=== PATIENT | male | born 1950 | race Caucasian/White ===

== ENCOUNTER 2023-10-20 08:54 | Outpatient (CLI) | payer BC, MEDICARE, OTHER, SELFPAY ==
--- NOTE | ~2023-10-20 | MR_ITS ---
EXAMINATION: MR brain/brain stem wo con DATE: 10/20/2023 09:38 INDICATION: Right-sided headache. TECHNIQUE: Magnetic resonance imaging (MRI) of the brain and brainstem was performed without intraven ous contrast. COMPARISON: None. FINDINGS: There is no intracranial hemorrhage, acute infarction, or abnormal intracranial mass lesion . There are scattered areas of nonspecific increased T2-weighted signal intensity in the cerebral whi te matter, which is within normal limits for the patient's age. The ventricles are normal in size. The paranasal sinuses are clear. The orbits are normal. The mastoid air cells are normal. IMPRESSION: 1. Normal aging brain. Reviewed, dictated and finalized at location E. IMPRESSION: 1. Normal aging brain.
== END 2023-10-20 08:55 ==
LOC: MICIMG 08:55
PROVIDERS: PCP Internal Medicine; Visit Provider Internal Medicine
DX: R51.9 Headache, unspecified (principal)
CPT/HCPCS: 70551

== ENCOUNTER 2024-11-25 14:19 | Inpatient (IN) | payer MEDICARE, BC, OTHER, SELFPAY ==
[2024-11-25] VITALS (26 sets, daily range): BP systolic 138–183; BP diastolic 71–99; PULSE 85–103; RESP 14–29; TEMP 36.8–37.2; O2SAT 94–100; BMI 31.2
--- NOTE | ~2024-11-25 | CT_ITS ---
CLINICAL INDICATION: Abdominal distention and fever COMPARISON: None. TECHNIQUE: Multiple contiguous axial images of the abdomen and pelvis were performed following the ad ministration of with 100 mL Omnipaque-350 intravenous contrast The dose-length product (DLP) was 946.31 mGy-cm. Automated exposure control and iterative reconstruction technique were employed. FINDINGS/OBSERVATIONS: Visualized lower thorax: The bilateral lung bases are clear. The heart is of normal size, without pericardial effusion. Liver: The liver demonstrates homogeneous enhancement and is markedly enlarged measuring 24 cm in longitudin al dimension. Gallbladder and biliary system: The gallbladder is only minimally distended, and otherwise unremarkable. Pancreas: The pancreas enhances homogeneously without ductal dilatation. Spleen: The spleen enhances homogeneously and is not enlarged. Kidneys: Multiple stones are identified within the bilateral kidneys. Within the upper pole of the left kidney is a 12.5 mm calculus. Within the interpolar region of the left kidney is a 14 mm calculus. Within the lower pole of the left kidney is a 12 mm calculus. Within the lower pole of the right kidney is 8 mm calculus. Within the lower pole of the right kidney is a 5.5 mm calculus. Within the lower pole of the right kidney is a 6 mm calculus. Within the upper pole of the right kidney is a 8.4 mm calculus. A rim calcified focus of decreased attenuation is identified exophytic from the upper pole of the rig ht kidney, too small to characterize. Bilateral hydroureteronephrosis, left greater than right, is identified with wall enhancement of the bilateral ureters. No discrete obstructing stone is appreciated. Adrenal glands: Unremarkable. Gastrointestinal tract: Colonic diverticulosis without surrounding inflammatory change. Appendix: The appendix is not definitively visualized. However, no pericecal inflammatory change is identified suggest the presence of acute appendicitis. Vasculature: Calcified atherosclerotic disease. Lymph nodes: No pathologically enlarged or morphologically suspicious lymph nodes within the retroperitoneum or at the root of the mesentery. Pelvic structures: The bladder is distended, and demonstrates significantly thickened hurt[place] with surrounding inflammator y change, findings consistent with cystitis. The prostate gland is enlarged, demonstrating both bulky calcifications and inflammatory change. Body wall and musculoskeletal: Age appropriate degenerative disease within the lower thoracic and lumbosacral spines. IMPRESSION: Findings consistent with infection of the bladder with the bilateral ureteritis, and possible early p yelonephritis. Hepatomegaly. Reviewed, dictated and finalized at location A. IMPRESSION: Findings consistent with infection of the bladder with the bilateral ureteritis , and possible early pyelonephritis. Hepatomegaly.
--- NOTE | ~2024-11-25 | US_ITS ---
US renal BI 11/28/2024 08:33 Procedure: Realtime transabdominal ultrasound of the kidneys and bladder. Indication: Hydronephrosis Comparison: CT dated 11/25/2024 Findings: There is mild-moderate right hydronephrosis and mild left hydronephrosis. There is right re nal cyst measuring 2.2 cm. There are echogenic foci in both kidneys located centrally, suspicious for renal stones, largest in the left kidney measuring 2.3 cm. The right kidney measures 12.5 cm and lef t kidney measures 13.1 cm. Bladder is decompressed by Zuniga catheter. Impression: 1: Bilateral echogenic foci, suspicious for renal stones. 2: Bilateral hydronephrosis, right greater than left. Reviewed, dictated and finalized at location A. Impression: 1: Bilateral echogenic foci, suspicious for renal stones. 2: Bilateral hydronephrosis, right greater than left.
--- NOTE | ~2024-11-25 | XR_ITS ---
CHEST RADIOGRAPH CLINICAL HISTORY: Fevers . COMPARISON: None available TECHNIQUE: Single portable view of the chest. FINDINGS The cardiomediastinal silhouette is unremarkable. Increased interstitial markings are identified bilaterally, findings suggesting mild pulmonary vascul ar congestion. The remainder of the lungs are clear. IMPRESSION: Mild pulmonary vascular congestion, without focal infiltrate or effusion. Reviewed, dictated and finalized at location A.
--- OUTSIDE RECORDS SUMMARY | 2024-11-25 14:28 | XMS_ITS | Encounter Summary ---
Author Organization [facility] Address [address] [place] [address] Care Team Providers Care Engraver Set Up Operator Name Role Phone Unavailable Primary Care Provider Unavailabl e Encounter Details Date Type Department Care Team (Late st Contact Info) Description 07/27/2022 Lab Requisition [facility] Derm[facility] Lab [address] [place] [phone] Matthieu Sapp MD [address] [place] [address] Social History Tobacco Use Types Packs/Day Years Used Date Smoking Tobacco: Never Assessed Sex and Gender Information Value Date Recorded Sex Assigned at Not on file Legal Sex Male 5:02 PM CDT Gender Identity Not on file Sexual Orientation Not on file documented as of this encounter Plan of Treatment Not on file documented as of this encounter Procedures Procedure Name Priority Date/Time Associated Diagnosis Comments DERMATOPATHOLOGY Routine 07/25/2022 12:0 0 AM CDT documented in this encounter Results * DERMATOPATHOLOGY (07/25/2022 12:00 AM CDT) Case Report Dermatopathology Report Case: [id number] Authorizing Provider: Matthieu Sapp MD Collected: 07/25/2022 12:00 AM Ordering Location: [facility] Received: 07/27/2022 05:54 AM Pathologist: Genoveva Cruz MD Specimen: Skin, ant scalp 3 6:00 PM CDT DERMATOPATHOLOGY LABORATORY Final Diagnosis Specimen A. 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 The specimen consists of a shave biopsy measuring 7x7x1 mm. Jar 0. 3 6:00 PM CDT DERMATOPATHOLOGY LABORATORY Microscopic Description Specimen A. SKIN, ant scalp: The epidermis shows parakeratosis, full thickness disorderly maturation of keratinocytes, mitoses at different levels, and dyskeratotic cells. This lesion is present at the margin of the specimen. 3 6:00 PM CDT DERMATOPATHOLOGY LABORATORY Disclaimer An external and internal positive and negative controls are appropriate for the histochemical, immunohistochemical and immunofluorescence stain(s) in this case (if any), except where stated explicitly. The performance characteristics of the stain(s) cited in this report were developed and its performance characteristic determined by the Dermatopathology Laboratory at [facility], directed by Dr. Carine Rebollar. These tests need not be, and therefore are not, approved by the [place] Food and Drug Administration. The tests are used for clinical purposes. Billing Codes Specimen Charges Stain Charges 67534 1 3 6:00 PM CDT DERMATOPATHOLOGY LABORATORY Embedded Images 3 6:00 PM CDT DERMATOPATHOLOGY LABORATORY Pathology/Cytolog y TISSUE SPECIMEN FROM SKIN / Unknown 07/25/2022 07/27/2022 5:54 AM CDT Matthieu Sapp MD LAB - PATHOLOGY/CYTOLOGY ORDERAB LES Final Result DERMATOPATHOLOGY LABORATORY [facility] - Department of Dermatology [address], [address] [phone] documented in this encounter Visit Diagnoses Not on filedocumented in this encounter
--- OUTSIDE RECORDS SUMMARY | 2024-11-25 14:28 | XMS_ITS | Clinical Summary ---
Author Organization [facility] Address [address] [place] [address] Care Team Providers Care Stone Operator Name Role Phone Unavailable Primary Care Provider Unavailabl e Source Comments [facility],non-owned Affiliates and Associated Physician Practices is amultiple site organization consisting of ambulatory clinics and hospital sitesin [place], [place], [place] and [place]. This disclosure is being madepursuant to the Care Everywhere program and may not contain all information available regarding this patient. Last updated 18.[facility] [employer] Social History Tobacco Use Types Packs/Day Years Used Date Smoking Tobacco: Never Assessed Sex and Gender Information Value Date Recorded Sex Assigned at Not on file Legal Sex Male 5:02 PM CDT Gender Identity Not on file Sexual Orientation Not on file Plan of Treatment Health Maintenance Due Date Last Done Comments HEPATITIS C SCREENING 08/06/1968 DTAP/TDAP/TD VACCINES (1 - Tdap) 08/11/1967 PNEUMOCOCCAL VACCINE 50+ (1 of 1 - PCV) 1998 ZOSTER VACCINE (1 of 2) 1998 Respiratory Syncytial Virus (RSV) Vaccine Pt: or over 60 yrs (1 - 1-dose 75+ series) 08/11/2023 COVID-19 VACCINE ( - 2023-2 5 season) 2023 DEPRESSION SCREENING 04/23/2024 INFLUENZA VACCINE (#1) 2024 HEPATITIS B VACCINE Aged Out No longe r eligible based on patient's age to complete this topic HIB VACCINE Aged Out No longer eligi ble based on patient's age to complete this topic HPV VACCINE Aged Out No longer eligi ble based on patient's age to complete this topic MENINGOCOCCAL (Group B) VACC INE SHARED DECISION-MAKING Aged Out No longer eligibl e based on patient's age to complete this topic MENINGOCOCCAL GROUPS A/C/Y/W VACCINE Aged Out No longer eligible b ased on patient's age to complete this topic Insurance ANTH Member Subscriber Plan / Payer (Ef fective 2011-Present) Name:Mark Mays Sr Relation to Subscriber:Self Name:MARCELLE MAYS SR Payer ID:[id number] (NAIC) Type:[facility] Address: [facility] [id number] [place] [id number]
--- OUTSIDE RECORDS SUMMARY | 2024-11-25 14:28 | XMS_ITS | Encounter Summary ---
Author Organization [facility] Address [address] [place] [address] Care Team Providers Care Cotton Gin Yard Supervisor Name Role Phone Unavailable Primary Care Provider Unavailabl e Encounter Details Date Type Department Care Team (Late st Contact Info) Description 01/26/2020 Lab Requisition [facility] DermPath Lab [address] [place] [address] Matthieu Sapp MD [address] [place] [address] Social History Tobacco Use Types [...] Procedure Name Priority Date/Time Associated Diagnosis Comments DERMPATH SLIDE CONSULT Routine 01/26/2020 12:00 AM CDT documented in this encounter Results * DERMPATH SLIDE CONSULT (01/26/2020 12:00 AM CDT) Case Report Dermatopathology Report Case: [id number] Authorizing Provider: Matthieu Sapp MD Collected: 01/26/2020 12:00 AM Ordering Location: [facility] Received: 01/26/2020 05:09 PM Pathologist: Yanna Rebollar MD Specimen: Slide(s), Left lower eyelid, [id number]# [id number] 0 4:19 PM CDT DERMATOPATHOLOGY LABORATORY Final Diagnosis Specimen A. Slide(s), Left lower eyelid, OSC# [id number]: ACTINIC KERATOSIS, ERODED (L57.0) BRISK PLASMACYTIC INFILTRATE (see microscopic description and comment) 0 4:19 PM CDT DERMATOPATHOLOGY LABORATORY at 1618 CDT Clinical History Materials received from: [facility] [address] [place] [id number] Received at the request of Dr. Matthieu Sapp, a consult will be performed on 1 (H&E) slide(s) labeled [id number]. Bx Date: 01/19/2020 BCC, SCC vs other neoplasm. All slides returned. Any additional sections, special stains or immunohistochemical stains performed by our laboratory will be kept here on file. 0 4:19 PM CDT DERMATOPATHOLOGY LABORATORY Microscopic Description Specimen A. Slide(s), Left lower eyelid, OSC# [id number]: There is focal parakeratosis. The lower half of the epidermis shows disorderly maturation of keratinocytes with nuclear pleomorphism. The dermis shows a band-like infiltrate composed almost entirely of plasma cells. The epidermis is focally necrotic and covered with a scale-crust. There is fibrin at the base. COMMENT: The plasmacytic infiltrate is favored to be reactive and secondary to site and chronic inflammation. If there is clinical concern for a a secondary cutaneous plasmacytoma, kappa and lambda in-situ hybridization can be performed to assess for restriction. 0 4:19 PM CDT DERMATOPATHOLOGY LABORATORY Disclaimer An external and internal positive and negative controls are appropriate for the histochemical, immunohistochemical and immunofluorescence stain(s) in this case (if any), except where stated explicitly. The performance characteristics of the stain(s) cited in this report were developed and its performance characteristic determined by the Dermatopathology Laboratory at [facility], directed by Dr. Carine Rebollar. These tests need not be, and therefore are not, approved by the [place] Food and Drug Administration. The tests are used for clinical purposes. Billing Codes Specimen Charges Stain Charges 21475 1 0 4:19 PM CDT DERMATOPATHOLOGY LABORATORY Embedded Images 0 4:19 PM CDT DERMATOPATHOLOGY LABORATORY Pathology/Cytolog y SLIDE / Unknown 01/26/2020 01/26/2020 5:09 PM CDT us Matthieu Sapp MD LAB - PATHOLOGY/CYTOLOGY ORDERAB LES Final Result DERMATOPATHOLOGY LABORATORY [facility] - Department of Dermatology [facility] Specialized Medicine [address] [place] [address], [address]rd [place] [address], [facility] [phone] documented in this encounter Visit Diagnoses Not on filedocumented in this encounter
--- OUTSIDE RECORDS SUMMARY | 2024-11-25 14:28 | XMS_ITS | Clinical Summary ---
Author Organization [facility] Address [address] [facility] [place] [address] Phone Care Team Providers Care Consumer Services Advisor Name Role Phone Unavailable Primary Care Provider Unavailabl e Allergies No known active allergies Medications amLODIPine (NORVASC) 10 MG tablet 06/15/2016 Active atorvastatin (LIPITOR) 40 MG tablet 06/15/2016 Active azelastine (ASTELIN) 137 mcg (0.1 %) nasal spray 06/07/2016 Active FREESTYLE LITE STRIPS Strp 06/09/2016 Active TRUEPLUS LANCETS 28 gauge Misc 06/09/2016 Activ e VIAGRA 50 mg tablet 06/07/2016 Active JANUMET XR 100-1,000 mg ER tablet 06/15/2016 Active tamsulosin (FLOMAX) 0.4 mg 24 hr capsule 06/15/2016 Activ e furosemide (LASIX) 20 MG tablet 04/19/2016 Active simvastatin (ZOCOR) 20 MG tablet Take one tablet (20 mg total) by mouth nightly Active pantoprazole (PROTONIX) [address] tabletIndication s:GERD without esophagitis Take one tablet (40 mg total) by mouth one (1) time a day 30 tablet 1 12/09/2022 Active Active Problems No known active problems Family History Medical History Relation Name Comments Cancer Father Cancer Mother Relation Name Status Comments Father Mother Social History Tobacco Use Types Packs/Day Years Used Date Smoking Tobacco: Never Alcohol Use Standard Drinks/Week Comments No 0 (1 standard drink = 0.6 oz pur e alcohol) PHQ-2 Answer Date Recorded PHQ-2 Score 0 12/09/2022 Sexually Active Control Partners Comments Yes Female Sex and Gender Information Value Date Recorded Sex Assigned at Not on file Legal Sex Male 11:26 AM CDT Gender Identity Not on file Sexual Orientation Not on file Last Filed Vital Signs Vital Sign Reading Time Taken Comments Blood Pressure 126/64 12/09/2022 9:53 AM CDT Pulse 84 12/09/2022 9:53 AM CDT Temperature 36.6 C (97.9 F) 12/09/2022 9:53 AM CDT Respiratory Rate - - Oxygen Saturation 96% 12/09/2022 9:53 AM CDT Inhaled Oxygen Concentration - - Weight 106.1 kg (234 lb) 12/09/2022 9:53 AM CDT Height 177.8 cm (5' 10) 12/09/2022 9:53 AM CDT Body Mass Index 33.58 12/09/2022 9:53 AM CDT Plan of Treatment Health Maintenance Due Date Last Done Comments Hepatitis C Antibody Screen 1968 Medicare Subsequent AWV G0439 07/22/2014 RSV Immunization Pa tients or 60+ Years (1 - 1-dose 75+ series) 08/11/2023 Annual Depression Screening 12/10/2023 12/09/2022 COVID-19 Vaccine (3 2023-2 5 season) 2023 06/30/2020, 06/02/2020 Influenza Vaccine 12/22/2024 01/02/2021, , 12/31/2017, Additional history exists Pneumococcal Vaccine Age 50+ Completed 11/10/2019, 10/07/2018 Insurance [facility] [address] [id number] MEDICARE [facility]
--- OUTSIDE RECORDS SUMMARY | 2024-11-25 14:28 | XMS_ITS | Clinical Summary ---
Author Organization [facility] Address [address] [place] [address] Phone Care Team Providers Care Rose Grader Name Role Phone Mateus Lewis MD Primary Care Provider [phone] Allergies No known active allergies Medications amLODIPine (NORVASC) 10 mg tablet Take 10 mg by mouth daily. 7 Active atorvastatin (LIPITOR) 40 mg tablet Take 40 mg by mouth late in the day. 7 Active azelastine (ASTELIN) 137 mcg/actuation nasal spray Administer 1 [facility] in each nostril 1 time daily as needed. 7 Active furosemide (LASIX) 20 mg tablet Take 20 mg by mouth daily. 6 Active sitaGLIPtin-met FORMIN (JANUMET XR) 100-1,000 mg Extended Release 24 hour tablet Take 1,000 mg by mouth daily. 7 Active esomeprazole (NexIUM) 40 mg Capsule, Delayed Release(E.C.) Take 40 mg by mouth daily. 7 Active tamsulosin (FLOMAX) 0.4 mg capsule Take 0.4 mg by mouth daily. 7 Active sildenafil (VIAGRA) 50 mg tablet Take 50 mg by mouth daily. 7 Active HYDROcodone-xavi taminophen (NORCO) 5-325 mg tablet Take 1 Tablet by mouth every 6 hours as needed for Pain, Moderate. Max Daily Amount: 4 Tablets 25 Tablet 8 Active Social History Tobacco Use Types Packs/Day Years Used Date Smoking Tobacco: Never Smokeless Tobacco: Never Alcohol Use Standard Drinks/Week Comments No 0 (1 standard drink = 0.6 oz pur e alcohol) Sex and Gender Information Value Date Recorded Sex Assigned at Not on file Legal Sex Male 11:19 AM CDT Gender Identity Not on file Sexual Orientation Not on file Last Filed Vital Signs Vital Sign Reading Time Taken Comments Blood Pressure 133/71 04/09/2018 8:13 AM HOME APPLIANCE WASHING MACHINE MECHANIC Pulse 89 04/09/2018 8:13 AM HOME APPLIANCE WASHING MACHINE MECHANIC Temperature 37.2 C (98.9 F) 04/09/2018 8:13 AM HOME APPLIANCE WASHING MACHINE MECHANIC Respiratory Rate 16 04/09/2018 8:13 AM HOME APPLIANCE WASHING MACHINE MECHANIC Oxygen Saturation 93% 04/09/2018 8:13 AM HOME APPLIANCE WASHING MACHINE MECHANIC Inhaled Oxygen Concentration - - Weight 110.8 kg (244 lb 3.2 oz) 04/08/2018 5:41 AM HOME APPLIANCE WASHING MACHINE MECHANIC Height 177.8 cm (5' 10) 04/08/2018 5:41 AM HOME APPLIANCE WASHING MACHINE MECHANIC Body Mass Index 35.04 04/08/2018 5:41 AM HOME APPLIANCE WASHING MACHINE MECHANIC Plan of Treatment Health Maintenance Due Date Last Done Comments DTAP/TDAP/TD VACCINES (1 - Tdap) 08/11/1967 PNEUMOCOCCAL VACCINE 50+ YEARS (1 of 1 - PCV) 08/10/18 99 ZOSTER VACCINE (1 of 2) 1998 RSV VACCINE (60+ or ) (1 - 1-dose 75+ series) 08/11/2023 INFLUENZA VACCINE (#1) 2024 Medical Devices Implanted Type Area Salad Chef Device Identifier Shelf Expiration Date Model / Serial / Lot Hemostatic Surgicel 2x14in 1952 - [id number] Implanted:Qty: 1 on 04/08/2018 by Franklin Casey MD at [facility] Hemostatic N/A: Neck [employer] 12/21/20211950 / / [id number] Insurance MEDICARE PART A AND B FOR LIFE BCBS BLUE ACCESS/TRUE BLUE PPO Advance Directives For more information, please contact: [phone] * Full Code (Latest Code Status on File) Date Activated Date Inactivated Comments 04/08/2018 10:18 AM 04/09/2018 4:04 PM * Full Code Date Activated Date Inactivated Comments 04/08/2018 5:47 AM 04/08/2018 10:18 AM Care Teams Rose Grader Relationship Specialty Start Date End Date Mateus Lewis MD [address] [place] [phone] PCP - General Internal Medicine 03/19/18
--- OUTSIDE RECORDS SUMMARY | 2024-11-25 14:28 | XMS_ITS | Encounter Summary ---
Author Organization [facility] Address [facility] [place] [address] Care Team Providers Care Information Technology Specialist Name Role Phone Jillian Tena ALUM OPERATOR Primary Care Provider [phone] Encounter Details Date Type Department Care Team (Latest Contact Info) Description 10/03/2024 Results Follow-Up [facility] Multispecialty Care - [place] [address] [place] [address] Jillian Tena NP [address] [place] [address] COMPREHENSIVE METABOLIC PANEL, HEPATITIS C ANTIBODY, VITAMIN D 25 OH, PROSTATE SPECIFIC ANTIGEN,SCREENING Social History Tobacco Use Types Packs/Day Years Used Date Smoking Tobacco: Never Passive Smoke Exposure: Never Smokeless Tobacco: Never Alcohol Use Standard Drinks/Week Comments Yes 5 (1 standard drink = 0.6 oz pur e alcohol) 32oz beer on Sunday AUDIT-C Answer Date Recorded Frequency of Alcohol Consumption 4 or more times a week 10/07/2018 Average Number of Drinks 1 or 2 019 Frequency of Binge Drinking Never 09/21 PHQ-2 Answer Date Recorded Patient Health Questionnaire-2 Score 0 07/26/2023 Sex and Gender Information Value Date Recorded Sex Assigned at Male 04/11/2018 3:37 PM TELEPHONE SUPERVISOR Legal Sex Male 5:13 PM CDT Gender Identity Male 04/11/2018 3:37 PM TELEPHONE SUPERVISOR Sexual Orientation Straight 04/11/2018 3: 37 PM TELEPHONE SUPERVISOR documented as of this encounter Plan of Treatment Upcoming Encounters Date Type Department Care Team (Late st Contact Info) Description 04/13/2025 2:20 PM TELEPHONE SUPERVISOR Office Visit [facility] Multispecialty Care - [facility] [address] [facility], [place] [address] [place] [address] Cleve Montoya MD [address] [facility], [facility] [address] [place] [address] 04/14/2025 11:00 AM TELEPHONE SUPERVISOR [facility] [place] [address] [place] [address] Jillian Tena NP [address] [place] [address] documented as of this encounter Visit Diagnoses Not on filedocumented in this encounter Care Teams Information Technology Specialist Relationship Specialty Start Date End Date Jillian Tena NP [address] [place] [address] PCP - General NURSE PRACTITIONER 02/14/24 documented as of this encounter
--- OUTSIDE RECORDS SUMMARY | 2024-11-25 14:28 | XMS_ITS | Encounter Summary ---
Author Organization [facility] Address [address] [place] [address] Care Team Providers Care Buyer Intern Name Role Phone Unavailable Primary Care Provider Unavailabl e Encounter Details Date Type Department Care Team (Late st Contact Info) Description 08/07/2022 Lab Requisition [facility] DermPath Lab [address] [place] [phone] Matthieu Sapp MD [address] [place] [address] Social History Tobacco Use Types [...] Priority Date/Time Associated Diagnosis Comments DERMATOPATHOLOGY Routine 08/07/2022 12:0 0 AM CDT documented in this encounter Results * DERMATOPATHOLOGY (08/07/2022 12:00 AM CDT) Case Report Dermatopathology Report Case: [id number] Authorizing Provider: Matthieu Sapp MD Collected: 08/07/2022 12:00 AM Ordering Location: [facility] Lab Received: 08/07/2022 04:34 PM Pathologist: Zoya Russell MD Specimens: A) - Skin, left max B) - Skin, anterior scalp 12:13 PM CDT DERMATOPATHOLOGY LABORATORY Final Diagnosis Specimen A. SKIN, left max: HYPERPLASTIC (HYPERTROPHIC) ACTINIC KERATOSIS; EXTENDING TO THE BASE OF THE SPECIMEN (L57.0) (see microscopic description and comment) Specimen B. SKIN, anterior scalp: FIBROSING GRANULATION TISSUE (L90.5) (see microscopic description) 3 12:13 PM CDT DERMATOPATHOLOGY LABORATORY at 1213 CDT Clinical History A: Patch/ Almaguer's B: Bx Proven SCC 3 12:13 PM CDT DERMATOPATHOLOGY LABORATORY Gross Description Specimen A: Received is one formalin filled container labeled with the patient's name and designated left max. The specimen consists of a curettage and desiccation biopsy measuring [id number]. Jar 0. Specimen B: Received is one formalin filled container labeled with the patient's name and designated anterior scalp. The specimen consists of a curettage and desiccation biopsy measuring 3m9i4hf, 0n5y4ko and 2b5y3ix. Jar 0+. 3 12:13 PM CDT DERMATOPATHOLOGY LABORATORY Microscopic Description Specimen A. SKIN, left max: There is hyperkeratosis alternating with parakeratosis. There is epidermal hyperplasia with disorderly maturation of keratinocytes with nuclear pleomorphism confined to the lower half of the epidermis. This process extends to the base of the specimen. COMMENT: A squamous cell carcinoma cannot be ruled out. Specimen B. SKIN, anterior scalp: There are an neutrophilic serous crust with focal dermis available with increased number of fibroblasts, dilated blood vessels, and a mixed inflammatory cell infiltrate in an edematous stroma. P63 fails to highlight tumor in the dermis. Additional deeper sections were obtained and reviewed. 3 12:13 PM T DERMATOPATHOLOGY LABORATORY Disclaimer An external and internal positive and negative controls are appropriate for the histochemical, immunohistochemical and immunofluorescence stain(s) in this case (if any), except where stated explicitly. The performance characteristics of the stain(s) cited in this report were developed and its performance characteristic determined by the Dermatopathology Laboratory at [facility], directed by Dr. Carine Rebollar. These tests need not be, and therefore are not, approved by the [place] Food and Drug Administration. The tests are used for clinical purposes. Billing Codes Specimen Charges Stain Charges 61728 14358 1 1 77313 1 3 12:13 PM CDT DERMATOPATHOLOGY LABORATORY Embedded Images 3 12:13 PM CDT DERMATOPATHOLOGY LABORATORY Pathology/Cytology TISSUE SPECIMEN FROM SKIN / Unknown 08/07/2022 08/07/2022 4:34 PM CDT Miscellaneous samples (specimen) TISSUE SPECIMEN FROM SKIN / Unknown 08/07/2022 08/07/2022 4:34 PM CDT us Matthieu Sapp MD LAB - PATHOLOGY/CYTOLOGY ORDERAB LES Final Result DERMATOPATHOLOGY LABORATORY [facility] - Department of Dermatology [facility] Specialized Medicine [address] [place] [address], [address] [phone] documented in this encounter Visit Diagnoses Not on filedocumented in this encounter
--- OUTSIDE RECORDS SUMMARY | 2024-11-25 14:28 | XMS_ITS | Clinical Summary ---
Author Organization [facility] Address [facility] [place] [address] Care Team Providers Care Assistant Women'S Tennis Coach Name Role Phone Jillian Tena NP Primary Care Provider [phone] Allergies No known active allergies Medications CPAP DEVICE, DME, 1 Device by Does not apply route. Active cranberry 500 MG CapIndications:Pure hypercholesterolemia,Es sential hypertension,Type 2 diabetes mellitus with complication, without long-term current use of insulin ([facility] HHS/HCC),Allergic rhinitis,Erectile dysfunction of nonorganic origin,Gastroesophageal reflux disease without esophagitis,Joint pain,Generalized edema Take 1 tablet (500 mg total) by mouth daily. 90 tablet 3 01/14/20 24 Active Glucose Blood (FREESTYLE LITE) test stripIndications:Essent ial hypertension,Type 2 diabetes mellitus with complication, without long-term current use of insulin ([facility] HHS/HCC),Allergic rhinitis,Erectile dysfunction of nonorganic origin,Gastroesophageal reflux disease without esophagitis FreeStyle Lite Test In Vitro StripUSE ONE TO TWO TIMES EVERYDAY directed 200 strip 3 01/14/20 Active Lancets (FREESTYLE) lancetsIndications:Esse ntial hypertension,Type 2 diabetes mellitus with complication, without long-term current use of insulin ([facility] HHS/HCC),Allergic rhinitis,Erectile dysfunction of nonorganic origin,Gastroesophageal reflux disease without esophagitis 1 each by Other route 2 (two) times daily. 90 each 3 01/14/20 24 Active vibegron (GEMTESA) 75 MG tablet Take 1 tablet (75 mg total) by mouth daily. 04/14/20 24 Active azelastine (ASTELIN) 0.1 % nasal sprayIndications:Allerg ic rhinitis due to other allergic trigger, unspecified seasonality 2 sprays by Nasal route 2 (two) times daily. 90 mL 3 04/14/20 24 Active aspirin 81 MG chewable tabletIndications:Type 2 diabetes mellitus with other circulatory complication, without long-term current use of insulin ([facility]) Chew 1 tablet (81 mg total) by mouth daily. 90 tablet 1 04/14/20 24 Active fish oil (OMEGA-3 FATTY ACID) 1000 MG Cap capsuleIndications:Reggie rgic rhinitis due to other allergic trigger, unspecified seasonality,Essential hypertension,Type 2 diabetes mellitus with complication, without long-term current use of insulin ([facility]),Erectile dysfunction of nonorganic origin,Gastroesophageal reflux disease without esophagitis Take 1 capsule (1,000 mg total) by mouth 2 (two) times daily. 180 capsule 3 04/14/20 Active Opdwlshpboj-Ioldyomnh-Z it C-Mn (GLUCOSAMINE CHONDR 1500 COMPLX) CapIndications:Arthralg ia, unspecified joint Take 1 capsule by mouth daily. 90 capsule 1 04/14/20 24 Active metroNIDAZOLE (METROCREAM) 0.75 % creamIndications:Genera lized edema APPLY TO FACE TWICE A DAY 45 g 6 04/14/20 24 Active Multiple Vitamin (MULTIVITAMIN ADULT) TabIndications:Allergic rhinitis due to other allergic trigger, unspecified seasonality,Essential hypertension,Type 2 diabetes mellitus with complication, without long-term current use of insulin ([facility]),Erectile dysfunction of nonorganic origin,Gastroesophageal reflux disease without esophagitis,Arthralgia, unspecified joint,Generalized edema,Pure hypercholesterolemia Take 1 tablet by mouth daily. 90 tablet 3 04/14/20 24 Active vitamin B-12 (CYANOCOBALAMIN) (CYANOCOBALAMIN) 1000 mcg tabletIndications:Aller gic rhinitis due to other allergic trigger, unspecified seasonality,Essential hypertension,Type 2 diabetes mellitus with complication, without long-term current use of insulin ([facility]),Erectile dysfunction of nonorganic origin,Gastroesophageal reflux disease without esophagitis Take 1 tablet (1,000 mcg total) by mouth daily. 90 tablet 1 04/14/20 24 Active vitamin C (ASCORBIC ACID) 500 MG tabletIndications:Aller gic rhinitis due to other allergic trigger, unspecified seasonality,Essential hypertension,Type 2 diabetes mellitus with complication, without long-term current use of insulin ([facility]),Erectile dysfunction of nonorganic origin,Gastroesophageal reflux disease without esophagitis Take 1 tablet (500 mg total) by mouth daily. 90 tablet 1 04/14/20 24 Active Coenzyme Q10 (COQ10) 200 MG CapIndications:Allergic rhinitis due to other allergic trigger, unspecified seasonality,Essential hypertension,Type 2 diabetes mellitus with complication, without long-term current use of insulin ([facility]),Erectile dysfunction of nonorganic origin,Gastroesophageal reflux disease without esophagitis Take 1 capsule by mouth daily. 90 capsule 3 08/27/19 25 Active lisinopril (PRINIVIL) 40 MG tabletIndications:Essen tial hypertension Take 1 tablet (40 mg total) by mouth daily. 90 tablet 1 08/27/19 25 Active metFORMIN ER (GLUCOPHAGE-XR) 500 MG 24 hr tabletIndications:Type 2 diabetes mellitus with other circulatory complication, without long-term current use of insulin ([facility]) Take 1 tablet (500 mg total) by mouth daily with breakfast. 90 tablet 1 08/27/19 25 Active pantoprazole EC (PROTONIX) 40 MG tabletIndications:Gastr oesophageal reflux disease without esophagitis Take 1 tablet (40 mg total) by mouth daily. 90 tablet 1 08/27/19 25 Active sildenafil (VIAGRA) 50 MG tabletIndications:Erect ile dysfunction of nonorganic origin Take 1 tablet (50 mg total) by mouth daily as needed. 10 tablet 1 08/27/19 25 Active simvastatin (ZOCOR) 40 MG tabletIndications:Pure hypercholesterolemia Take 1 tablet (40 mg total) by mouth nightly at bedtime. 90 tablet 1 08/27/19 25 Active SITagliptin (JANUVIA) 50 MG tabletIndications:Type 2 diabetes mellitus with other circulatory complication, without long-term current use of insulin ([facility]) Take 1 tablet (50 mg total) by mouth daily. 90 tablet 1 08/27/19 25 Active tamsulosin (FLOMAX) 0.4 MG CapIndications:Erectile dysfunction of nonorganic origin Take 1 capsule (0.4 mg total) by mouth daily. 90 capsule 1 08/27/19 25 Active testosterone (ANDROGEL) 20.25 MG/ACT (1.62%) GelIndications:Hypogona dism, testicular Place 20.25 mg onto the skin daily. 75 g 1 08/27/19 25 Active dapagliflozin (FARXIGA) 10 MG tabletIndications:Stage 3b chronic kidney disease ([facility]) Take 1 tablet (10 mg total) by mouth daily. 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 Skin lesions 10/02/2024 Rosacea 10/02/2024 Stage 3b chronic kidney disease 07/26/2023 Aortic root dilation 10/03/2022 Persistent proteinuria 07/28/2022 Obstructive sleep apnea syndrome, severe 022 Hypercalcemia 10/16/2016 Abdominal hernia 09/21/2016 Parathyroid disease ([facility]) 09/21/2016 Primary hyperparathyroidism ([facility]) 09/21/2016 Umbilical hernia 01/19/2016 Type 2 diabetes mellitus ([facility]) 06/17 Allergic rhinitis 07/10/2013 Benign essential hypertension 02/05/2012 Esophageal reflux 02/05/2012 Hyperlipidemia 02/05/2012 Hypogonadism, testicular 01/25/2012 Erectile dysfunction of nonorganic origin 2011 Encounters Date Type Department Care Team Description 11/11/2024 Telephone [place] [address] [address] [place] [address] Jillian Tena, CHARGE MANAGER Request (Information) 11/06/2024 Scan [facility] INFO SRVCS Scanned, Doc Med [facility] 10/31/2024 Telephone [place] [address] [address] [place] [address] Jillian Tena, CHARGE MANAGER Referral 10/14/2024 Telephone [place] [address] [facility] [address] [place] [address] Jillian Tena, CHARGE MANAGER Medication Request 10/03/2024 Results Follow-Up [place] [address] [facility] [address] [place], [place] [id number] Jillian Tena, CHARGE MANAGER COMPREHENSIVE METABOLIC PANEL, HEPATITIS C ANTIBODY, VITAMIN D 25 OH, PROSTATE SPECIFIC ANTIGEN,SCREENING 10/03/2024 [facility] [place] [address] [address] [place] [address] Jillian Tena, CHARGE MANAGER Medication Problem 10/02/2024 9:00 AM CDT [facility] [place] [address] [place] [address] Jillian Tena, CHARGE MANAGER Physical 10/02/2024 - 10/02/2024 11:59 PM CDT Hospital Encounter [facility] [address] Jillian Tena, CHARGE MANAGER Discharge Disposition: Home or Self Care (Routine Discharge) 10/02/2024 Telephone [address] [address] [address] [place] [address] Jillian Tena, CHARGE MANAGER Record Request 10/02/2024 Travel 09/29/2024 Results Follow-Up [place] [address] [address] [place] [address] Jillian Tena, AMERICO LIPID PANEL, COMPREHENSIVE METABOLIC PANEL, HEMOGLOBIN, GLYCOSYLATED 09/26/2024 8:00 AM CDT Laboratory Only [place] [address] [address] [place] [address] Jillian Tena, AMERICO 09/26/2024 Scan HEALTH INFO SRVCS Scanned, Doc [facility] 09/26/2024 - 09/26/2024 11:59 PM CDT Hospital Encounter [facility] [address] [place] [address] Jillian Tena, CHARGE MANAGER Discharge Disposition: Home or Self Care (Routine Discharge) 09/26/2024 Travel 09/18/2024 [facility]phone [facility] [place] [address] [address] [address] [place] [address] Jillian Tena, CHARGE MANAGER Reschedule 08/26/2024 Orders Only [facility] Multispecialty Care - [place] [address] [place] [address] Nancy Parr MA from Last 3 Months Immunizations Immunization Administration Dates Next Due Arexvy Respiratory Syncytial Virus (RSV, adjuvanted) 0.5 mL, PF 04/18/2023 Fluzone High Dose - >Age 65 (Prefilled Syringe) 12/22/2022,01/02/2021,12/25/2018 12/23/2023 Influenza (Generic) 12/31/2017, 7,01/13/2013,01/07 Influenza Adult (Generic) 01/05/2022 MODERNA COVID-19 (12+) MRNA, LNP-S, PF, 100 MCG/ 0.5 ML DOSE 06/30/2020,06/02/2020 PFIZER COVID-19 BIVALENT (12 +) mRNA, LNP-S, PF, 30 MCG/0.3 ML DOSE 01/05/2022 Pneumococcal (Pneumovax 23) 11/10/2019 Pneumococcal (Prevnar 13) 10/07/2018 Shingrix 04/07/2019,01/31/2019 Tdap (Adacel) 04/14/2024 Tdap (Generic) 09/11/2013 Family History Medical History Relation Comments Esophageal cancer Brother Stomach cancer Brother Cancer Father over 90 Hypertension Mother Stroke Mother brain tumor Mother Mental Health Son Relation Status Comments Brother (Age 72) Father Mother Son Suicide Social History Tobacco Use Types Packs/Day Years Used Date Smoking Tobacco: Never Passive Smoke Exposure: Never Smokeless Tobacco: Never Tobacco Cessation:Counseling Given: No Alcohol Use Standard Drinks/Week Comments Yes 5 [...] Sex Assigned at Male 04/11/2018 3:37 PM BEE ROBBER Legal Sex Male 5:13 PM CDT Gender Identity Male 04/11/2018 3:37 PM BEE ROBBER Sexual Orientation Straight 04/11/2018 3: 37 PM BEE ROBBER Last Filed Vital Signs Vital Sign Reading Time Taken Comments Blood Pressure 134/74 10/02/2024 8:41 AM CDT Pulse 79 10/02/2024 8:41 AM CDT Temperature 36.4 C (97.6 F) 10/02/2024 8:41 AM CDT Respiratory Rate 19 10/02/2024 8:41 AM CDT Oxygen Saturation 98% 10/02/2024 8:41 AM CDT Inhaled Oxygen Concentration - - Weight 107 kg (236 lb) 10/02/2024 8:41 AM CDT Height 177.8 cm (5' 10) 10/02/2024 8:41 AM CDT Body Mass Index 33.86 10/02/2024 8:41 AM CDT Plan of Treatment Upcoming Encounters Date Type Department Care Team (Late st Contact Info) Description 04/13/2025 2:20 PM BEE ROBBER [facility] 3 [facility], [facility] [address] [place] [address] Cleve Montoya MD 3 [facility], [address] [address] 04/14/2025 11:00 AM BEE ROBBER [facility] [place] [address] [place] [address] Jillian Tena NP [address] [place] [address] Health Maintenance Due Date Last Done Comments Annual Medicare Wellness Visit 2013 Diabetes: Retinopathy Eye Exam 07/12/2023 07/11/2021 COVID-19 Vaccine ( season) 2023 01/05/2022, 06/30/2020, 06/02/2020 PHQ-2 (Physician [place]) 04/23/2024 07/26/2023 Hemoglobin A1C 03/28/2025 09/26/2024, 03/24, 07/26/2023, Additional history exists Kidney Health Evaluation 04/14/2025 04/14/2024 Lipid Panel 09/26/2025 09/26/2024, 03/24, 07/26/2023, Additional history exists DTaP, Tdap and Td Vaccines (3 - Td or Tdap) 04/14/2034 04/14/2024, 09/11/2013 Zoster Vaccines Completed 04/07/2019, 01/31/2019 Pneumococcal Vaccine: 50+ Years Completed 11/10/2019, 10/07/2018 Colorectal Cancer Screening Colonoscopy (10 Years) Discontinued 01/04/2021, 08/23/2015, RSV Immunization or 60+ Years Completed 04/18/2023 Hepatitis C Completed 10/02/2024 Meningococcal B Vaccine Aged Out No l onger eligible based on patient's age to complete this topic Meningococcal Vaccine Aged Out No [email or web address] yanet eligible based on patient's age to complete this topic RSV Immunizations Under 20 Months Aged Out No longer eligible based on patient's age to complete this topic Procedures Procedure Name Priority Date/Time Associated Diagnosis Comments PROSTATE SPECIFIC ANTIGEN,SCREENING Routine 10/02/2024 9:49 AM CDT Screening for prostate cancer VITAMIN D, 25 OH Routine 10/02/2024 9:49 AM CDT Vitamin D deficiency HEPATITIS C ANTIBODY Routine 10/02/2024 9:49 AM CDT Need for hepatitis C screening test COMPREHENSIVE METABOLIC PANEL Routine 10/02/2024 9:49 AM CDT Stage 3b chronic kidney disease (CMS/HCC) REMOVAL IMPACTED CERUMEN IRRIGATION/LAVAGE UNILAT Routine 10/02/2024 9:00 AM CDT Impacted cerumen of left ear COLLECTION VENOUS BLOOD VENIPUNCTURE Routine 09/26/2024 8:32 AM CDT Type 2 diabetes mellitus with other circulatory complication, without long-term current use of insulin (CMS/HCC [facility]) CK (CPK) Routine 09/26/2024 8:06 AM CDT Essential hypertension Benign essential hypertension Type 2 diabetes mellitus with other circulatory complication, without long-term current use of insulin ([facility] HHS/[facility]) COMPREHENSIVE METABOLIC PANEL Routine 09/26/2024 8:06 AM CDT Stage 3b chronic kidney disease ([facility]) LIPID PANEL Routine 09/26/2024 8:06 AM CDT Type 2 diabetes mellitus with other circulatory complication, without long-term current use of insulin ([facility]) HEMOGLOBIN, GLYCOSYLATED Routine 09/26/2024 Type 2 diabetes mellitus with other circulatory complication, without long-term current use of insulin ([facility]) DIABETIC RETINOPATHY EXAM (NEGATIVE)(SCAN ORDER) Routine 07/11/2021 COLONOSCOPY GENERIC (SCAN ORDER) 01/04/2021 from Last 3 Months or Most Recently Relevant to Health Maintenance Results * PROSTATE SPECIFIC ANTIGEN,SCREENING (10/02/2024 9:49 AM CDT) PSA 3.21 <4.00 NG/ML 10/02/2024 3:46 PM CDT [facility] Comment: ASSAY PERFORMED BY [employer] IMMUNOASSAY METHODOLOGY USING SIEMENS DIMENSION REAGENT. PATIENT RESULTS DETERMINED BY ASSAYS FROM DIFFERENT MANUFACTURERS AND/OR BY DIFFERENT METHODS MAY NOT BE COMPARABLE. 10/02/2024 9:49 AM CDT us Jillian Tena NP LABORATORY Final Resul t [facility] [address] [place] [address], [place] [phone] * (ABNORMAL) COMPREHENSIVE METABOLIC PANEL (10/02/2024 9:49 AM CDT) Only the most recent of2 resultswithin the time period is included. SODIUM S/P/B 138 136 - 145 MMOL/L 10/02/2024 4:41 PM [facility] POT[facility]SIUM S/P/B 4.5 3.5 - 5.1 MMOL/L 10/02/2024 4:41 PM T [facility] CHLOR[facility] S/P/B 102 98 - 107 MMOL/L 10/02/2024 4:41 PM [facility] CO2 29.1 21 - 32 MMOL/L 10/02/2024 4:41 PM [facility] GLUCOSE 188(H) 70 - 99 MG/DL 10/02/2024 4:41 PM [facility] BUN 31(H) 7 - 18 MG/DL 10/02/2024 4:41 PM [facility] CREATININE S/P/B 1.82(H) 0.70 - 1.30 MG/DL 10/02/2024 4:41 PM [facility] CALCIUM S/P/B 10.7(H) 8.4 - 10.5 MG/DL 10/02/2024 4:41 PM [facility] BILIRUBIN TOTAL S/P/B 0.4 0.2 - 1.0 MG/DL 10/02/2024 4:41 PM [facility] ALKALINE PHOSPHATASE S/P/B 70 45 - 115 U/L 10/02/2024 4:41 PM [facility] AST 14(L) 15 - 37 U/L 10/02/2024 4:41 PM CDT [facility] ALT 26 16 - 63 U/L 10/02/2024 4:41 PM T [facility] TOTAL PROTEIN S/P/B 7.4 6.4 - 8.2 G/DL 10/02/2024 4:41 PM [facility] ALBUMIN S/P/B 3.8 3.4 - 5.0 G/DL 10/02/2024 4:41 PM CDT [facility] ANION GAP 6.9 5 - 15 MMOL/L 10/02/2024 4:41 PM CDT [facility] Comment:REFERENCE RANGE NOT ESTABLISHED OSMOLALITY (CALC) 298 MOSM/KG 025 4:41 PM CDT [facility] Comment:REFERENCE RANGE NOT ESTABLISHED GFR ESTIMATE 38(L) >90 ML/MIN/1. 73 M2 10/02/2024 4:41 PM CDT [facility] GFR NOTES GFR REFERENCE S: 10/02/2024 4:41 PM CDT [facility] Comment: THE ESTIMATED GFR IS CALCULATED USING THE 2020 CKD-EPI EQUATION. THE FOLLOWING CATEGORIES FOR GRADING RENAL FUNCTION ARE RECOMMENDED BY THE INTERNATIONAL SOCIETY OF NEPHROLOGY (KDIGO 2012 CLINICAL PRACTICE GUIDELINE). G1,NORMAL OR HIGH: >89 ml/min/1.73 m2 G2,MILDLY DECREASED: 60-89 ml/min/1.73 m2 G3A,MILDLY TO MODERATELY DECREASED: 45-59 ml/min/1.73 m2 G3B,MODERATELY TO SEVERELY DECREASED: 30-44 ml/min/1.73 m2 G4,SEVERELY DECREASED: 15-29 ml/min/1.73 m2 G5,KIDNEY FAILURE: <15 ml/min/1.73 m2 10/02/2024 9:49 AM CDT us Jillian Tena NP LABORATORY Final Resul t [facility] [address] [place] [address], * HEPATITIS C ANTIBODY (10/02/2024 9:49 AM CDT) HEPATITIS C AB NON-REACTI VE NON-REACT ILENE 10/02/2024 7:15 PM CDT [facility] Comment: ANTIBODIES TO HCV NOT DETECTED. DOES NOT EXCLUDE THE POSSIBILITY OF EXPOSURE TO HCV. 10/02/2024 9:49 AM CDT Jillian Tena CHARGE MANAGER LABORATORY Final Resul t [facility] [address] [place] [address], [place] [phone] [id number] * (ABNORMAL) VITAMIN D 25 OH (10/02/2024 9:49 AM CDT) VITAMIN D 25 HYDROXY TOTAL S/P/B 141.1(H) 30 - 100 NG/ML 10/02/2024 5:01 PM CDT [facility] Comment: DEFICIENT <20 INSUFFICIENT 20-30 SUFFICIENT 30-100 10/02/2024 9:49 AM CDT Jillian Tena NP LABORATORY Final Resul t Performing Organization Address City/[facility] Co de Phone Number [facility] [address] [place] [address], [place] [phone] * REMOVAL IMPACTED CERUMEN IRRIGATION/LAVAGE UNILAT (10/02/2024 9:00 AM CDT) Narrative Jillian Tena NP - 10/02/2024 9:00 AM CDT Jillian Tena NP 10/02/2024 9:54 AM *Ear Cerumen Removal Date/Time: 10/02/2024 9:00 AM Performed by: Jillian Tena NP Authorized by: Jillian Tena NP Location details: left ear Procedure type: irrigation Jillian Tena NP PROCEDURE/MINOR SURGICAL OR DERABLES Final Result * (ABNORMAL) LIPID PANEL (09/26/2024 8:06 AM CDT) CHOLESTEROL 139 <200 MG/DL 09/26/2024 2:31 PM CDT [facility] TRIGLYCERIDES 137 <150 MG/DL 09/26/2024 2:31 PM CDT [facility] HDL 35(L) >40 MG/DL 09/26/2024 2:31 PM CDT [facility] LDL-C 77 <100 MG/DL 09/26/2024 2:31 PM CDT [facility] VLDL CALCULATION 27 5 - 28 MG/DL 09/26/2024 2:31 PM CDT [facility] CHOL/HDL RATIO 4.0 0.0 - 4.0 09/26/2024 2:31 PM CDT [facility] LDL/HDL 2.2(H) 0.41 - 2.13 09/26/2024 2:31 PM CDT [facility] NON HDL CHOLESTEROL 104 <140 MG/DL 09/26/2024 2:31 PM CDT [facility] 09/26/2024 8:06 AM CDT Jillian Tena NP LABORATORY Final Resul t [facility] [address] [place] [address], * CK (CPK) (09/26/2024 8:06 AM CDT) CPK 125 39 - 308 U/L 09/26/2024 6:59 PM CDT [facility] 09/26/2024 8:06 AM CDT Mateus Lewis MD LABORATORY Final Result [facility] [address] [place] [address], [place] [phone] [id number] * HEMOGLOBIN, GLYCOSYLATED (09/26/2024) HGB A1C 6.7 % [id number] [place] 09/26/2024 us Jillian Tena CHARGE MANAGER LABORATORY Final Resul t [id number] [place] [address] [facility] [address] [place] [address], * DIABETIC RETINOPATHY EXAM (NEGATIVE)(SCAN) (07/11/2021) us Documents Scanned SCANNING Final Result HS ONBASE * COLONOSCOPY GENERIC (01/04/2021) 01/04/2021 Narrative 01/04/2021 Ordered by an unspecified provider. us Documents Scanned SCANNING Final Result from Last 3 Months or Most Recently Relevant to Health Maintenance Insurance [facility] [employer] [facility] Care Teams Assistant Women'S Tennis Coach Relationship Specialty Start Date End Date Jillian Tena NP [address] [facility] [address] [place] [address] PCP - General NURSE PRACTITIONER 02/14/24
--- NOTE | 2024-11-25 15:44 | ED.GENADULT ---
HPI - General Adult General Chief complaint: Fever Stated complaint: sore kidneys, fever Time Seen by Provider: 11/25/24 15:28 History of Present Illness HPI narrative: This is a 74-year-old male presenting ED with chief complaint of urinary symptoms. Patient says he has been having to get up every night every 20 minutes urinate for the last 2 weeks. Today when he was walking outside at 1:00 p.m. he has developed a fever. Patient states he has a history of kidney damage. He denies headache neck pain chest pain difficulty breathing or abdominal pain. Related Data Home Medications ?Medication ?Instructions ?Recorded ?Confirmed ?Last Taken ?Type dapagliflozin propanediol 10 mg mg 11/25/24 Unknown History tablet (Farxiga) lisinopril 40 mg tablet mg 11/25/24 Unknown History metformin 500 mg tablet,extended mg PO 11/25/24 Unknown History release 24 hr metronidazole 0.75 % topical cream applic topical 11/25/24 Unknown History pantoprazole 40 mg tablet,delayed mg PO 11/25/24 Unknown History release sildenafil 50 mg tablet mg 11/25/24 Unknown History simvastatin 40 mg tablet mg 11/25/24 Unknown History sitagliptin phosphate 50 mg tablet mg 11/25/24 Unknown History (Januvia) tamsulosin 0.4 mg capsule mg PO 11/25/24 Unknown History testosterone 11/25/24 Unknown History Allergies Allergy/AdvReac Type Severity Reaction Status Date / Time No Known Allergies Allergy Verified 11/25/24 14:20 Exam Narrative: APPEARANCE: No apparent distress. Head: atraumatic. EYES: EOMI, NOSE: Atraumatic NECK: Trachea midline RESPIRATORY: No increased rate of breathing clear to auscultation CARDIOVASCULAR: RRR, no peripheral edema ABDOMINAL: Non-distended soft nontender bilateral CVA tenderness MUSCULOSKELETAl: No obvious deformities NEURO: Alert. Moving 4/4 extremities SKIN:: Warm, dry. Normal color PSYCHIATRIC: Normal affect Course Vital Signs Vital signs: Vital Signs Temperature 98.3 F 11/25/24 14:21 Pulse Rate 96 11/25/24 14:21 Respiratory Rate 16 11/25/24 14:21 Blood Pressure 163/89 H 11/25/24 14:21 Pulse Oximetry 98 11/25/24 14:21 Oxygen Delivery Room Air 11/25/24 14:21 Temperature 98.9 F 11/25/24 19:19 Pulse Rate 90 11/25/24 19:19 Respiratory Rate 18 11/25/24 19:19 Blood Pressure 161/87 H 11/25/24 19:19 Pulse Oximetry 98 11/25/24 19:19 Oxygen Delivery Room Air 11/25/24 15:12 Medical Decision Making MDM Narrative Medical decision making narrative: -Course: 74-year-old male presenting with urinary symptoms CVA tenderness. CT abdomen pelvis showed a significantly distended bladder and bilateral hydronephrosis. Urine indicative infection. Patient started on ceftriaxone and given fluid 2 L fluid bolus. He does not meet sepsis criteria at this time. Zuniga catheter was placed to facilitate drainage. Over 700cc immediate drainage on Zuniga placement. Patient states that he has a history of kidney injury although he cannot give me any specifics. Unclear if this is his baseline kidney function versus obstructive uropathy although his BUN:cr ratio favors post-renal. -DDX includes but is not limited to: UTI sepsis obstructive uropathy pneumonia bacteremia Vital Signs Vital Signs: Vital Signs Temperature 98.3 F 11/25/24 14:21 Pulse Rate 96 11/25/24 14:21 Respiratory Rate 16 11/25/24 14:21 Blood Pressure 163/89 H 11/25/24 14:21 Pulse Oximetry 98 11/25/24 14:21 Oxygen Delivery Room Air 11/25/24 14:21 Temperature 98.9 F 11/25/24 19:19 Pulse Rate 90 11/25/24 19:19 Respiratory Rate 18 11/25/24 19:19 Blood Pressure 161/87 H 11/25/24 19:19 Pulse Oximetry 98 11/25/24 19:19 Oxygen Delivery Room Air 11/25/24 15:12 Lab Data 11/25/24 16:00 11/25/24 16:00 Labs: Lab Results 11/25/24 11/25/24 Range/Units 15:54 16:00 WBC 11.9 H (4.5-10.0) K/mm3 RBC 5.15 (4.6-6.20) M/mm3 Hgb 15.0 (14.0-18.0) g/dL Hct 46.2 (42.0-52.0) % MCV 89.7 (80-100) fl MCH 29.1 (26-34) pg MCHC 32.5 (32-36) g/dl RDW 13.6 (11.5-14.5) % Plt Count 317 (150-375) k/mm3 MPV 9.7 (7.4-10.4) fl Immature Gran % (Auto) 0.3 (0-0.5) % Neut % (Auto) 72.6 (45.5-73.1) % Lymph % (Auto) 11.0 L (18.3-44.2) % [place] % (Auto) 12.5 H (2.6-8.5) % Eos % (Auto) 3.0 (0-4.4) % Baso % (Auto) 0.6 (0.2-1.2) % Lymph # (Auto) 1.30 (0.9-3.2) K/mm3 [place] # (Auto) 1.5 H (0.1-0.6) K/mm3 Eos # (Auto) 0.4 H (0-0.3) K/mm3 Baso # (Auto) 0.1 (0.0-0.1) K/mm3 Abs Immat Gran (auto) 0.03 (0.00-0.031) K/mm3 Absolute Neuts (auto) 8.6 H (1.3-6.7) K/mm3 Absolute Nucleated RBC 0.000 (0.0-0.012) K/mm3 Nucleated RBC % 0.0 (0.0-0.2) % Sodium 130 L (137-145) mmol/L Potassium 4.2 (3.4-5.0) mmol/L Chloride 95 L (98-107) mmol/L Carbon Dioxide 25 (22-30) mmol/L Anion Gap 10 (4-12) mmol/L BUN 34 H (9-20) mg/dL Creatinine 2.16 H (0.7-1.3) mg/dL Estim Creat Clear Calc 31 ml/min Estimated GFR 30 L (59 - ) Glucose 199 H (65-110) mg/dL Lactic Acid 1.0 (0.7-2.0) mmol/L Calcium 11.6 H (8.4-10.2) mg/dL Magnesium 2.2 (1.6-2.3) mg/dL Total Bilirubin 0.5 (0.2-1.3) mg/dL AST 38 (17-59) U/L ALT 37 (6-50) U/L Alkaline Phosphatase 101 (38-126) U/L Total Protein 8.9 H (6.3-8.2) g/dL Albumin 4.5 (3.5-5.1) g/dL Lipase 138 (23-300) U/L TSH (Reflex) 2.580 (0.465-4.68) uIU/mL Urine Color Yellow (Yellow) Urine Appearance Turbid H (Clear) Urine pH 6.0 (5.0-9.0) Ur Specific [place] 1.013 (1.001-1.035) Urine Protein 1+ H (Negative) mg/dL Urine Glucose (UA) 3+ H (Negative) mg/dL Urine Ketones Negative (Negative) mg/dL Ur Blood (Man) 2+ H (Negative) Urine Nitrate Negative (Negative) Urine Bilirubin Negative (Negative) Urine Urobilinogen 0.2 (<2.0) mg/dL Leukocyte Esterase Rfl 3+ H (Negative) ROYAL/UL Urine RBC 0-2 (0-2) /hpf Urine WBC >100 H (0-3) /hpf Ur Squamous Epith Cells Few (Few) /hpf Urine Bacteria None seen /hpf Urine Casts 0-2 Urine Opiates Screen Negative (Negative) Urine Methadone Screen Negative (Negative) Ur Barbiturates Screen Negative (Negative) Ur Phencyclidine Scrn Negative (Negative) Ur Amphetamine Screen Negative (Negative) U Benzodiazepines Scrn Negative (Negative) Urine Cocaine Screen Negative (Negative) U Cannabinoids Screen Negative (Negative) Ethyl Alcohol < 10 (<10) mg/dL Influenza A (RT-PCR) Negative (Negative) Influenza B (RT-PCR) Negative (Negative) RSV (RT-PCR) Negative (Negative) SARS-CoV-2 RNA (RT-PCR) Negative (Negative) Discharge Plan Discharge Clinical Impression: Acute UTI, Acute urinary retention Patient Disposition: Home Condition: Stable Instructions: Antibiotic Form Patient Language: Setswana Prescriptions: No Action sildenafil 50 mg tablet simvastatin 40 mg tablet tamsulosin 0.4 mg capsule PO pantoprazole 40 mg tablet,delayed release (DR/EC) PO metronidazole 0.75 % cream TOPICAL lisinopril 40 mg tablet metformin 500 mg tablet extended release 24 hr PO Januvia 50 mg tablet testosterone 20.25 mg/1.25 gram (1.62 %) gel in metered-dose pump dapagliflozin propanediol [Farxiga] 10 mg tablet Follow-up/Referrals: Debbie,Mateus Degroot MD [Primary Care Provider] -
--- OUTSIDE RECORDS SUMMARY | 2024-11-25 16:03 | XMS_ITS | Clinical Summary ---
Author Organization [facility] [[email or web address]] Address [address] [facility] [facility] [place] [address] Phone Care Team Providers Care Supervisor [employer] Name Role Phone Unavailable Primary Care Provider [...] Vaccine Age 50+ Completed 11/10/2019, 10/07/2018 Insurance [facility] OUT [facility] [address] [id number] MEDICARE [facility]
--- OUTSIDE RECORDS SUMMARY | 2024-11-25 16:03 | XMS_ITS | Encounter Summary ---
Author Organization [facility] Address [address] [place] [address] Care Team Providers Care Fine Dining Server Name Role Phone Unavailable Primary Care Provider Unavailabl e Encounter Details Date Type Department Care Team (Late st Contact Info) Description 08/07/2022 Lab Requisition [facility] DermPath Lab [address] [facility] [place] [id number] Matthieu Sapp MD [address] [place] [address] Social History Tobacco Use Types [...] AM CDT) Case Report Dermatopathology Report Case: [id number] Authorizing Provider: Matthieu Sapp MD Collected: 08/07/2022 12:00 AM Ordering Location: [facility] DermPath Lab Received: 08/07/2022 04:34 PM Pathologist: [...] of a curettage and desiccation biopsy measuring [id number]. Jar 0. Specimen B: Received is one formalin filled container labeled with the patient's name and designated anterior scalp. The specimen consists of a curettage and desiccation biopsy measuring [id number], 1f7z7rq and 2d9i3cp. Jar 0+. 3 12:13 PM CDT DERMATOPATHOLOGY [...] characteristic determined by the Dermatopathology Laboratory at [facility], directed by Dr. Carine Rebollar. These tests need not be, and therefore are not, approved by the [place] Food and Drug Administration. The tests are used for clinical purposes. Billing Codes Specimen Charges Stain Charges 41360 91587 1 1 77750 1 3 12:13 PM CDT DERMATOPATHOLOGY LABORATORY Embedded Images 3 12:13 PM CDT DERMATOPATHOLOGY LABORATORY Pathology/Cytology TISSUE SPECIMEN FROM SKIN / Unknown 08/07/2022 08/07/2022 4:34 PM CDT Miscellaneous samples (specimen) TISSUE SPECIMEN FROM SKIN / Unknown 08/07/2022 08/07/2022 4:34 PM CDT us Matthieu Sapp MD LAB - PATHOLOGY/CYTOLOGY ORDERAB LES Final Result DERMATOPATHOLOGY LABORATORY [facility] - Department of Dermatology [facility] Specialized Medicine [address] [place] [address], [address] [phone] documented in this encounter Visit Diagnoses Not on filedocumented in this encounter
--- OUTSIDE RECORDS SUMMARY | 2024-11-25 16:03 | XMS_ITS | Encounter Summary ---
Author Organization [facility] Address [address] [place] [address] Care Team Providers Care Dishwashing Machine Operator Name Role Phone Unavailable Primary Care Provider Unavailabl e Encounter Details Date Type Department Care Team (Late st Contact Info) Description 07/27/2022 Lab Requisition [facility] DermPath Lab [address] [place] [id number] Matthieu Sapp MD [address] [place] [address] Social History Tobacco Use Types [...] AM CDT) Case Report Dermatopathology Report Case: [id number] Authorizing Provider: Matthieu Sapp MD Collected: 07/25/2022 12:00 AM Ordering Location: [facility] DermPath Lab Received: 07/27/2022 05:54 AM Pathologist: [...] determined by the Dermatopathology Laboratory at [facility], directed by Dr. Carine Rebollar. These tests need not be, and therefore are not, approved by the [place] Food and Drug Administration. The tests are used for clinical purposes. Billing Codes Specimen Charges Stain Charges 08648 1 3 6:00 PM CDT DERMATOPATHOLOGY LABORATORY Embedded Images 3 6:00 PM CDT DERMATOPATHOLOGY LABORATORY Pathology/Cytolog y TISSUE SPECIMEN FROM SKIN / Unknown 07/25/2022 07/27/2022 5:54 AM CDT Matthieu Sapp MD LAB - PATHOLOGY/CYTOLOGY ORDERAB LES Final Result DERMATOPATHOLOGY LABORATORY [facility] - Department of Dermatology [address], [address] [phone] documented in this encounter Visit Diagnoses Not on filedocumented in this encounter
--- OUTSIDE RECORDS SUMMARY | 2024-11-25 16:03 | XMS_ITS | Clinical Summary ---
Author Organization [facility] Address [address] [place] [address] Care Team Providers Care Customer Trainer Name Role Phone Unavailable Primary Care Provider Unavailabl e Source Comments [facility],non-owned Affiliates and Associated Physician Practices is amultiple site organization consisting of ambulatory clinics and hospital sitesin [place], [place], [place] and [place]. This disclosure is being madepursuant to the Care Everywhere program and may not contain all information available regarding this patient. Last updated 18.[facility] [place] Social History Tobacco Use Types Packs/Day Years [...] age to complete this topic Insurance [facility] Address: [facility] [id number] [place] [id number]
--- OUTSIDE RECORDS SUMMARY | 2024-11-25 16:03 | XMS_ITS | Clinical Summary ---
Author Organization [facility] Address [address] [place] [address] Phone Care Team Providers Care Green Hide Inspector Name Role Phone Mateus Lewis MD Primary Care Provider [phone] Allergies No known active allergies Medications amLODIPine (NORVASC) 10 mg tablet Take 10 mg by mouth daily. 7 Active atorvastatin (LIPITOR) 40 mg tablet Take 40 mg by mouth late in the day. 7 Active azelastine (ASTELIN) 137 mcg/actuation nasal spray Administer 1 [place] in each nostril 1 time daily as [...] Comments Blood Pressure 133/71 04/09/2018 8:13 AM COTTON BAG SEWER Pulse 89 04/09/2018 8:13 AM COTTON BAG SEWER Temperature 37.2 C (98.9 F) 04/09/2018 8:13 AM COTTON BAG SEWER Respiratory Rate 16 04/09/2018 8:13 AM COTTON BAG SEWER Oxygen Saturation 93% 04/09/2018 8:13 AM COTTON BAG SEWER Inhaled Oxygen Concentration - - Weight 110.8 kg (244 lb 3.2 oz) 04/08/2018 5:41 AM COTTON BAG SEWER Height 177.8 cm (5' 10) 04/08/2018 5:41 AM COTTON BAG SEWER Body Mass Index 35.04 04/08/2018 5:41 AM COTTON BAG SEWER Plan of Treatment Health Maintenance Due Date Last Done Comments DTAP/TDAP/TD VACCINES (1 - Tdap) 08/11/1967 PNEUMOCOCCAL VACCINE 50+ YEARS (1 of 1 - PCV) 08/10/18 99 ZOSTER VACCINE (1 of 2) 1998 RSV VACCINE (60+ or ) (1 - 1-dose 75+ series) 08/11/2023 INFLUENZA VACCINE (#1) 2024 Medical Devices Implanted Type Area Service Tester Device Identifier Shelf Expiration Date Model / Serial / Lot Hemostatic Surgicel 2x14in 1952 - [id number] Implanted:Qty: 1 on 04/08/2018 by Franklin Casey MD at [facility] Hemostatic N/A: Neck [employer] 12/21/20211950 / / [id number] Insurance MEDICARE PART A AND B FOR LIFE BCBS BLUE ACCESS/TRUE BLUE PPO Advance Directives For more information, please contact: [phone] * Full Code (Latest Code Status on File) Date Activated Date Inactivated Comments 04/08/2018 10:18 AM 04/09/2018 4:04 PM * Full Code Date Activated Date Inactivated Comments 04/08/2018 5:47 AM 04/08/2018 10:18 AM Care Teams Green Hide Inspector Relationship Specialty Start Date End Date Mateus Lewis MD [address] [place] [id number] PCP - General Internal Medicine 03/19/18
--- OUTSIDE RECORDS SUMMARY | 2024-11-25 16:03 | XMS_ITS | Encounter Summary ---
Author Organization [facility] Address [address] [facility] [place] [address] Care Team Providers Care Delivery Clerk Name Role Phone Unavailable Primary Care Provider Unavailabl e Encounter Details Date Type Department Care Team (Late st Contact Info) Description 01/26/2020 Lab Requisition [facility] DermPath Lab [address] [place] [address] Matthieu Sapp MD [address] [place] [address] Social History Tobacco Use Types [...] AM CDT) Case Report Dermatopathology Report Case: [id number] Authorizing Provider: Matthieu Sapp MD Collected: 01/26/2020 12:00 AM Ordering Location: [facility] DermPath Lab Received: 01/26/2020 05:09 PM Pathologist: Yanna Rebollar MD Specimen: Slide(s), Left lower eyelid, [id number]# [id number] 0 4:19 PM CDT DERMATOPATHOLOGY LABORATORY Final Diagnosis Specimen A. Slide(s), Left lower eyelid, OSC# [id number]: ACTINIC KERATOSIS, ERODED (L57.0) BRISK PLASMACYTIC INFILTRATE (see microscopic description and comment) 0 4:19 PM CDT DERMATOPATHOLOGY LABORATORY at 1618 CDT Clinical History Materials received from: [facility] [address] [place] [id number] Received at the request of Dr. Matthieu Sapp, a consult will be performed on 1 (H&E) slide(s) labeled [id number]. Bx Date: 01/19/2020 BCC, SCC vs other neoplasm. All slides returned. Any additional sections, special stains or immunohistochemical stains performed by our laboratory will be kept here on file. 0 4:19 PM CDT DERMATOPATHOLOGY LABORATORY Microscopic Description Specimen A. Slide(s), Left lower eyelid, [id number]# [id number]: There is focal parakeratosis. The lower half [...] characteristic determined by the Dermatopathology Laboratory at [facility], directed by Dr. Carine Rebollar. These tests need not be, and therefore are not, approved by the [place] Food and Drug Administration. The tests are used for clinical purposes. Billing Codes Specimen Charges Stain Charges 16967 1 0 4:19 PM CDT DERMATOPATHOLOGY LABORATORY Embedded Images 0 4:19 PM CDT DERMATOPATHOLOGY LABORATORY Pathology/Cytolog y SLIDE / Unknown 01/26/2020 01/26/2020 5:09 PM CDT us Matthieu Sapp MD LAB - PATHOLOGY/CYTOLOGY ORDERAB LES Final Result DERMATOPATHOLOGY LABORATORY [facility] - Department of Dermatology [facility] Specialized Medicine [address] [place] [address], [address]rd [place] [address], [facility] [phone] documented in this encounter Visit Diagnoses Not on filedocumented in this encounter
--- NOTE | 2024-11-25 16:04 | ECG_ITS ---
Test Date: 2024-11-25 16:05:37 Measurements Intervals [place] Rate: 91 P: 27 MD: 165 QRS: -21 QRSD: 98 T: 51 QT: 333 QTc: 410 Interpretive Statements SINUS RHYTHM WITH FREQUENT VENTRICULAR PREMATURE COMPLEXES DELAYED PRECORDIAL R/S TRANSITION BASELINE ARTIFACT- I, II, III, AVR, AVL ABNORMAL ECG No previous ECG available for comparison Electronically Signed On 11-29-2024 07:42:03 CDT by Ethan Pruitt D.O.
[2024-11-25 16:09] LABS: Add Urine Microscopic? YES; Appearance Urine Turbid (Clear); Glucose Urine UA 3+ mg/dL (Negative); Leukocyte Esterase Ur 3+ LEU/UL (Negative); Nitrate Urine Negative (Negative); Non Pathogenic Casts 0-2; Specific Grav Ur 1.013 (1.001-1.035)
[2024-11-25 16:16] LABS: Hematocrit 46.2 % (42.0-52.0); Hemoglobin 15.0 g/dL (14.0-18.0); Immature Granulocyte Percent A 0.3 % (0-0.5); Lymphocytes Absolute Auto 1.30 K/mm3 (0.9-3.2); Mean Corpuscular HGB Conc 32.5 g/dl (32-36); Mean Corpuscular Hemoglobin 29.1 pg (26-34); Mean Corpuscular Volume 89.7 fl (80-100); Nucleated Red Blood Cells Absolute Auto 0.000 K/mm3 (0.0-0.012); Nucleated Red Blood Cells Perc 0.0 % (0.0-0.2); Platelet Count Result 317 k/mm3 (150-375); Red Blood Count 5.15 M/mm3 (4.6-6.20); White Blood Count 11.9 K/mm3 (4.5-10.0)
[2024-11-25 16:22] LABS: Alanine Aminotransferase 37 U/L (6-50); Albumin Level 4.5 g/dL (3.5-5.1); Alkaline Phosphatase 101 U/L (38-126); Anion Gap 10 mmol/L (4-12); Aspartate Amino Transferase 38 U/L (17-59); Bilirubin,Total 0.5 mg/dL (0.2-1.3); Blood Urea Nitrogen 34 mg/dL (9-20); Calcium 11.6 mg/dL (8.4-10.2); Carbon Dioxide 25 mmol/L (22-30); Chloride 95 mmol/L (98-107); Estimated CRCL calculation 31 ml/min; Estimated Glomerular Filt Rate 30; Glucose 199 mg/dL (65-110); Potassium 4.2 mmol/L (3.4-5.0); Sodium 130 mmol/L (137-145); Total Protein 8.9 g/dL (6.3-8.2)
[2024-11-25 16:47] LABS: Influenza A QL RT-PCR Negative (Negative); Influenza B QL RT-PCR Negative (Negative); RSV RNA, RT-PCR Negative (Negative); SARS-CoV-2 RNA PCR Negative (Negative)
[2024-11-25 16:55] LABS: Thyroid Stimulating Hormone Reflex 2.580 uIU/mL (0.465-4.68)
[2024-11-25 16:57] LABS: Lipase 138 U/L (23-300); Magnesium 2.2 mg/dL (1.6-2.3)
[2024-11-25 17:17] LABS: Cannabinoid Screen Urine Negative (Negative)
[2024-11-25] MEDS: cefTRIAXone 1 GM in SODIUM CHLORIDE 0.9% IV 50 ML 100 ML IVPB (19:47)
[2024-11-25] MEDS: LACTATED RINGERS 1,000 ML 999 ML IV CONT ×2 (19:48)
--- NOTE | 2024-11-25 22:10 | ADMGEN ---
This patient, Mark Mays, was admitted to Medical Room 343-01. Patient/family oriented to hospital policies and general routines including ID bracelet, bed and alarms, visiting hours, pain management, procedures, bathroom and other care routines, personal items, smoking policy, room service/diet, and visiting hours. Information on how to activate the Rapid Response Team has been discussed. Patient/Family are encouraged to report perceived risks to care and to ask questions if they do not understand what they are told or what they should do.
--- NOTE | 2024-11-25 22:55 | P.HP_ITS ---
H&P: HPI History of Present Illness Date/Time: 11/25/24 22:55 Chief Complaint: Fever and sore kidneys Narrative: 74-year-old male with a past medical history of type 2 diabetes mellitus, essential hypertension, GERD, BPH and chronic kidney disease who presented to the ER with complaints of fever and flank pain. Review of Systems 2 Review of Systems: 12 systems were reviewed with pertinent positives and negatives per HPI. Except as documented in the HPI, all other systems were reviewed and are negative. [facility] Past Medical History Medical History (Updated 11/25/24 @ 23:03 by Kaylee Hoffmann DO) Chronic kidney disease Social History Social History Smoking status: Never smoker Alcohol intake: current Drinks per week: 4 Substance use: never Lack of Transportation: No Lack of Food: Never True Current Housing: I Have Housing Concerned About Future Housing: No Difficulty Paying Gas/Electric Bills: No Difficulty Paying for Meds: No Currently Unemployed: No Education: Bachelor's Degree Difficulty w/ Childcare or Family Care: No Spiritual care concerns: No Meds Home Medications and Allergies Home Medications ?Medication ?Instructions ?Recorded ?Confirmed ?Type azelastine 137 mcg (0.1 %) nasal 1 spray intranasal Q12H 11/25/24 11/25/24 History spray dapagliflozin propanediol 10 mg 10 mg PO DAILY 11/25/24 11/25/24 History tablet (Farxiga) lisinopril 40 mg tablet 40 mg PO DAILY 11/25/24 11/25/24 History metformin 500 mg tablet,extended 500 mg PO DAILY 11/25/24 11/25/24 History release 24 hr metronidazole 0.75 % topical cream 1 applic topical DAILY 11/25/24 11/25/24 History pantoprazole 40 mg tablet,delayed 40 mg PO DAILY 11/25/24 11/25/24 History release simvastatin 40 mg tablet 40 mg PO DAILY 11/25/24 11/25/24 History sitagliptin phosphate 50 mg tablet 50 mg PO DAILY 11/25/24 11/25/24 History (Beba) tamsulosin 0.4 mg capsule 0.4 mg PO Q24H 11/25/24 11/25/24 History Allergies Allergy/AdvReac Type Severity Reaction Status Date / Time No Known Allergies Allergy Verified 11/25/24 14:20 Vital Signs Vital Signs - 24 hr 11/25/24 14:21 11/25/24 15:12 11/25/24 15:19 Temperature 98.3 F 98.8 F 98.8 F Pulse Rate 96 92 92 Respiratory Rate 16 17 17 Blood Pressure 163/89 H 183/99 H 179/92 H Pulse Oximetry 98 97 96 Oxygen Delivery Room Air Room Air 11/25/24 18:22 11/25/24 18:23 11/25/24 18:30 Temperature Pulse Rate 96 99 99 Respiratory Rate 22 H 18 22 H Blood Pressure 167/90 H Pulse Oximetry 95 100 94 Oxygen Delivery 11/25/24 18:31 11/25/24 18:45 11/25/24 19:00 Temperature Pulse Rate 95 93 93 Respiratory Rate 15 19 24 H Blood Pressure 147/82 H 168/92 H Pulse Oximetry 96 98 97 Oxygen Delivery 11/25/24 19:01 11/25/24 19:15 11/25/24 19:16 Temperature Pulse Rate 88 85 87 Respiratory Rate 23 H 14 18 Blood Pressure 161/87 H Pulse Oximetry 97 94 96 Oxygen Delivery 11/25/24 19:19 11/25/24 19:30 11/25/24 19:45 Temperature 98.9 F Pulse Rate 90 93 103 H Respiratory Rate 18 23 H 28 H Blood Pressure 161/87 H Pulse Oximetry 98 98 Oxygen Delivery 11/25/24 20:00 11/25/24 20:01 11/25/24 20:15 Temperature Pulse Rate 91 92 91 Respiratory Rate 26 H 27 H 27 H Blood Pressure 175/99 H Pulse Oximetry Oxygen Delivery 11/25/24 20:30 11/25/24 20:45 11/25/24 20:46 Temperature Pulse Rate 85 85 88 Respiratory Rate 29 H 21 H 18 Blood Pressure 151/77 H Pulse Oximetry Oxygen Delivery 11/25/24 20:55 11/25/24 21:00 11/25/24 21:15 Temperature 98.3 F Pulse Rate 88 90 98 Respiratory Rate 18 22 H 24 H Blood Pressure 151/77 H Pulse Oximetry 96 97 95 Oxygen Delivery 11/25/24 21:30 11/25/24 21:31 Temperature Pulse Rate 93 93 Respiratory Rate 24 H 22 H Blood Pressure 138/71 Pulse Oximetry 95 96 Oxygen Delivery Exam 2 Narrative: Weight 98.9 kg BMI 31.3 H&P: Results Labs Labs: Laboratory Tests 11/25/24 16:00 11/25/24 16:00 11/25/24 11/25/24 15:54 16:00 WBC 11.9 H RBC 5.15 Hgb 15.0 Hct 46.2 MCV 89.7 MCH 29.1 MCHC 32.5 RDW 13.6 Plt Count 317 MPV 9.7 Immature Gran % (Auto) 0.3 Neut % (Auto) 72.6 Lymph % (Auto) 11.[address] % (Auto) 12.5 H Eos % (Auto) 3.0 Baso % (Auto) 0.6 Lymph # (Auto) 1.30 [place] # (Auto) 1.5 H Eos # (Auto) 0.4 H Baso # (Auto) 0.1 Abs Immat Gran (auto) 0.03 Absolute Neuts (auto) 8.6 H Absolute Nucleated RBC 0.000 Nucleated RBC % 0.0 Sodium 130 L Potassium 4.2 Chloride 95 L Carbon Dioxide 25 Anion Gap 10 BUN 34 H Creatinine 2.16 H Estim Creat Clear Calc 31 Estimated GFR 30 L Glucose 199 H Lactic Acid 1.0 Calcium 11.6 H Magnesium 2.2 Total Bilirubin 0.5 AST 38 ALT 37 Alkaline Phosphatase 101 Total Protein 8.9 H Albumin 4.5 Lipase 138 TSH (Reflex) 2.580 Urine Color Yellow Urine Appearance Turbid H Urine pH 6.0 Ur Specific [place] 1.013 Urine Protein 1+ H Urine Glucose (UA) 3+ H Urine Ketones Negative Ur Blood (Man) 2+ H Urine Nitrate Negative Urine Bilirubin Negative Urine Urobilinogen 0.2 Leukocyte Esterase Rfl 3+ H Urine RBC 0-2 Urine WBC >100 H Ur Squamous Epith Cells Few Urine Bacteria None seen Urine Casts 0-2 Urine Opiates Screen Negative Urine Methadone Screen Negative Ur Barbiturates Screen Negative Ur Phencyclidine Scrn Negative Ur Amphetamine Screen Negative U Benzodiazepines Scrn Negative Urine Cocaine Screen Negative U Cannabinoids Screen Negative Ethyl Alcohol < 10 Influenza A (RT-PCR) Negative Influenza B (RT-PCR) Negative RSV (RT-PCR) Negative SARS-CoV-2 RNA (RT-PCR) Negative Impressions Chest X-Ray 11/25/24 16:43 IMPRESSION: Mild pulmonary vascular congestion, without focal infiltrate or effusion. Abdomen/Pelvis CT 11/25/24 17:30 IMPRESSION: Findings consistent with infection of the bladder with the bilateral ureteritis, and possible early pyelonephritis. Hepatomegaly. All imaging and EKGs personally reviewed and interpreted. And unless stated otherwise agree with radiologic and cardiology interpretation. Assessment and Plan Assessment and plan (1) Acute UTI: Code(s): N39.0 - Urinary tract infection, site not specified Status: Acute (2) Acute urinary retention: Code(s): R33.8 - Other retention of urine Status: Acute (3) Chronic kidney disease: Qualifiers: Chronic kidney disease stage: unspecified stage Qualified Code(s): N 18.9 - Chronic kidney disease, unspecified Code(s): N18.9 - Chronic kidney disease, unspecified Status: Acute
[2024-11-26] VITALS (8 sets, daily range): BP systolic 132–154; BP diastolic 73–82; PULSE 69–83; RESP 16–20; TEMP 36.5–36.8; O2SAT 91–98
[2024-11-26] MEDS: LACTATED RINGERS 1,000 ML 125 ML IV CONT (01:25)
--- NOTE | 2024-11-26 08:45 | PM.IMHP ---
H&P: HPI History of Present Illness Date/Time: 11/26/24 08:45 Chief Complaint: Urinary symptoms Narrative: Patient is a 74 yo male with PMH of CKD, T2DM, kidney stones, frequent UTIs, hypertension who presented to the ED with urinary symptoms and fever. Patient states issues with urinary retention and urinary tract infections for many years. Most recently started having symptoms 2-3 weeks ago. States he was seen by his primary care provider and was started on a PO antibiotic with little relief in his symptoms. Describes dysuria, urinary hesitancy, low back pain. Has had intermittent fevers at home. Denies associated nausea, vomiting, abdominal pain. Reports history of kidney stones s/p lithotripsy and stent placement 10 years ago. at bedside assists with history and admits that patient does not always follow-up as he is instructed. 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 In ED, CT A/P showed findings consistent with infection of the bladder with the bilateral ureteritis, and possible early pyelonephritis. Hepatomegaly. Multiple nonobstructive renal stones. CXR showed mild pulmonary vascular congestion. WBC 11.9, Na 130, BUN 34, Cr 2.16, GFR 30, glucose 199, calcium 11.6. UA with 1+ protein, 3+ glucose, 2+ blood, 3+ LE, >100 WBC. Bauer placed in ED. Received IV fluids and started on IV Rocephin with improvement in patient's symptoms. Patient admitted to medical floor for further evaluation and management. Review of Systems Review of Systems: All systems reviewed & are unremarkable except as noted in HPI and below PMFSH Past Medical History Medical History (Updated 11/26/24 @ 14:54 by TARI Gaming) HLD (hyperlipidemia) Hypertension T2DM (type 2 diabetes mellitus) Chronic kidney disease Surgical History Surgical History (Updated 11/26/24 @ 14:49 by TARI Gaming) H/O umbilical hernia repair History of placement of ureteral stent H/O lithotripsy Social History Social History Smoking status: Never smoker Alcohol intake: current Drinks per week: 4 Substance use: never Lack of Transportation: No Lack of Food: Never True Current Housing: I Have Housing Concerned About Future Housing: No Difficulty Paying Gas/Electric Bills: No Difficulty Paying for Meds: No Currently Unemployed: No Education: Bachelor's Degree Difficulty w/ Childcare or Family Care: No Spiritual care concerns: No Meds Home Medications and Allergies Home Medications ?Medication ?Instructions ?Recorded ?Confirmed ?Type azelastine 137 mcg (0.1 %) nasal 1 spray intranasal Q12H 11/25/24 11/25/24 History spray dapagliflozin propanediol 10 mg 10 mg PO DAILY 11/25/24 11/25/24 History tablet (Farxiga) lisinopril 40 mg tablet 40 mg PO DAILY 11/25/24 11/25/24 History metformin 500 mg tablet,extended 500 mg PO DAILY 11/25/24 11/25/24 History release 24 hr metronidazole 0.75 % topical cream 1 applic topical DAILY 11/25/24 11/25/24 History pantoprazole 40 mg tablet,delayed 40 mg PO DAILY 11/25/24 11/25/24 History release simvastatin 40 mg tablet 40 mg PO DAILY 11/25/24 11/25/24 History sitagliptin phosphate 50 mg tablet 50 mg PO DAILY 11/25/24 11/25/24 History (Januvia) tamsulosin 0.4 mg capsule 0.4 mg PO Q24H 11/25/24 11/25/24 History Allergies Allergy/AdvReac Type Severity Reaction Status Date / Time No Known Allergies Allergy Verified 11/25/24 14:20 Vital Signs Vital Signs - 24 hr 11/25/24 14:21 11/25/24 15:12 11/25/24 15:19 Temperature 98.3 F 98.8 F 98.8 F Pulse Rate 96 92 92 Respiratory Rate 16 17 17 Blood Pressure 163/89 H 183/99 H 179/92 H Pulse Oximetry 98 97 96 Oxygen Delivery Room Air Room Air 11/25/24 18:22 11/25/24 18:23 11/25/24 18:30 Temperature Pulse Rate 96 99 99 Respiratory Rate 22 H 18 22 H Blood Pressure 167/90 H Pulse Oximetry 95 100 94 Oxygen Delivery 11/25/24 18:31 11/25/24 18:45 11/25/24 19:00 Temperature Pulse Rate 95 93 93 Respiratory Rate 15 19 24 H Blood Pressure 147/82 H 168/92 H Pulse Oximetry 96 98 97 Oxygen Delivery 11/25/24 19:01 11/25/24 19:15 11/25/24 19:16 Temperature Pulse Rate 88 85 87 Respiratory Rate 23 H 14 18 Blood Pressure 161/87 H Pulse Oximetry 97 94 96 Oxygen Delivery 11/25/24 19:19 11/25/24 19:30 11/25/24 19:45 Temperature 98.9 F Pulse Rate 90 93 103 H Respiratory Rate 18 23 H 28 H Blood Pressure 161/87 H Pulse Oximetry 98 98 Oxygen Delivery 11/25/24 20:00 11/25/24 20:01 11/25/24 20:15 Temperature Pulse Rate 91 92 91 Respiratory Rate 26 H 27 H 27 H Blood Pressure 175/99 H Pulse Oximetry Oxygen Delivery 11/25/24 20:30 11/25/24 20:45 11/25/24 20:46 Temperature Pulse Rate 85 85 88 Respiratory Rate 29 H 21 H 18 Blood Pressure 151/77 H Pulse Oximetry Oxygen Delivery 11/25/24 20:55 11/25/24 21:00 11/25/24 21:15 Temperature 98.3 F Pulse Rate 88 90 98 Respiratory Rate 18 22 H 24 H Blood Pressure 151/77 H Pulse Oximetry 96 97 95 Oxygen Delivery 11/25/24 21:30 11/25/24 21:31 11/26/24 00:55 Temperature 98.2 F Pulse Rate 93 93 77 Respiratory Rate 24 H 22 H 18 Blood Pressure 138/71 154/78 H Pulse Oximetry 95 96 98 Oxygen Delivery 11/26/24 06:00 Temperature 97.7 F Pulse Rate 73 Respiratory Rate 18 Blood Pressure 142/81 H Pulse Oximetry 97 Oxygen Delivery Exam Narrative: General: NAD, obese Eyes: EOMI ENT: neck supple Cardiovascular: Regular rate and rhythm Respiratory: Clear to auscultation, respirations even and unlabored on RA Gastrointestinal: Soft, non tender Genitourinary: no suprapubic tenderness, bauer catheter draining cloudy urine Musculoskeletal: No edema Skin: warm, dry Neuro: Alert. Psych: Mood appropriate H&P: Results Labs Labs: Short CBC 11/25/24 Range/Units 16:00 WBC 11.9 H (4.5-10.0) K/mm3 Hgb 15.0 (14.0-18.0) g/dL Hct 46.2 (42.0-52.0) % Plt Count 317 (150-375) k/mm3 BMP 11/25/24 16:00 Sodium 130 L Potassium 4.2 Chloride 95 L Carbon Dioxide 25 BUN 34 H Creatinine 2.16 H Glucose 199 H Calcium 11.6 H Liver Function 11/25/24 Range/Units 16:00 Total Bilirubin 0.5 (0.2-1.3) mg/dL AST 38 (17-59) U/L ALT 37 (6-50) U/L Alkaline Phosphatase 101 (38-126) U/L Albumin 4.5 (3.5-5.1) g/dL Urine 11/25/24 Range/Units 15:54 Urine Color Yellow (Yellow) Urine Appearance Turbid H (Clear) Urine pH 6.0 (5.0-9.0) Ur Specific [place] 1.013 (1.001-1.035) Urine Protein 1+ H (Negative) mg/dL Urine Glucose (UA) 3+ H (Negative) mg/dL Assessment and Plan Assessment and plan (1) Acute UTI: Code(s): N39.0 - Urinary tract infection, site not specified Status: Acute Assessment and Plan: - UA with 1+ protein, 3+ glucose, 2+ blood, 3+ LE, >100 WBC - WBC 11.9. Afebrile. HDS. LA 1.0. -symptomatic with dysuria, urinary hesitancy, urinary retention. History of recurrent UTIs. -continue IV Rocephin, await urine culture, blood cultures (2) Acute urinary retention: Code(s): R33.8 - Other retention of urine Status: Acute Assessment and Plan: -s/p Bauer placement ED -CT A/P with hydroureter - continue Flomax -urology consult, appreciate recs (3) Acute kidney injury superimposed on CKD: Code(s): N17.9 - Acute kidney failure, unspecified; N18.9 - Chronic kidney disease, unspecified Status: Acute Assessment and Plan: - admit Cr 2.16, unclear baseline, but patient reports history of CKD - suspect multifactorial in setting of dehydration, urinary retention - improved with bauer placement and IV fluids - hold lisinopril - avoid nephrotoxins - daily BMP (4) Hypercalcemia: Code(s): E83.52 - Hypercalcemia Status: Acute Assessment and Plan: - initial calcium 11.6 - likely due to dehydration and calcium supplements - improved with IV fluids - instructed to stop calcium supplements - PTH, vit D pending (5) Hypertension: Code(s): I10 - Essential (primary) hypertension Status: Acute Assessment and Plan: - hold home lisinopril due to EPHRAIM - montior BP trend (6) T2DM (type 2 diabetes mellitus): Code(s): E11.9 - Type 2 diabetes mellitus without complications Status: Acute Assessment and Plan: - hold home metformin, Farxiga, Januvia - low dose SSI - monitor POCT glucose - check Hgb A1c (7) HLD (hyperlipidemia): Code(s): E78.5 - Hyperlipidemia, unspecified Status: Acute Assessment and Plan: - continue home statin Plan CODE STATUS- full code, confirmed on admit. Quality VTE Prophylaxis VTE prophylaxis: pharmacologic ordered Hospitalist MIPS Advance Care Plan I have confirmed that the patient's Advanced Care Plan is present, code status is documented, or surrogate decision maker is listed in patient medical record.: Yes Medication Reconciliation I have utilized all available resources to obtain, update and review the patients current medications (includes all prescriptions, OTC, herbals, cannabis, and nutritional supplements).: Yes The patient is not eligible for med reconciliation; the patient is in a emergent medical situation where delaying treatment would jeopardize the patients health.: No
[2024-11-26 10:06] LABS: Alanine Aminotransferase 29 U/L (6-50); Albumin Level 3.5 g/dL (3.5-5.1); Alkaline Phosphatase 83 U/L (38-126); Anion Gap 8 mmol/L (4-12); Aspartate Amino Transferase 28 U/L (17-59); Bilirubin,Total 0.4 mg/dL (0.2-1.3); Blood Urea Nitrogen 27 mg/dL (9-20); Calcium 10.4 mg/dL (8.4-10.2); Carbon Dioxide 25 mmol/L (22-30); Chloride 101 mmol/L (98-107); Estimated CRCL calculation 40 ml/min; Estimated Glomerular Filt Rate 40; Glucose 279 mg/dL (65-110); Potassium 4.2 mmol/L (3.4-5.0); Sodium 134 mmol/L (137-145); Total Protein 6.6 g/dL (6.3-8.2)
[2024-11-26] MEDS: TAMSULOSIN HCL 0.4 MG CAPSULE PO ×2 (13:06→17:35)
[2024-11-26] MEDS: INSULIN ASPART (*BKC) 100 UNITS/ML SUB-Q ×2 (13:07→17:35)
--- NOTE | 2024-11-26 13:43 | WPDURCON ---
Assessment and Plan Assessment and plan (1) Acute urinary retention: Code(s): R33.8 - Other retention of urine Status: Acute (2) Acute UTI: Code(s): N39.0 - Urinary tract infection, site not specified Status: Acute Plan 74-year-old man with urinary tract infection, acute renal insufficiency, bilateral hydroureteronephrosis, urinary retention -- continue Zuniga catheter for now, consider void trial prior to discharge -- increase tamsulosin from daily to b.i.d. -- continue IV antibiotics. Await urine culture results. -- Creatinine improving. Continue to follow. Plan repeat imaging with renal ultrasound to ensure improvement of hydronephrosis with Zuniga catheter prior to discharge. -- We will plan follow up as scheduled for outpatient cystoscopy and transrectal ultrasound on 12/10/24 Urology Consult Note HPI Date Seen: 11/26/24 Requesting Physician: Kaylee Hoffmann DO Primary Care Provider: Mateus Lewis, Consult Narrative Narrative: Mark Mays is a 74 year old male is a known patient to [facility] with a history of urinary symptoms. The patient was last seen in the office for appointment in October where he complained of worsening frequency and urgency. patient is currently scheduled for cystoscopy at the end of November to workup potential urologic interventions. The patient presented to the emergency department last night due to fever, blood testing showed a acute renal insufficiency and CT scan showed findings suspicious for urinary tract infection with ascending pyelitis and bilateral hydroureteronephrosis. Zuniga Catheter was subsequently placed in ED. [facility]LY [facility] Past Medical History Medical History (Updated 11/25/24 @ 23:03 by Kaylee Hoffmann DO) Chronic kidney disease Social History Social History Smoking status: Never smoker Alcohol intake: current Drinks per week: 4 Substance use: never Lack of Transportation: No Lack of Food: Never True Current Housing: I Have Housing Concerned About Future Housing: No Difficulty Paying Gas/Electric Bills: No Difficulty Paying for Meds: No Currently Unemployed: No Education: Bachelor's Degree Difficulty w/ Childcare or Family Care: No Spiritual care concerns: No Meds Home Medications and Allergies Home Medications ?Medication ?Instructions ?Recorded ?Confirmed ?Type azelastine 137 mcg (0.1 %) nasal 1 spray intranasal Q12H 11/25/24 11/25/24 History spray dapagliflozin propanediol 10 mg 10 mg PO DAILY 11/25/24 11/25/24 History tablet (Farxiga) lisinopril 40 mg tablet 40 mg PO DAILY 11/25/24 11/25/24 History metformin 500 mg tablet,extended 500 mg PO DAILY 11/25/24 11/25/24 History release 24 hr metronidazole 0.75 % topical cream 1 applic topical DAILY 11/25/24 11/25/24 History pantoprazole 40 mg tablet,delayed 40 mg PO DAILY 11/25/24 11/25/24 History release simvastatin 40 mg tablet 40 mg PO DAILY 11/25/24 11/25/24 History sitagliptin phosphate 50 mg tablet 50 mg PO DAILY 11/25/24 11/25/24 History (Beba) tamsulosin 0.4 mg capsule 0.4 mg PO Q24H 11/25/24 11/25/24 History Allergies Allergy/AdvReac Type Severity Reaction Status Date / Time No Known Allergies Allergy Verified 11/25/24 14:20 Vital Signs Vital Signs - 24 hr 11/25/24 14:21 11/25/24 15:12 11/25/24 15:19 Temperature 36.8 C 37.1 C 37.1 C Pulse Rate 96 92 92 Respiratory Rate 16 17 17 Blood Pressure 163/89 H 183/99 H 179/92 H Pulse Oximetry 98 97 96 Oxygen Delivery Room Air Room Air 11/25/24 18:22 11/25/24 18:23 11/25/24 18:30 Temperature Pulse Rate 96 99 99 Respiratory Rate 22 H 18 22 H Blood Pressure 167/90 H Pulse Oximetry 95 100 94 Oxygen Delivery 11/25/24 18:31 11/25/24 18:45 11/25/24 19:00 Temperature Pulse Rate 95 93 93 Respiratory Rate 15 19 24 H Blood Pressure 147/82 H 168/92 H Pulse Oximetry 96 98 97 Oxygen Delivery 11/25/24 19:01 11/25/24 19:15 11/25/24 19:16 Temperature Pulse Rate 88 85 87 Respiratory Rate 23 H 14 18 Blood Pressure 161/87 H Pulse Oximetry 97 94 96 Oxygen Delivery 11/25/24 19:19 11/25/24 19:30 11/25/24 19:45 Temperature 37.2 C Pulse Rate 90 93 103 H Respiratory Rate 18 23 H 28 H Blood Pressure 161/87 H Pulse Oximetry 98 98 Oxygen Delivery 11/25/24 20:00 11/25/24 20:01 11/25/24 20:15 Temperature Pulse Rate 91 92 91 Respiratory Rate 26 H 27 H 27 H Blood Pressure 175/99 H Pulse Oximetry Oxygen Delivery 11/25/24 20:30 11/25/24 20:45 11/25/24 20:46 Temperature Pulse Rate 85 85 88 Respiratory Rate 29 H 21 H 18 Blood Pressure 151/77 H Pulse Oximetry Oxygen Delivery 11/25/24 20:55 11/25/24 21:00 11/25/24 21:15 Temperature 36.8 C Pulse Rate 88 90 98 Respiratory Rate 18 22 H 24 H Blood Pressure 151/77 H Pulse Oximetry 96 97 95 Oxygen Delivery 11/25/24 21:30 11/25/24 21:31 11/26/24 00:55 Temperature 36.8 C Pulse Rate 93 93 77 Respiratory Rate 24 H 22 H 18 Blood Pressure 138/71 154/78 H Pulse Oximetry 95 96 98 Oxygen Delivery 11/26/24 06:00 11/26/24 08:00 11/26/24 08:00 Temperature 36.5 C 36.8 C Pulse Rate 73 69 Respiratory Rate 18 18 Blood Pressure 142/81 H 132/82 Pulse Oximetry 97 93 Oxygen Delivery Room Air 11/26/24 10:00 Temperature Pulse Rate Respiratory Rate Blood Pressure Pulse Oximetry 96 Oxygen Delivery Room Air Exam Narrative: patient is awake and alert. His abdomen is soft nontender nondistended. He has a Zuniga catheter in place that is draining clear urine. Results Labs 11/25/24 16:00 11/26/24 09:20 Labs: Short CBC 11/25/24 Range/Units 16:00 WBC 11.9 H (4.5-10.0) K/mm3 Hgb 15.0 (14.0-18.0) g/dL Hct 46.2 (42.0-52.0) % Plt Count 317 (150-375) k/mm3 BMP 11/25/24 11/26/24 16:00 09:20 Sodium 130 L 134 L Potassium 4.2 4.2 Chloride 95 L 101 Carbon Dioxide 25 25 BUN 34 H 27 H Creatinine 2.16 H 1.68 H Glucose 199 H 279 H Calcium 11.6 H 10.4 H Liver Function 11/25/24 11/26/24 Range/Units 16:00 09:20 Total Bilirubin 0.5 0.4 (0.2-1.3) mg/dL AST 38 28 (17-59) U/L ALT 37 29 (6-50) U/L Alkaline Phosphatase 101 83 (38-126) U/L Albumin 4.5 3.5 (3.5-5.1) g/dL Urine 11/25/24 Range/Units 15:54 Urine Color Yellow (Yellow) Urine Appearance Turbid H (Clear) Urine pH 6.0 (5.0-9.0) Ur Specific [place] 1.013 (1.001-1.035) Urine Protein 1+ H (Negative) mg/dL Urine Glucose (UA) 3+ H (Negative) mg/dL Imaging Radiologist's impression: Ordering Physician: Boby Grider MD Date of Service: 11/25/24 Procedure(s): CT abdomen pelvis w con Accession Number(s): [id number] cc: Debbie, Mateus Degroot MD; Boby Grider MD~ CLINICAL INDICATION: Abdominal distention and fever COMPARISON: None. TECHNIQUE: Multiple contiguous axial images of the abdomen and pelvis were performed following the administration of with 100 mL Omnipaque-350 intravenous contrast The dose-length product (DLP) was 946.31 mGy-cm. Automated exposure control and iterative reconstruction technique were employed. FINDINGS/OBSERVATIONS: Visualized lower thorax: The bilateral lung bases are clear. The heart is of normal size, without pericardial effusion. Liver: The liver demonstrates homogeneous enhancement and is markedly enlarged measuring 24 cm in longitudinal dimension. Gallbladder and biliary system: The gallbladder is only minimally distended, and otherwise unremarkable. Pancreas: The pancreas enhances homogeneously without ductal dilatation. Spleen: The spleen enhances homogeneously and is not enlarged. Kidneys: Multiple stones are identified within the bilateral kidneys. Within the upper pole of the left kidney is a 12.5 mm calculus. Within the interpolar region of the left kidney is a 14 mm calculus. Within the lower pole of the left kidney is a 12 mm calculus. Within the lower pole of the right kidney is 8 mm calculus. Within the lower pole of the right kidney is a 5.5 mm calculus. Within the lower pole of the right kidney is a 6 mm calculus. Within the upper pole of the right kidney is a 8.4 mm calculus. A rim calcified focus of decreased attenuation is identified exophytic from the upper pole of the right kidney, too small to characterize. Bilateral hydroureteronephrosis, left greater than right, is identified with wall enhancement of the bilateral ureters. No discrete obstructing stone is appreciated. Adrenal glands: Unremarkable. Gastrointestinal tract: Colonic diverticulosis without surrounding inflammatory change. Appendix: The appendix is not definitively visualized. However, no pericecal inflammatory change is identified suggest the presence of acute appendicitis. Vasculature: Calcified atherosclerotic disease. Lymph nodes: No pathologically enlarged or morphologically suspicious lymph nodes within the retroperitoneum or at the root of the mesentery. Pelvic structures: The bladder is distended, and demonstrates significantly thickened [place] with surrounding inflammatory change, findings consistent with cystitis. The prostate gland is enlarged, demonstrating both bulky calcifications and inflammatory change. Body wall and musculoskeletal: Age appropriate degenerative disease within the lower thoracic and lumbosacral spines. IMPRESSION: Findings consistent with infection of the bladder with the bilateral ureteritis, and possible early pyelonephritis. Hepatomegaly. Reviewed, dictated and finalized at location A.
[2024-11-26] MEDS: cefTRIAXone 1 GM in SODIUM CHLORIDE 0.9% IV 50 ML 100 ML IVPB (20:57)
[2024-11-27 04:06] VITALS: BP 132/55; PULSE 78; RESP 16; TEMP 36.6; O2SAT 95
[2024-11-27 05:46] LABS: Hematocrit 40.4 % (42.0-52.0); Hemoglobin 13.4 g/dL (14.0-18.0); Immature Granulocyte Percent A 0.4 % (0-0.5); Lymphocytes Absolute Auto 1.29 K/mm3 (0.9-3.2); Mean Corpuscular HGB Conc 33.2 g/dl (32-36); Mean Corpuscular Hemoglobin 29.8 pg (26-34); Mean Corpuscular Volume 89.8 fl (80-100); Nucleated Red Blood Cells Absolute Auto 0.000 K/mm3 (0.0-0.012); Nucleated Red Blood Cells Perc 0.0 % (0.0-0.2); Platelet Count Result 266 k/mm3 (150-375); Red Blood Count 4.50 M/mm3 (4.6-6.20); White Blood Count 7.9 K/mm3 (4.5-10.0)
[2024-11-27 05:59] LABS: Anion Gap 10 mmol/L (4-12); Blood Urea Nitrogen 27 mg/dL (9-20); Calcium 10.0 mg/dL (8.4-10.2); Carbon Dioxide 24 mmol/L (22-30); Chloride 100 mmol/L (98-107); Estimated CRCL calculation 41 ml/min; Estimated Glomerular Filt Rate 42; Glucose 181 mg/dL (65-110); Potassium 3.9 mmol/L (3.4-5.0); Sodium 134 mmol/L (137-145)
[2024-11-27 06:03] LABS: Hemoglobin A1C 7.6 % (<5.7)
--- NOTE | 2024-11-27 06:54 | P.PNUR_ITS ---
Progress Note: A&P Assessment and Plan (1) Acute urinary retention: Code(s): R33.8 - Other retention of urine Status: Acute (2) Acute UTI: Code(s): N39.0 - Urinary tract infection, site not specified Status: Acute Assessment and Plan: * Await cultures and renal u/s * Serum creat. improved today * Possible voiding trial tomorrow am Subjective Subjective Date/Time Seen: 11/27/24 06:54 Interval history: Comfortable, tolerating cathter Review of Systems Review of Systems: All systems reviewed & are unremarkable except as noted in HPI and below Exam Const: General: no acute distress Resp: Effort & Inspection: normal respiratory effort GI: Inspection: non-distended GI Palp: No abdominal tenderness and No Guarding due to palpation present (GI) Auscultation: normal bowel sounds Objective Data Vital Signs Vital Signs: Vital Signs - 24 hr 11/26/24 08:00 11/26/24 08:00 11/26/24 10:00 Temperature 98.3 F Pulse Rate 69 Respiratory Rate 18 Blood Pressure 132/82 Pulse Oximetry 93 96 Oxygen Delivery Room Air Room Air Fraction of Inspired Oxygen 11/26/24 12:00 11/26/24 16:00 11/26/24 20:00 Temperature 98.3 F 97.9 F Pulse Rate 82 83 Respiratory Rate 18 16 Blood Pressure 142/75 H 149/73 H Pulse Oximetry 95 95 Oxygen Delivery Room Air Fraction of Inspired Oxygen 11/26/24 20:25 11/26/24 20:38 11/27/24 04:06 Temperature 98 F 97.8 F Pulse Rate 73 83 78 Respiratory Rate 20 18 16 Blood Pressure 135/74 132/55 L Pulse Oximetry 91 98 95 Oxygen Delivery Room Air Fraction of Inspired Oxygen 21 Intake/Output Intake/Output: Intake & Output 11/24/24 11/25/24 11/26/24 11/27/24 23:59 23:59 23:59 23:59 Intake Total 2050 3500 1650 Output Total 900 3600 2650 Balance 1150 -100 -1000 Meds/Results Medications: Active Medications Generic Name Dose Route Start Last Admin Trade Name Freq PRN Reason Stop Dose Admin Dextrose 12.5 gm 11/26/24 11:15 Dextrose 50% 25 Gm/50 Ml Syringe IV PUSH PRN PRN Hypoglycemia Protocol Enoxaparin Sodium 40 mg 11/27/24 09:00 Enoxaparin 40 Mg/0.4 Ml Syringe SUB-Q DAILY LISA Glucagon 1 mg 11/26/24 11:15 Glucagon For Inj 1 Mg Vial IM PRN PRN Hypoglycemia Protocol Glucose 15 gm 11/26/24 11:15 Glucose Oral Gel 15 Gm Of Glucse In 37.5 Gm Tube PO PRN PRN Hypoglycemia Protocol Ceftriaxone Sodium 1 gm/ 50 mls @ 100 mls/hr 11/26/24 20:00 11/26/24 20:57 Sodium Chloride IVPB 100 mls/hr Q24H LISA Administration Dextrose 1,000 mls @ 100 mls/hr 11/26/24 11:15 Dextrose 5% 1,000 Ml IVPB PRN PRN Hypoglycemia Protocol Insulin Aspart 2 - 5 units 11/26/24 12:00 11/26/24 17:35 Insulin Aspart (*Bkc) 100 Units/Ml SUB-Q 2 units TIDWM LISA Administration Protocol Insulin Aspart 1 - 2 units 11/26/24 21:00 11/26/24 21:00 Insulin Aspart (*Bkc) 100 Units/Ml SUB-Q Not Given HS LISA Protocol Pantoprazole Sodium 40 mg 11/27/24 09:00 Pantoprazole 40 Mg Tablet PO DAILY LISA Simvastatin 40 mg 11/27/24 09:00 Simvastatin 20 Mg Tablet PO DAILY [facility] Tamsulosin HCl 0.4 mg 11/26/24 17:00 11/26/24 17:35 Tamsulosin Hcl 0.4 Mg Capsule PO 0.4 mg BID LISA Administration Radiology Results: ITS Impressions Chest X-Ray 11/25/24 16:43 IMPRESSION: Mild pulmonary vascular congestion, without focal infiltrate or effusion. Abdomen/Pelvis CT 11/25/24 17:30 IMPRESSION: Findings consistent with infection of the bladder with the bilateral ureteritis, and possible early pyelonephritis. Hepatomegaly. Labs Labs: Laboratory Results - last 24 hr 11/25/24 11/26/24 11/26/24 22:55 08:13 09:20 WBC RBC Hgb Hct MCV MCH MCHC RDW Plt Count MPV Immature Gran % (Auto) Neut % (Auto) Lymph % (Auto) [place] % (Auto) Eos % (Auto) Baso % (Auto) Lymph # (Auto) [place] # (Auto) Eos # (Auto) Baso # (Auto) Abs Immat Gran (auto) Absolute Neuts (auto) Absolute Nucleated RBC Nucleated RBC % Sodium 134 L Potassium 4.2 Chloride 101 Carbon Dioxide 25 Anion Gap 8 BUN 27 H Creatinine 1.68 H Estim Creat Clear Calc 40 Estimated GFR 40 L Glucose 279 H POC Capillary Glucose 307 H 172 H Hemoglobin A1c Calcium 10.4 H Total Bilirubin 0.4 AST 28 ALT 29 Alkaline Phosphatase 83 Total Protein 6.6 Albumin 3.5 Vitamin D 25-Hydroxy > 126.0 11/26/24 11/26/24 11/26/24 11:46 17:08 20:43 WBC RBC Hgb Hct MCV MCH MCHC RDW Plt Count MPV Immature Gran % (Auto) Neut % (Auto) Lymph % (Auto) [place] % (Auto) Eos % (Auto) Baso % (Auto) Lymph # (Auto) [place] # (Auto) Eos # (Auto) Baso # (Auto) Abs Immat Gran (auto) Absolute Neuts (auto) Absolute Nucleated RBC Nucleated RBC % Sodium Potassium Chloride Carbon Dioxide Anion Gap BUN Creatinine Estim Creat Clear Calc Estimated GFR Glucose POC Capillary Glucose 223 H 213 H 199 H Hemoglobin A1c Calcium Total Bilirubin AST ALT Alkaline Phosphatase Total Protein Albumin Vitamin D 25-Hydroxy 11/27/24 05:26 WBC 7.9 RBC 4.50 L Hgb 13.4 L Hct 40.4 L MCV 89.8 MCH 29.8 MCHC 33.2 RDW 13.6 Plt Count 266 MPV 9.7 Immature Gran % (Auto) 0.4 Neut % (Auto) 64.1 Lymph % (Auto) 16.3 L [place] % (Auto) 11.2 H Eos % (Auto) 7.4 H Baso % (Auto) 0.6 Lymph # (Auto) 1.29 [place] # (Auto) 0.9 H Eos # (Auto) 0.6 H Baso # (Auto) 0.1 Abs Immat Gran (auto) 0.03 Absolute Neuts (auto) 5.1 Absolute Nucleated RBC 0.000 Nucleated RBC % 0.0 Sodium 134 L Potassium 3.9 Chloride 100 Carbon Dioxide 24 Anion Gap 10 BUN 27 H Creatinine 1.62 H Estim Creat Clear Calc 41 Estimated GFR 42 L Glucose 181 H POC Capillary Glucose Hemoglobin A1c 7.6 H Calcium 10.0 Total Bilirubin AST ALT Alkaline Phosphatase Total Protein Albumin Vitamin D 25-Hydroxy
--- NOTE | 2024-11-27 07:49 | PM.IMPN ---
Progress Note: A&P Assessment and Plan (1) Acute UTI: Code(s): N39.0 - Urinary tract infection, site not specified Status: Acute Assessment and Plan: - UA with 1+ protein, 3+ glucose, 2+ blood, 3+ LE, >100 WBC - WBC 11.9. Afebrile. HDS. LA 1.0. -symptomatic with dysuria, urinary hesitancy, urinary retention. History of recurrent UTIs. - urine culture with gram negative bacilli. Await speciation and sensitivities. -continue IV Rocephin (2) Acute urinary retention: Code(s): R33.8 - Other retention of urine Status: Acute Assessment and Plan: -s/p Bauer placement ED -CT A/P with hydroureter - continue Flomax -urology consulted, planning to continue bauer catheter with possible voiding trial tomorrow, repeat renal US (3) Acute kidney injury superimposed on CKD: Code(s): N17.9 - Acute kidney failure, unspecified; N18.9 - Chronic kidney disease, unspecified Status: Acute Assessment and Plan: - admit Cr 2.16, unclear baseline, but patient reports history of CKD - suspect multifactorial in setting of dehydration, urinary retention - improved with bauer placement and IV fluids - hold lisinopril - avoid nephrotoxins - daily BMP (4) Hypercalcemia: Code(s): E83.52 - Hypercalcemia Status: Acute Assessment and Plan: - initial calcium 11.6 - likely due to dehydration and calcium supplements - improved with IV fluids - instructed to stop calcium supplements - patient reports possible history of partial parathyroid removal in the past? - PTH pending (5) Hypertension: Code(s): I10 - Essential (primary) hypertension Status: Acute Assessment and Plan: - hold home lisinopril due to HARINI - monitor BP trend (6) T2DM (type 2 diabetes mellitus): Code(s): E11.9 - Type 2 diabetes mellitus without complications Status: Acute Assessment and Plan: - hold home metformin, Farxiga, Januvia. May consider stopping Farxiga in setting of frequent UTIs. - hemoglobin A1c 7.4 - moderate dose SSI. Start lantus 10u qHS - monitor POCT glucose (7) HLD (hyperlipidemia): Code(s): E78.5 - Hyperlipidemia, unspecified Status: Acute Assessment and Plan: - continue home statin Plan CODE STATUS- full code, confirmed on admit. Subjective Date/time seen: 11/27/24 07:49 Interval history: Patient seen and examined up in chair. Feeling better today. Discussed plan of care with patient and patient's at bedside. Review of Systems Review of Systems: 12 systems were reviewed with pertinent positives and negatives per HPI. Exam Narrative: General: NAD, obese Eyes: EOMI ENT: neck supple Cardiovascular: Regular rate and rhythm Respiratory: Clear to auscultation, respirations even and unlabored on RA Gastrointestinal: Soft, non tender Genitourinary: no suprapubic tenderness, bauer catheter draining cloudy urine Musculoskeletal: No edema Skin: warm, dry Neuro: Alert. Psych: Mood appropriate Objective Data Vital Signs Vital Signs: Vital Signs - 24 hr 11/26/24 08:00 11/26/24 08:00 11/26/24 10:00 Temperature 98.3 F Pulse Rate 69 Respiratory Rate 18 Blood Pressure 132/82 Pulse Oximetry 93 96 Oxygen Delivery Room Air Room Air Fraction of Inspired Oxygen 11/26/24 12:00 11/26/24 16:00 11/26/24 20:00 Temperature 98.3 F 97.9 F Pulse Rate 82 83 Respiratory Rate 18 16 Blood Pressure 142/75 H 149/73 H Pulse Oximetry 95 95 Oxygen Delivery Room Air Fraction of Inspired Oxygen 11/26/24 20:25 11/26/24 20:38 11/27/24 04:06 Temperature 98 F 97.8 F Pulse Rate 73 83 78 Respiratory Rate 20 18 16 Blood Pressure 135/74 132/55 L Pulse Oximetry 91 98 95 Oxygen Delivery Room Air Fraction of Inspired Oxygen 21 Intake/Output Intake/Output: Intake & Output 11/24/24 11/25/24 11/26/24 11/27/24 23:59 23:59 23:59 23:59 Intake Total 2050 3500 1650 Output Total 900 3600 2650 Balance 1150 -100 -1000 Meds/Results Medications: Active Medications Generic Name Dose Route Start Last Admin Trade Name Freq PRN Reason Stop Dose Admin Dextrose 12.5 gm 11/26/24 11:15 Dextrose 50% 25 Gm/50 Ml Syringe IV PUSH PRN PRN Hypoglycemia Protocol Enoxaparin Sodium 40 mg 11/27/24 09:00 Enoxaparin 40 Mg/0.4 Ml Syringe SUB-Q DAILY LISA Glucagon 1 mg 11/26/24 11:15 Glucagon For Inj 1 Mg Vial IM PRN PRN Hypoglycemia Protocol Glucose 15 gm 11/26/24 11:15 Glucose Oral Gel 15 Gm Of Glucse In 37.5 Gm Tube PO PRN PRN Hypoglycemia Protocol Ceftriaxone Sodium 1 gm/ 50 mls @ 100 mls/hr 11/26/24 20:00 11/26/24 20:57 Sodium Chloride IVPB 100 mls/hr Q24H LISA Administration Dextrose 1,000 mls @ 100 mls/hr 11/26/24 11:15 Dextrose 5% 1,000 Ml IVPB PRN PRN Hypoglycemia Protocol Insulin Aspart 2 - 5 units 11/26/24 12:00 11/26/24 17:35 Insulin Aspart (*Bkc) 100 Units/Ml SUB-Q 2 units TIDWM LISA Administration Protocol Insulin Aspart 1 - 2 units 11/26/24 21:00 11/26/24 21:00 Insulin Aspart (*Bkc) 100 Units/Ml SUB-Q Not Given HS LISA Protocol Pantoprazole Sodium 40 mg 11/27/24 09:00 Pantoprazole 40 Mg Tablet PO DAILY LISA Simvastatin 40 mg 11/27/24 09:00 Simvastatin 20 Mg Tablet PO DAILY LISA Tamsulosin HCl 0.4 mg 11/26/24 17:00 11/26/24 17:35 Tamsulosin Hcl 0.4 Mg Capsule PO 0.4 mg BID LISA Administration Radiology Results: ITS Impressions Chest X-Ray 11/25/24 16:43 IMPRESSION: Mild pulmonary vascular congestion, without focal infiltrate or effusion. Abdomen/Pelvis CT 11/25/24 17:30 IMPRESSION: Findings consistent with infection of the bladder with the bilateral ureteritis, and possible early pyelonephritis. Hepatomegaly. Labs Labs: Laboratory Results - last 24 hr 11/25/24 11/26/24 11/26/24 22:55 08:13 09:20 WBC RBC Hgb Hct MCV MCH MCHC RDW Plt Count MPV Immature Gran % (Auto) Neut % (Auto) Lymph % (Auto) [place] % (Auto) Eos % (Auto) Baso % (Auto) Lymph # (Auto) [place] # (Auto) Eos # (Auto) Baso # (Auto) Abs Immat Gran (auto) Absolute Neuts (auto) Absolute Nucleated RBC Nucleated RBC % Sodium 134 L Potassium 4.2 Chloride 101 Carbon Dioxide 25 Anion Gap 8 BUN 27 H Creatinine 1.68 H Estim Creat Clear Calc 40 Estimated GFR 40 L Glucose 279 H POC Capillary Glucose 307 H 172 H Hemoglobin A1c Calcium 10.4 H Total Bilirubin 0.4 AST 28 ALT 29 Alkaline Phosphatase 83 Total Protein 6.6 Albumin 3.5 Vitamin D 25-Hydroxy > 126.0 11/26/24 11/26/24 11/26/24 11:46 17:08 20:43 WBC RBC Hgb Hct MCV MCH MCHC RDW Plt Count MPV Immature Gran % (Auto) Neut % (Auto) Lymph % (Auto) [place] % (Auto) Eos % (Auto) Baso % (Auto) Lymph # (Auto) [place] # (Auto) Eos # (Auto) Baso # (Auto) Abs Immat Gran (auto) Absolute Neuts (auto) Absolute Nucleated RBC Nucleated RBC % Sodium Potassium Chloride Carbon Dioxide Anion Gap BUN Creatinine Estim Creat Clear Calc Estimated GFR Glucose POC Capillary Glucose 223 H 213 H 199 H Hemoglobin A1c Calcium Total Bilirubin AST ALT Alkaline Phosphatase Total Protein Albumin Vitamin D 25-Hydroxy 11/27/24 05:26 WBC 7.9 RBC 4.50 L Hgb 13.4 L Hct 40.4 L MCV 89.8 MCH 29.8 MCHC 33.2 RDW 13.6 Plt Count 266 MPV 9.7 Immature Gran % (Auto) 0.4 Neut % (Auto) 64.1 Lymph % (Auto) 16.3 L [place] % (Auto) 11.2 H Eos % (Auto) 7.4 H Baso % (Auto) 0.6 Lymph # (Auto) 1.29 [place] # (Auto) 0.9 H Eos # (Auto) 0.6 H Baso # (Auto) 0.1 Abs Immat Gran (auto) 0.03 Absolute Neuts (auto) 5.1 Absolute Nucleated RBC 0.000 Nucleated RBC % 0.0 Sodium 134 L Potassium 3.9 Chloride 100 Carbon Dioxide 24 Anion Gap 10 BUN 27 H Creatinine 1.62 H Estim Creat Clear Calc 41 Estimated GFR 42 L Glucose 181 H POC Capillary Glucose Hemoglobin A1c 7.6 H Calcium 10.0 Total Bilirubin AST ALT Alkaline Phosphatase Total Protein Albumin Vitamin D 25-Hydroxy Quality VTE Prophylaxis VTE prophylaxis: pharmacologic ordered
[2024-11-27] MEDS: PANTOPRAZOLE 40 MG TABLET PO (08:30)
[2024-11-27] MEDS: ENOXAPARIN 40 MG/0.4 ML SYRINGE SUB-Q (08:30)
[2024-11-27] MEDS: SIMVASTATIN 20 MG TABLET 40 MG PO (08:30)
[2024-11-27] MEDS: TAMSULOSIN HCL 0.4 MG CAPSULE PO ×2 (08:30→17:21)
[2024-11-27] MEDS: INSULIN ASPART (*BKC) 100 UNITS/ML SUB-Q (12:57)
[2024-11-27 14:00] VITALS: BP 132/76; PULSE 86; RESP 16; TEMP 36.3; O2SAT 95
[2024-11-27 18:08] LABS: Calcium, Ionized 5.8 mg/dL (4.5-5.6)
[2024-11-27 20:00] VITALS: BP 141/74; PULSE 78; RESP 20; TEMP 36.7; O2SAT 99
[2024-11-27] MEDS: INSULIN GLARGINE (*BKC) 100 UNITS/ML 10 UNITS SUB-Q (21:52)
[2024-11-27] MEDS: cefTRIAXone 1 GM in SODIUM CHLORIDE 0.9% IV 50 ML 100 ML IVPB (21:55)
[2024-11-28 00:45] VITALS: BP 156/66; PULSE 78; RESP 20; TEMP 36.6; O2SAT 100
[2024-11-28 06:00] VITALS: BP 142/74; PULSE 79; RESP 18; TEMP 36.6; O2SAT 97
[2024-11-28 06:00] LABS: Hematocrit 41.0 % (42.0-52.0); Hemoglobin 13.0 g/dL (14.0-18.0); Immature Granulocyte Percent A 0.3 % (0-0.5); Lymphocytes Absolute Auto 1.30 K/mm3 (0.9-3.2); Mean Corpuscular HGB Conc 31.7 g/dl (32-36); Mean Corpuscular Hemoglobin 28.9 pg (26-34); Mean Corpuscular Volume 91.1 fl (80-100); Nucleated Red Blood Cells Absolute Auto 0.000 K/mm3 (0.0-0.012); Nucleated Red Blood Cells Perc 0.0 % (0.0-0.2); Platelet Count Result 271 k/mm3 (150-375); Red Blood Count 4.50 M/mm3 (4.6-6.20); White Blood Count 7.5 K/mm3 (4.5-10.0)
[2024-11-28 06:45] LABS: Anion Gap 10 mmol/L (4-12); Blood Urea Nitrogen 27 mg/dL (9-20); Calcium 9.6 mg/dL (8.4-10.2); Carbon Dioxide 23 mmol/L (22-30); Chloride 101 mmol/L (98-107); Estimated CRCL calculation 42 ml/min; Estimated Glomerular Filt Rate 43; Glucose 165 mg/dL (65-110); Potassium 3.6 mmol/L (3.4-5.0); Sodium 134 mmol/L (137-145)
[2024-11-28] MEDS: TAMSULOSIN HCL 0.4 MG CAPSULE PO ×2 (09:21→17:14)
[2024-11-28] MEDS: SIMVASTATIN 20 MG TABLET 40 MG PO (09:21)
[2024-11-28] MEDS: ENOXAPARIN 40 MG/0.4 ML SYRINGE SUB-Q (09:22)
[2024-11-28] MEDS: PANTOPRAZOLE 40 MG TABLET PO (09:22)
[2024-11-28] MEDS: WATER FOR IRRIGATION, STERILE 1,000 ML BOTTLE 1000 ML (09:23)
[2024-11-28 10:00] VITALS: O2SAT 97
--- NOTE | 2024-11-28 10:48 | P.PNIM_ITS ---
Progress Note: A&P Assessment and Plan (1) Acute UTI: Code(s): N39.0 - Urinary tract infection, site not specified Status: Acute Assessment and Plan: - UA with 1+ protein, 3+ glucose, 2+ blood, 3+ LE, >100 WBC - WBC 11.9. Afebrile. HDS. LA 1.0. -symptomatic with dysuria, urinary hesitancy, urinary retention. History of recurrent UTIs. - urine culture with gram negative bacilli. Await speciation and sensitivities. -continue IV Rocephin (2) Acute urinary retention: Code(s): R33.8 - Other retention of urine Status: Acute Assessment and Plan: -s/p Bauer placement ED -CT A/P with hydroureter - continue Flomax -urology consulted, planning to continue bauer catheter with possible voiding trial tomorrow, repeat renal US (3) Hydronephrosis: Code(s): N13.30 - Unspecified hydronephrosis Status: Acute Assessment and Plan: - in setting of above - renal US 11/28 showed persistent bilateral hydronephrosis - continue bauer - urology following (4) Acute kidney injury superimposed on CKD: Code(s): N17.9 - Acute kidney failure, unspecified; N18.9 - Chronic kidney disease, unspecified Status: Acute Assessment and Plan: - admit Cr 2.16, unclear baseline, but patient reports history of CKD - suspect multifactorial in setting of dehydration, urinary retention with hydronephrosis - improved with bauer placement and IV fluids - hold lisinopril - avoid nephrotoxins - daily BMP (5) Hypercalcemia: Code(s): E83.52 - Hypercalcemia Status: Acute Assessment and Plan: - initial calcium 11.6 - likely due to dehydration and calcium supplements - improved with IV fluids - instructed to stop calcium supplements - patient reports possible history of partial parathyroid removal in the past? - PTH pending (6) Hypertension: Code(s): I10 - Essential (primary) hypertension Status: Acute Assessment and Plan: - hold home lisinopril due to HARINI - monitor BP trend (7) T2DM (type 2 diabetes mellitus): Code(s): E11.9 - Type 2 diabetes mellitus without complications Status: Acute Assessment and Plan: - hold home metformin, Farxiga, Januvia. May consider stopping Farxiga in setting of frequent UTIs. - hemoglobin A1c 7.4 - moderate dose SSI. Start lantus 10u qHS - monitor POCT glucose (8) HLD (hyperlipidemia): Code(s): E78.5 - Hyperlipidemia, unspecified Status: Acute Assessment and Plan: - continue home statin (9) Constipation: Code(s): K59.00 - Constipation, unspecified Status: Acute Assessment and Plan: - started bowel regimen Plan CODE STATUS- full code, confirmed on admit. Subjective Date/time seen: 11/28/24 10:48 Interval history: Patient seen and examined at bedside. Resting comfortably. No acute events overnight. at bedside. Patient denies any acute concerns and is overall feeling better. Exam Narrative: General: NAD, obese Eyes: EOMI ENT: neck supple Cardiovascular: Regular rate and rhythm Respiratory: Clear to auscultation, respirations even and unlabored on RA Gastrointestinal: Soft, non tender Genitourinary: no suprapubic tenderness, bauer catheter draining clear urine Musculoskeletal: No edema Skin: warm, dry Neuro: Alert. Psych: Mood appropriate Objective Data Vital Signs Vital Signs: Vital Signs - 24 hr 11/27/24 14:00 11/27/24 20:00 11/28/24 00:45 Temperature 97.3 F L 98.1 F 97.8 F Pulse Rate 86 78 78 Respiratory Rate 16 20 20 Blood Pressure 132/76 141/74 H 156/66 H Pulse Oximetry 95 99 100 11/28/24 06:00 Temperature 97.9 F Pulse Rate 79 Respiratory Rate 18 Blood Pressure 142/74 H Pulse Oximetry 97 Intake/Output Intake/Output: Intake & Output 11/25/24 11/26/24 11/27/24 11/28/24 23:59 23:59 23:59 23:59 Intake Total 2054 3551 2778 480 Output Total 900 3600 5903 800 Balance 1150 -50 -3213 -320 Meds/Results Medications: Active Medications Generic Name Dose Route Start Last Admin Trade Name Freq PRN Reason Stop Dose Admin Dextrose 12.5 gm 11/26/24 11:15 Dextrose 50% 25 Gm/50 Ml Syringe IV PUSH PRN PRN Hypoglycemia Protocol Enoxaparin Sodium 40 mg 11/27/24 09:00 11/28/24 09:22 Enoxaparin 40 Mg/0.4 Ml Syringe SUB-Q 40 mg DAILY LISA Administration Glucagon 1 mg 11/26/24 11:15 Glucagon For Inj 1 Mg Vial IM PRN PRN Hypoglycemia Protocol Glucose 15 gm 11/26/24 11:15 Glucose Oral Gel 15 Gm Of Glucse In 37.5 Gm Tube PO PRN PRN Hypoglycemia Protocol Ceftriaxone Sodium 1 gm/ 50 mls @ 100 mls/hr 11/26/24 20:00 11/27/24 22:25 Sodium Chloride IVPB Infused Q24H LISA Infusion Dextrose 1,000 mls @ 100 mls/hr 11/26/24 11:15 Dextrose 5% 1,000 Ml IVPB PRN PRN Hypoglycemia Protocol Insulin Aspart 1 - 3 units 11/27/24 21:00 11/27/24 21:54 Insulin Aspart (*Bkc) 100 Units/Ml SUB-Q Not Given HS [facility] Protocol Insulin Aspart 3 - 6 units 11/27/24 08:00 11/28/24 09:21 Insulin Aspart (*Bkc) 100 Units/Ml SUB-Q Not Given TIDWM [facility] Protocol Insulin Glargine 10 units 11/27/24 21:00 11/27/24 21:52 Insulin Glargine (*Bkc) 100 Units/Ml SUB-Q 10 units HS LISA Administration Pantoprazole Sodium 40 mg 11/27/24 09:00 11/28/24 09:22 Pantoprazole 40 Mg Tablet PO 40 mg DAILY LISA Administration Polyethylene Glycol 17 gm 11/28/24 10:00 Polyethylene Glycol 3350 17 Gm Powd.Pack PO QAM LISA Simvastatin 40 mg 11/27/24 09:00 11/28/24 09:21 Simvastatin 20 Mg Tablet PO 40 mg DAILY LISA Administration Tamsulosin HCl 0.4 mg 11/26/24 17:00 11/28/24 09:21 Tamsulosin Hcl 0.4 Mg Capsule PO 0.4 mg BID LISA Administration Radiology Results: ITS Impressions Chest X-Ray 11/25/24 16:43 IMPRESSION: Mild pulmonary vascular congestion, without focal infiltrate or effusion. Abdomen/Pelvis CT 11/25/24 17:30 IMPRESSION: Findings consistent with infection of the bladder with the bilateral ureteritis, and possible early pyelonephritis. Hepatomegaly. Renal Ultrasound 11/28/24 08:35 Impression: 1: Bilateral echogenic foci, suspicious for renal stones. 2: Bilateral hydronephrosis, right greater than left. Labs Labs: Laboratory Results - last 24 hr 11/26/24 11/27/24 11/27/24 09:20 11:47 16:53 WBC RBC Hgb Hct MCV MCH MCHC RDW Plt Count MPV Immature Gran % (Auto) Neut % (Auto) Lymph % (Auto) [place] % (Auto) Eos % (Auto) Baso % (Auto) Lymph # (Auto) [place] # (Auto) Eos # (Auto) Baso # (Auto) Abs Immat Gran (auto) Absolute Neuts (auto) Absolute Nucleated RBC Nucleated RBC % Sodium Potassium Chloride Carbon Dioxide Anion Gap BUN Creatinine Estim Creat Clear Calc Estimated GFR Glucose POC Capillary Glucose 300 H 156 H Calcium Ionized Calcium 5.8 H 11/27/24 11/28/24 11/28/24 20:48 05:29 08:39 WBC 7.5 RBC 4.50 L Hgb 13.0 L Hct 41.0 L MCV 91.1 MCH 28.9 MCHC 31.7 L RDW 13.7 Plt Count 271 MPV 9.6 Immature Gran % (Auto) 0.3 Neut % (Auto) 61.5 Lymph % (Auto) 17.4 L [place] % (Auto) 11.5 H Eos % (Auto) 8.1 H Baso % (Auto) 1.2 Lymph # (Auto) 1.30 [place] # (Auto) 0.9 H Eos # (Auto) 0.6 H Baso # (Auto) 0.1 Abs Immat Gran (auto) 0.02 Absolute Neuts (auto) 4.6 Absolute Nucleated RBC 0.000 Nucleated RBC % 0.0 Sodium 134 L Potassium 3.6 Chloride 101 Carbon Dioxide 23 Anion Gap 10 BUN 27 H Creatinine 1.58 H Estim Creat Clear Calc 42 Estimated GFR 43 L Glucose 165 H POC Capillary Glucose 181 H 164 H Calcium 9.6 Ionized Calcium
--- NOTE | 2024-11-28 11:44 | WPDUROPN2 ---
Progress Note: A&P Assessment and Plan (1) Acute urinary retention: Code(s): R33.8 - Other retention of urine Status: Acute (2) Acute UTI: Code(s): N39.0 - Urinary tract infection, site not specified Status: Acute Assessment and Plan: Await cultures and renal u/s Serum creat. improved today Possible voiding trial tomorrow am 11/28/24 Catheter out for voiding trial today Home +/- catheter this weekend once cultures complete Subjective Subjective Date/Time Seen: 11/28/24 11:44 Interval history: Comfortable, NAEO Review of Systems Review of Systems: All systems reviewed & are unremarkable except as noted in HPI and below Exam Const: General: no acute distress Resp: Effort & Inspection: normal respiratory effort GI: Inspection: non-distended GI Palp: No abdominal tenderness and No Guarding due to palpation present (GI) Auscultation: normal bowel sounds Objective Data Vital Signs Vital Signs: Vital Signs - 24 hr 11/27/24 14:00 11/27/24 20:00 11/28/24 00:45 Temperature 97.3 F L 98.1 F 97.8 F Pulse Rate 86 78 78 Respiratory Rate 16 20 20 Blood Pressure 132/76 141/74 H 156/66 H Pulse Oximetry 95 99 100 11/28/24 06:00 Temperature 97.9 F Pulse Rate 79 Respiratory Rate 18 Blood Pressure 142/74 H Pulse Oximetry 97 Intake/Output Intake/Output: Intake & Output 11/25/24 11/26/24 11/27/24 11/28/24 23:59 23:59 23:59 23:59 Intake Total 2050 3550 2772 480 Output Total 900 5590 5931 800 Balance 1150 -50 -3213 -320 Meds/Results Medications: Active Medications Generic Name Dose Route Start Last Admin Trade Name Freq PRN Reason Stop Dose Admin Dextrose 12.5 gm 11/26/24 11:15 Dextrose 50% 25 Gm/50 Ml Syringe IV PUSH PRN PRN Hypoglycemia Protocol Enoxaparin Sodium 40 mg 11/27/24 09:00 11/28/24 09:22 Enoxaparin 40 Mg/0.4 Ml Syringe SUB-Q 40 mg DAILY LISA Administration Glucagon 1 mg 11/26/24 11:15 Glucagon For Inj 1 Mg Vial IM PRN PRN Hypoglycemia Protocol Glucose 15 gm 11/26/24 11:15 Glucose Oral Gel 15 Gm Of Glucse In 37.5 Gm Tube PO PRN PRN Hypoglycemia Protocol Ceftriaxone Sodium 1 gm/ 50 mls @ 100 mls/hr 11/26/24 20:00 11/27/24 22:25 Sodium Chloride IVPB Infused Q24H LISA Infusion Dextrose 1,000 mls @ 100 mls/hr 11/26/24 11:15 Dextrose 5% 1,000 Ml IVPB PRN PRN Hypoglycemia Protocol Insulin Aspart 1 - 3 units 11/27/24 21:00 11/27/24 21:54 Insulin Aspart (*Bkc) 100 Units/Ml SUB-Q Not Given HS LISA Protocol Insulin Aspart 3 - 6 units 11/27/24 08:00 11/28/24 09:21 Insulin Aspart (*Bkc) 100 Units/Ml SUB-Q Not Given TIDWM [facility] Protocol Insulin Glargine 10 units 11/27/24 21:00 11/27/24 21:52 Insulin Glargine (*Bkc) 100 Units/Ml SUB-Q 10 units HS LISA Administration Pantoprazole Sodium 40 mg 11/27/24 09:00 11/28/24 09:22 Pantoprazole 40 Mg Tablet PO 40 mg DAILY LISA Administration Polyethylene Glycol 17 gm 11/28/24 10:00 Polyethylene Glycol 3350 17 Gm Powd.Pack PO QAM LISA Simvastatin 40 mg 11/27/24 09:00 11/28/24 09:21 Simvastatin 20 Mg Tablet PO 40 mg DAILY LISA Administration Tamsulosin HCl 0.4 mg 11/26/24 17:00 11/28/24 09:21 Tamsulosin Hcl 0.4 Mg Capsule PO 0.4 mg BID LISA Administration Radiology Results: ITS Impressions Chest X-Ray 11/25/24 16:43 IMPRESSION: Mild pulmonary vascular congestion, without focal infiltrate or effusion. Abdomen/Pelvis CT 11/25/24 17:30 IMPRESSION: Findings consistent with infection of the bladder with the bilateral ureteritis, and possible early pyelonephritis. Hepatomegaly. Renal Ultrasound 11/28/24 08:35 Impression: 1: Bilateral echogenic foci, suspicious for renal stones. 2: Bilateral hydronephrosis, right greater than left. Labs Labs: Laboratory Results - last 24 hr 11/26/24 11/27/24 11/27/24 09:20 11:47 16:53 WBC RBC Hgb Hct MCV MCH MCHC RDW Plt Count MPV Immature Gran % (Auto) Neut % (Auto) Lymph % (Auto) [place] % (Auto) Eos % (Auto) Baso % (Auto) Lymph # (Auto) [place] # (Auto) Eos # (Auto) Baso # (Auto) Abs Immat Gran (auto) Absolute Neuts (auto) Absolute Nucleated RBC Nucleated RBC % Sodium Potassium Chloride Carbon Dioxide Anion Gap BUN Creatinine Estim Creat Clear Calc Estimated GFR Glucose POC Capillary Glucose 300 H 156 H Calcium Ionized Calcium 5.8 H 11/27/24 11/28/24 11/28/24 20:48 05:29 08:39 WBC 7.5 RBC 4.50 L Hgb 13.0 L Hct 41.0 L MCV 91.1 MCH 28.9 MCHC 31.7 L RDW 13.7 Plt Count 271 MPV 9.6 Immature Gran % (Auto) 0.3 Neut % (Auto) 61.5 Lymph % (Auto) 17.4 L [place] % (Auto) 11.5 H Eos % (Auto) 8.1 H Baso % (Auto) 1.2 Lymph # (Auto) 1.30 [place] # (Auto) 0.9 H Eos # (Auto) 0.6 H Baso # (Auto) 0.1 Abs Immat Gran (auto) 0.02 Absolute Neuts (auto) 4.6 Absolute Nucleated RBC 0.000 Nucleated RBC % 0.0 Sodium 134 L Potassium 3.6 Chloride 101 Carbon Dioxide 23 Anion Gap 10 BUN 27 H Creatinine 1.58 H Estim Creat Clear Calc 42 Estimated GFR 43 L Glucose 165 H POC Capillary Glucose 181 H 164 H Calcium 9.6 Ionized Calcium
[2024-11-28 14:00] VITALS: BP 156/77; PULSE 75; RESP 18; TEMP 36.7; O2SAT 98
[2024-11-28 18:08] LABS: Calcium, Ionized 5.7 mg/dL (4.5-5.6)
[2024-11-28] MEDS: cefTRIAXone 1 GM in SODIUM CHLORIDE 0.9% IV 50 ML 100 ML IVPB (21:22)
[2024-11-28] MEDS: INSULIN GLARGINE (*BKC) 100 UNITS/ML 10 UNITS SUB-Q (21:24)
[2024-11-28 22:17] VITALS: BP 129/78; PULSE 88; RESP 20; TEMP 36.7; O2SAT 99
[2024-11-29 05:59] LABS: Hematocrit 41.1 % (42.0-52.0); Hemoglobin 13.6 g/dL (14.0-18.0); Immature Granulocyte Percent A 0.5 % (0-0.5); Lymphocytes Absolute Auto 1.42 K/mm3 (0.9-3.2); Mean Corpuscular HGB Conc 33.1 g/dl (32-36); Mean Corpuscular Hemoglobin 29.2 pg (26-34); Mean Corpuscular Volume 88.4 fl (80-100); Nucleated Red Blood Cells Absolute Auto 0.000 K/mm3 (0.0-0.012); Nucleated Red Blood Cells Perc 0.0 % (0.0-0.2); Platelet Count Result 304 k/mm3 (150-375); Red Blood Count 4.65 M/mm3 (4.6-6.20); White Blood Count 10.7 K/mm3 (4.5-10.0)
[2024-11-29 06:00] VITALS: BP 157/86; PULSE 78; RESP 18; TEMP 36.6; O2SAT 97
[2024-11-29 06:21] LABS: Anion Gap 11 mmol/L (4-12); Blood Urea Nitrogen 28 mg/dL (9-20); Calcium 9.8 mg/dL (8.4-10.2); Carbon Dioxide 25 mmol/L (22-30); Chloride 94 mmol/L (98-107); Estimated CRCL calculation 40 ml/min; Estimated Glomerular Filt Rate 40; Glucose 154 mg/dL (65-110); Potassium 3.8 mmol/L (3.4-5.0); Sodium 130 mmol/L (137-145)
[2024-11-29] MEDS: TAMSULOSIN HCL 0.4 MG CAPSULE PO ×2 (09:35→17:36)
[2024-11-29] MEDS: SIMVASTATIN 20 MG TABLET 40 MG PO (09:35)
[2024-11-29] MEDS: ENOXAPARIN 40 MG/0.4 ML SYRINGE SUB-Q (09:35)
[2024-11-29] MEDS: PANTOPRAZOLE 40 MG TABLET PO (09:35)
--- NOTE | 2024-11-29 10:45 | P.PNIM_ITS ---
Progress Note: A&P Assessment and Plan (1) Acute UTI: Code(s): N39.0 - Urinary tract infection, site not specified Status: Acute Assessment and Plan: - UA with 1+ protein, 3+ glucose, 2+ blood, 3+ LE, >100 WBC - CT A/P with cystitis/ureteritis and possibly early pyelonephritis - WBC 11.9. Afebrile. HDS. LA 1.0. -symptomatic with dysuria, urinary hesitancy, urinary retention. History of recurrent UTIs. - urine culture with Proteus vulgaris, sensitive to cephalosporins and fluoroquinolones - stop Rocephin and transition to PO Levaquin given concern for pyelo on admit (2) Acute urinary retention: Code(s): R33.8 - Other retention of urine Status: Acute Assessment and Plan: -s/p Bauer placement ED -CT A/P with hydroureter - repeat renal US showed persistent hydronephrosis - continue Flomax -urology consulted, recommended voiding trial. Bauer d/maryanne 11/28. PVR this AM 200cc. Continue to monitor for signs of urinary retention. (3) Hydronephrosis: Code(s): N13.30 - Unspecified hydronephrosis Status: Acute Assessment and Plan: - in setting of above - renal US 11/28 showed persistent bilateral hydronephrosis - urology following (4) Acute kidney injury superimposed on CKD: Code(s): N17.9 - Acute kidney failure, unspecified; N18.9 - Chronic kidney disease, unspecified Status: Acute Assessment and Plan: - admit Cr 2.16, unclear baseline, but patient reports history of CKD - suspect multifactorial in setting of dehydration, urinary retention with hydronephrosis - improved with bauer placement and IV fluids. Cr trended up slightly today. - hold lisinopril - avoid nephrotoxins - daily BMP (5) Hypercalcemia: Code(s): E83.52 - Hypercalcemia Status: Acute Assessment and Plan: - initial calcium 11.6 - likely due to dehydration and calcium supplements - improved with IV fluids - instructed to stop calcium supplements - patient reports possible history of partial parathyroid removal in the past? - PTH pending (6) Hypertension: Code(s): I10 - Essential (primary) hypertension Status: Acute Assessment and Plan: - hold home lisinopril due to HARINI - monitor BP trend (7) Hyponatremia: Code(s): E87.1 - Hypo-osmolality and hyponatremia Status: Acute Assessment and Plan: - Na 131 corrected for hyperglycemia - patient has had poor PO intact, improving today. Appears euvolemic so will hold off on further IV fluids. - monitor BMP (8) T2DM (type 2 diabetes mellitus): Code(s): E11.9 - Type 2 diabetes mellitus without complications Status: Acute Assessment and Plan: - hold home metformin, Farxiga, Januvia. May consider stopping Farxiga in setting of frequent UTIs. - hemoglobin A1c 7.4 - moderate dose SSI. Continue lantus 10u qHS - monitor POCT glucose (9) HLD (hyperlipidemia): Code(s): E78.5 - Hyperlipidemia, unspecified Status: Acute Assessment and Plan: - continue home statin (10) Constipation: Code(s): K59.00 - Constipation, unspecified Status: Acute Assessment and Plan: - +BM 11/29 - continue Miralax Plan CODE STATUS- full code, confirmed on admit. Subjective Date/time seen: 11/29/24 10:45 Interval history: Patient seen and examined at bedside. Resting comfortably. at bedside. States he urinated multiple times last night. Does not have any bladder pressure or pain. Review of Systems Review of Systems: 12 systems were reviewed with pertinent positives and negatives per HPI. All systems reviewed & are unremarkable except as noted in HPI and below Exam Narrative: General: NAD, obese Eyes: EOMI ENT: neck supple Cardiovascular: Regular rate and rhythm Respiratory: Clear to auscultation, respirations even and unlabored on RA Gastrointestinal: Soft, non tender Genitourinary: no suprapubic tenderness Musculoskeletal: trace BLE edema Skin: warm, dry Neuro: Alert. Psych: Mood appropriate Objective Data Vital Signs Vital Signs: Vital Signs - 24 hr 11/28/24 14:00 11/28/24 20:00 11/28/24 22:17 Temperature 98.1 F 98.1 F Pulse Rate 75 88 Respiratory Rate 18 20 Blood Pressure 156/77 H 129/78 Pulse Oximetry 98 99 Oxygen Delivery Room Air 11/29/24 06:00 11/29/24 08:00 Temperature 97.9 F Pulse Rate 78 Respiratory Rate 18 Blood Pressure 157/86 H Pulse Oximetry 97 Oxygen Delivery Room Air Intake/Output Intake/Output: Intake & Output 11/26/24 11/27/24 11/28/24 11/29/24 23:59 23:59 23:59 23:59 Intake Total 3550 2772 1490 1080 Output Total 3600 5985 1500 Balance -50 -3213 -10 1080 Meds/Results Medications: Active Medications Generic Name Dose Route Start Last Admin Trade Name Freq PRN Reason Stop Dose Admin Dextrose 12.5 gm 11/26/24 11:15 Dextrose 50% 25 Gm/50 Ml Syringe IV PUSH PRN PRN Hypoglycemia Protocol Enoxaparin Sodium 40 mg 11/27/24 09:00 11/29/24 09:35 Enoxaparin 40 Mg/0.4 Ml Syringe SUB-Q 40 mg DAILY LISA Administration Glucagon 1 mg 11/26/24 11:15 Glucagon For Inj 1 Mg Vial IM PRN PRN Hypoglycemia Protocol Glucose 15 gm 11/26/24 11:15 Glucose Oral Gel 15 Gm Of Glucse In 37.5 Gm Tube PO PRN PRN Hypoglycemia Protocol Ceftriaxone Sodium 1 gm/ 50 mls @ 100 mls/hr 11/26/24 20:00 11/28/24 22:00 Sodium Chloride IVPB Infused Q24H LISA Infusion Dextrose 1,000 mls @ 100 mls/hr 11/26/24 11:15 Dextrose 5% 1,000 Ml IVPB PRN PRN Hypoglycemia Protocol Insulin Aspart 1 - 3 units 11/27/24 21:00 11/29/24 01:13 Insulin Aspart (*Bkc) 100 Units/Ml SUB-Q Not Given HS LISA Protocol Insulin Aspart 3 - 6 units 11/27/24 08:00 11/29/24 09:34 Insulin Aspart (*Bkc) 100 Units/Ml SUB-Q Not Given TIDWM LISA Protocol Insulin Glargine 10 units 11/27/24 21:00 11/28/24 21:24 Insulin Glargine (*Bkc) 100 Units/Ml SUB-Q 10 units HS LISA Administration Pantoprazole Sodium 40 mg 11/27/24 09:00 11/29/24 09:35 Pantoprazole 40 Mg Tablet PO 40 mg DAILY LISA Administration Polyethylene Glycol 17 gm 11/28/24 10:00 11/29/24 09:35 Polyethylene Glycol 3350 17 Gm Powd.Pack PO 17 gm QAM LISA Administration Simvastatin 40 mg 11/27/24 09:00 11/29/24 09:35 Simvastatin 20 Mg Tablet PO 40 mg DAILY LISA Administration Tamsulosin HCl 0.4 mg 11/26/24 17:00 11/29/24 09:35 Tamsulosin Hcl 0.4 Mg Capsule PO 0.4 mg BID LISA Administration Radiology Results: ITS Impressions Chest X-Ray 11/25/24 16:43 IMPRESSION: Mild pulmonary vascular congestion, without focal infiltrate or effusion. Abdomen/Pelvis CT 11/25/24 17:30 IMPRESSION: Findings consistent with infection of the bladder with the bilateral ureteritis, and possible early pyelonephritis. Hepatomegaly. Renal Ultrasound 11/28/24 08:35 Impression: 1: Bilateral echogenic foci, suspicious for renal stones. 2: Bilateral hydronephrosis, right greater than left. Labs Labs: Laboratory Results - last 24 hr 11/27/24 11/28/24 11/28/24 05:26 11:48 17:29 WBC RBC Hgb Hct MCV MCH MCHC RDW Plt Count MPV Immature Gran % (Auto) Neut % (Auto) Lymph % (Auto) [place] % (Auto) Eos % (Auto) Baso % (Auto) Lymph # (Auto) [place] # (Auto) Eos # (Auto) Baso # (Auto) Abs Immat Gran (auto) Absolute Neuts (auto) Absolute Nucleated RBC Nucleated RBC % Sodium Potassium Chloride Carbon Dioxide Anion Gap BUN Creatinine Estim Creat Clear Calc Estimated GFR Glucose POC Capillary Glucose 199 H 185 H Calcium Ionized Calcium 5.7 H 11/28/24 11/29/24 11/29/24 21:59 05:25 08:41 WBC 10.7 H RBC 4.65 Hgb 13.6 L Hct 41.1 L MCV 88.4 MCH 29.2 MCHC 33.1 RDW 13.4 Plt Count 304 MPV 9.8 Immature Gran % (Auto) 0.5 Neut % (Auto) 72.2 Lymph % (Auto) 13.2 L [place] % (Auto) 9.2 H Eos % (Auto) 4.1 Baso % (Auto) 0.8 Lymph # (Auto) 1.42 [place] # (Auto) 1.0 H Eos # (Auto) 0.4 H Baso # (Auto) 0.1 Abs Immat Gran (auto) 0.05 H Absolute Neuts (auto) 7.7 H Absolute Nucleated RBC 0.000 Nucleated RBC % 0.0 Sodium 130 L Potassium 3.8 Chloride 94 L Carbon Dioxide 25 Anion Gap 11 BUN 28 H Creatinine 1.66 H Estim Creat Clear Calc 40 Estimated GFR 40 L Glucose 154 H POC Capillary Glucose 173 H 168 H Calcium 9.8 Ionized Calcium Quality VTE Prophylaxis VTE prophylaxis: pharmacologic ordered
[2024-11-29 14:00] VITALS: BP 153/76; PULSE 79; RESP 18; TEMP 35.8; O2SAT 92
[2024-11-29 21:56] VITALS: BP 152/69; PULSE 74; RESP 20; TEMP 36.7; O2SAT 99
[2024-11-29 21:59] VITALS: O2SAT 93
[2024-11-29] MEDS: INSULIN GLARGINE (*BKC) 100 UNITS/ML 10 UNITS SUB-Q (22:17)
[2024-11-30 05:43] VITALS: BP 143/78; PULSE 81; RESP 20; TEMP 36.6; O2SAT 99
[2024-11-30 05:56] LABS: Hematocrit 39.6 % (42.0-52.0); Hemoglobin 13.0 g/dL (14.0-18.0); Immature Granulocyte Percent A 0.4 % (0-0.5); Lymphocytes Absolute Auto 1.24 K/mm3 (0.9-3.2); Mean Corpuscular HGB Conc 32.8 g/dl (32-36); Mean Corpuscular Hemoglobin 29.0 pg (26-34); Mean Corpuscular Volume 88.4 fl (80-100); Nucleated Red Blood Cells Absolute Auto 0.000 K/mm3 (0.0-0.012); Nucleated Red Blood Cells Perc 0.0 % (0.0-0.2); Platelet Count Result 272 k/mm3 (150-375); Red Blood Count 4.48 M/mm3 (4.6-6.20); White Blood Count 6.7 K/mm3 (4.5-10.0)
[2024-11-30 06:04] LABS: Anion Gap 7 mmol/L (4-12); Blood Urea Nitrogen 26 mg/dL (9-20); Calcium 9.4 mg/dL (8.4-10.2); Carbon Dioxide 26 mmol/L (22-30); Chloride 102 mmol/L (98-107); Estimated CRCL calculation 41 ml/min; Estimated Glomerular Filt Rate 41; Glucose 154 mg/dL (65-110); Potassium 3.9 mmol/L (3.4-5.0); Sodium 135 mmol/L (137-145)
--- NOTE | 2024-11-30 07:43 | P.DS_ITS ---
DS: Admitting Diagnosis Discharge Date 11/30/24 Admitting Diagnosis - Acute UTI - Urinary retention - hydronephrosis - HARINI DS: Discharge Diagnosis Discharge Diagnosis (1) Acute UTI: Code(s): N39.0 - Urinary tract infection, site not specified Status: Acute (2) Acute urinary retention: Code(s): R33.8 - Other retention of urine Status: Acute (3) Hydronephrosis: Code(s): N13.30 - Unspecified hydronephrosis Status: Acute (4) Acute kidney injury superimposed on CKD: Code(s): N17.9 - Acute kidney failure, unspecified; N18.9 - Chronic kidney disease, unspecified Status: Acute (5) Hypercalcemia: Code(s): E83.52 - Hypercalcemia Status: Acute (6) Hypertension: Code(s): I10 - Essential (primary) hypertension Status: Acute (7) Hyponatremia: Code(s): E87.1 - Hypo-osmolality and hyponatremia Status: Acute (8) T2DM (type 2 diabetes mellitus): Code(s): E11.9 - Type 2 diabetes mellitus without complications Status: Acute (9) HLD (hyperlipidemia): Code(s): E78.5 - Hyperlipidemia, unspecified Status: Acute (10) Constipation: Code(s): K59.00 - Constipation, unspecified Status: Acute DS: Summary Hospital Course Reason for hospitalization: - Acute UTI - Urinary retention - hydronephrosis - HARINI Hospital Course: Patient is a 74 yo male with PMH of CKD, T2DM, kidney stones, frequent UTIs, hypertension who presented to the ED with urinary symptoms and fever. In ED, CT A/P showed findings consistent with infection of the bladder with the bilateral ureteritis, and possible early pyelonephritis. Hepatomegaly. Multiple nonobstructive renal stones. CXR showed mild pulmonary vascular congestion. WBC 11.9, Na 130, BUN 34, Cr 2.16, GFR 30, glucose 199, calcium 11.6. UA with 1+ protein, 3+ glucose, 2+ blood, 3+ LE, >100 WBC. Zuniga placed in ED. Received IV fluids and started on IV Rocephin with improvement in patient's symptoms. Patient admitted to medical floor for further evaluation and management. Patient was continued on IV Rocephin for UTI/early pyelonephritis. Urine culture showed Proteus vulgaris, sensitive to cephalosporins and fluoroquinolones. Patient had improvement in his symptoms, WBC trended down and patient remained afebrile. Patient was transitioned to PO Levaquin on discharge. Patient noted to have HARINI with admit Cr 2.16. Baseline Cr unclear, but patient did report history of CKD likely in setting of HTN and T2DM. HARINI was likely multifactorial in setting of dehydration and prolonged urinary retention. His Cr trended down to 1.6 with Zuniga catheter placement and IV fluids. Patient was instructed to establish with a equity director after discharge. Ordered repeat BMP in 7 days. Urology was consulted on admission and recommended renal ultrasound which showed persistent hydronephrosis. Urology recommended voiding trial which patient passed with PVRs 150-180cc. He denied symptoms of urinary retention. I pe rsonally discussed case with Dr. Esparza with urology on discharged who was okay with patient being discharged without a Zuniga with close outpatient follow-up. Patient has a follow-up scheduled for 12/10. He will continue his home Flomax on discharge. Patient also noted to have hypercalcemia on admit (Ca 11.6). Patient is on calcium supplements on home and was dehydrated on admit. His calcium level n ormalized with IV fluids. Patient reported a ?history of partial parathyroid removal. No records to review. PTH was pending on discharge. Patient was instructed to stop calcium supplements and have a repeat BMP in 7 days. He was instructed to follow-up with his PCP regarding his hypercalcemia. Patient also noted to have mild hyponatremia which improved with increased PO intake. Patient was instructed to continue his Januvia for T2DM. Encouraged patient to discuss discontinuing Farxiga with his PCP due to frequent UTIs. Continue to monitor renal function closely while on metformin. Resume lisinopril for hypertension given stable creatinine. Patient was discharged home in stable condition with his . Strict return precautions discussed. Time Spent with Patient Time attestation: Total time spent providing and/or coordinating discharge services: Exam Narrative: General: NAD, obese Eyes: EOMI ENT: neck supple Cardiovascular: Regular rate and rhythm Respiratory: Clear to auscultation, respirations even and unlabored on RA Gastrointestinal: Soft, non tender Genitourinary: no suprapubic tenderness Musculoskeletal: trace BLE edema Skin: warm, dry Neuro: Alert. Psych: Mood appropriate DS: Data Data Completed and Pending Labs on day of discharge: Labs from last 24 hours 11/30/24 11/29/24 11/29/24 05:23 20:24 16:03 WBC 6.7 RBC 4.48 L Hgb 13.0 L Hct 39.6 L MCV 88.4 MCH 29.0 MCHC 32.8 RDW 13.4 Plt Count 272 MPV 9.7 Immature Gran % (Auto) 0.4 Neut % (Auto) 60.4 Lymph % (Auto) 18.4 Collier % (Auto) 14.6 H Eos % (Auto) 5.2 H Baso % (Auto) 1.0 Lymph # (Auto) 1.24 Collier # (Auto) 1.0 H Eos # (Auto) 0.4 H Baso # (Auto) 0.1 Abs Immat Gran (auto) 0.03 Absolute Neuts (auto) 4.1 Absolute Nucleated RBC 0.000 Nucleated RBC % 0.0 Sodium 135 L Potassium 3.9 Chloride 102 Carbon Dioxide 26 Anion Gap 7 BUN 26 H Creatinine 1.63 H Estim Creat Clear Calc 41 Estimated GFR 41 L Glucose 154 H POC Capillary Glucose 146 H 149 H Calcium 9.4 11/29/24 11/29/24 12:18 08:41 WBC RBC Hgb Hct MCV MCH MCHC RDW Plt Count MPV Immature Gran % (Auto) Neut % (Auto) Lymph % (Auto) Collier % (Auto) Eos % (Auto) Baso % (Auto) Lymph # (Auto) Collier # (Auto) Eos # (Auto) Baso # (Auto) Abs Immat Gran (auto) Absolute Neuts (auto) Absolute Nucleated RBC Nucleated RBC % Sodium Potassium Chloride Carbon Dioxide Anion Gap BUN Creatinine Estim Creat Clear Calc Estimated GFR Glucose POC Capillary Glucose 171 H 168 H Calcium Preliminary micro results at discharge 11/25/24 17:09 Blood Culture - Preliminary Blood 11/25/24 16:00 Blood Culture - Preliminary Blood Discharge Plan Discharge Attending physician on discharge: Lisa Molina Consulting providers: Brielle Napoles; Nevaeh Leung Discharging Clinician: Brielle Napoles Anticipated Discharge Date/Time: 11/30/24 10:51 Patient Disposition: Home Activity: as tolerated Diet: diabetic Discharge Instructions: While hospitalized, you were treated for urinary tract infection and urinary retention. Is important to finish all antibiotics even if you are feeling better. It is also important to follow-up with urology to discuss prostate conditions. Return to the emergency department if you develop severe back pain, fevers, inability to urinate. Call your primary care doctor if you have any concerns about recurrence of urinary tract infection including urinary frequency, burning with urination, blood in the urine. While hospitalized, your calcium level was mildly elevated. This could be due to calcium supplements and dehydration. Stop taking calcium supplements. Follow- up with your primary care doctor about her elevated calcium levels. Have your lab work rechecked in 1 week. While in the hospital, your creatinine level was elevated which indicates kidney disease. It is important to establish with a equity director to follow your kidney function. Talk to your doctor about stopping Farxiga due to increased risk of urinary tract infections. Follow-up with your primary care provider in one week. Return to the emergency department if you develop chest pain, shortness of breath, persistent fever >100.4, confusion, loss of consciousness. Patient Instructions: Antibiotic Form Patient Language: Mongolian Stand Alone Forms: General Discharge Information Follow-up/Referrals: Nevaeh Leung MD [Physician] - Nic Rachel MD [Physician] - Call for Appointment (chronic kidney disease) Debbie,Mateus Degroot MD [Primary Care Provider] - Call for Appointment (5-7 days) Discharge Medications: New levofloxacin 750 mg tablet 750 mg PO EVERY OTHER DAY Qty: 2 0RF Continued simvastatin 40 mg tablet 40 mg PO DAILY tamsulosin 0.4 mg capsule 0.4 mg PO Q24H pantoprazole 40 mg tablet,delayed release (DR/EC) 40 mg PO DAILY metronidazole 0.75 % cream 1 applic TOPICAL DAILY Rx Instructions: apply to top of head lisinopril 40 mg tablet 40 mg PO DAILY metformin 500 mg tablet extended release 24 hr 500 mg PO DAILY Januvia 50 mg tablet 50 mg PO DAILY dapagliflozin propanediol [Farxiga] 10 mg tablet 10 mg PO DAILY azelastine 137 mcg (0.1 %) spray,non-aerosol 1 spray INTRANASAL Q12H Other Ambulatory Orders: Basic Metabolic Panel (Routine) Timeframe: 1 Week Location: Determined by Patient Ordered By: Brielle Napoles Date of admission: 11/25/24 20:48 Primary Care Provider: Debbie,Mateus Degroot Admitting Provider: Kaylee Hoffmann Attending physician on admission: Kaylee Hoffmann Condition: Stable
[2024-11-30] MEDS: ENOXAPARIN 40 MG/0.4 ML SYRINGE SUB-Q (08:55)
[2024-11-30] MEDS: PANTOPRAZOLE 40 MG TABLET PO (08:56)
[2024-11-30] MEDS: SIMVASTATIN 20 MG TABLET 40 MG PO (08:56)
[2024-11-30] MEDS: TAMSULOSIN HCL 0.4 MG CAPSULE PO (08:56)
== END 2024-11-30 13:00 | disposition home or self-care (01) | DRG 690 ==
LOC: ANHED 20:47 → ANH3MED 11-26 05:08
PROVIDERS: Physician Assistant; Admitting Provider Internal Medicine; Emergency Provider Emergency Medicine; PCP Internal Medicine; Visit Provider Internal Medicine
DX: N39.0 Urinary tract infection, site not specified (principal); N17.9 Acute kidney failure, unspecified; E87.1 Hypo-osmolality and hyponatremia; B96.4 Proteus (mirabilis) (morganii) as the cause of diseases classified elsewhere; E86.0 Dehydration; E83.52 Hypercalcemia; E11.22 Type 2 diabetes mellitus with diabetic chronic kidney disease; E78.5 Hyperlipidemia, unspecified; I12.9 Hypertensive chronic kidney disease with stage 1 through stage 4 chronic kidney disease, or unspecified chronic kidney disease; N18.9 Chronic kidney disease, unspecified; R33.8 Other retention of urine; Z96.0 Presence of urogenital implants; Z87.442 Personal history of urinary calculi; Z90.89 Acquired absence of other organs; Z79.84 Long term (current) use of oral hypoglycemic drugs
CPT/HCPCS: 36415; 71045; 74177; 76775; 80048; 80053; 80307; 81001; 82077; 82306; 82330; 82397; 82948; 83036; 83605; 83690; 83735; 84443; 85025; 87040; 87086; 87637; 93005; 99285; A9270; J0696; J1650; J1815; J7120; Q9967

== ENCOUNTER 2024-12-31 14:13 | Outpatient (CLI) | payer MEDICARE, BC, OTHER, SELFPAY ==
--- OUTSIDE RECORDS SUMMARY | 2024-12-11 03:00 | XMS_ITS ---
Author Organization [facility] Address [address] [place], [place] [id number] Care Team Providers Care Pulp Tester Name Role Phone SATURNINO WARE Unavailable [phone] Saturnino Tena Unavailable Unavailable REASON FOR VISIT *General care Medications Medication SIG (Take, Route, Fr equency, Duration) Notes Start Date End Date Status Clotrimazole 1 % 1 application Beef Specialist ally Once a day; Duration: 30 days 12/11/2024 12/06/2025 Active Vital Signs Weight 220 lbs 12/11/2024 Weight-kg 99.79 kg 12/11/2024 Encounters Encounter Location Date Provider Diagnosis [facility] [address] [place], [place] [id number] 12/11/2024 SATURNINO WARE Tinea unguium B35.1 ; Type 2 diabetes mellitus with other [...] subungual debris and necrotic tissue removed 12/11/2024 Type 2 diabetes mellitus with other [...] Date Stop Date Notes Clotrimazole 1 % 1 application Beef Specialist ally Once a day; Duration: 30 days 12/11/2024 [...] Details Follow Up: 3 Months,Cecil TEJADA on: Provider Name:SATURNINO PRADO, 02/11/2025 07:50:00 AM, [address], [address], [id number], Progress Notes * MARI GREYDOB:[birth year] (74 yo M)Acc No.[id number]:12/11/2024 Progress Notes Patient: MARI SÁNCHEZ Provider: Nichole WARE :1950 A ge:74 Y S ex:Male Date:12/11/2024 Address:[address] [place], [place] [phone] Subjective: * Chief Complaints: * 1 . *General care. * HPI: H PI: General care P [...] complains of n umbness. * Medical History: K idney stones, Skin Disorder, Arthritis, Bladder infections, Sleep apnea, Diabetic, High blood pressure. * Family History: N o Family History documented.. * Medications: N one Objective: * Vitals: W t: 220 lbs, [...] inea unguium - B35.1 (Primary) 2 . T ype 2 diabetes mellitus with other circulatory complications - E11.59 3 . P ain in right foot - M79.671 ? 4 . P ain in left foot - M79.672 Plan: * Treatment: 2. T ype 2 [...] Amputation Prevention Guide. * Follow Up: 3 Months,GC * Billing Information: * Visit Code: * Procedure Codes: * Electronic signature of SUMANTH WARE DPYanna on 12/31/2024 at 02:50 PM CDT Sign off status: Pending * Provider: Nichole WARE Date: 0 12/11/2024 Generated for Monica jain/Elba/Michael on: 0 12/31/2024 02:50 PM CDT History and Physical Notes * HPI (History [...]
--- NOTE | 2024-12-31 | ECHO_ITS ---
Patient Info Name: Mark Mays Age: 74 years : 1950 Gender: Male Ht: 70 in Wt: 220 lbs BSA: 2.25 m2 HR: 82 bpm BP: 141 / 83 mmHg Heart Rhythm: Sinus Rhythm Technical Quality: Fair Exam Date: 12/31/2024 2:53 PM Patient Status: O Admit Date: 12/31/2024 Exam Type: CA echo doppler color flow Complete two-dimensional, color flow and Doppler transthoracic echocardiogram is performed. Chuck Boner: Lindsey Alcantara Attending Provider: Jillian Tena Summary 1. Complete two-dimensional, color flow and Doppler transthoracic echocardiogram is performed. 2. Left ventricular hypertrophy with vigorous systolic function and grade 1 diastolic noncompliance. 3. Mild aortic valve stenosis, valve area 1.6 cm2 mean gradient of 11 mm Hg. Left Ventricle Left ventricular chamber dimension is normal. Left ventricular systolic function is hyperdynamic, estimated at >70. There is mild concentric increased left ventricular wall thickness. The left ventricular diastolic function is grade I diastolic dysfunction. Right Ventricle Right ventricular chamber dimension is normal. Left Atria Left atrial chamber dimension is normal. Right Atria Right atrial chamber dimension is normal. Aortic Valve The aortic valve is trileaflet. There is moderate aortic valve sclerosis. There is mild aortic valve stenosis with a peak velocity of 210 cm/s, mean gradient of 11 mmHg, and aortic valve area of 1.7 cm2. Pulmonic Valve The pulmonic valve is not well visualized. Mitral Valve The mitral valve has normal leaflets. Tricuspid Valve The tricuspid valve leaflets are normal. Pericardium/Pleural The pericardium appears normal. Aorta The aortic root size at the sinus of Valsalva is normal. Left Ventricular Outflow Tract Name Value Normal LVOT 2D LVOT Diameter 2.2 cm LVOT Doppler LVOT Peak Velocity 94 cm/s LVOT Peak Gradient 4 mmHg LVOT Mean Gradient 2 mmHg LVOT VTI 19 cm LVOT VTI/AV VTI Ratio 0.5 LVOT Stroke Volume 69 ml LVOT CO 16.4 l/min LVOT CI 7.3 l/min/m2 Pulmonic Valve Name Value Normal PV Doppler PV Peak Velocity 115 cm/s PV Peak Gradient 5 mmHg Mitral Valve Name Value Normal MV Diastolic Function MV E Peak Velocity 52 cm/s MV A Peak Velocity 71 cm/s MV E/A 0.7 MV Decel Time (PW) 287 ms MV Annular TDI MV E/e' (Septal) 5.2 MV E/e' (Lateral) 5.3 MV E/e' (Average) 5.3 Tricuspid Valve Name Value Normal TV Regurgitation Doppler TR Peak Velocity 201 cm/s TR Peak Gradient 16 mmHg Estimated PAP/RSVP RA Pressure 10 mmHg <=5 PA Systolic Pressure 26 mmHg <36 RV Systolic Pressure 26 mmHg <36 TV Annular TDI TV Lateral Mena s' Velocity 12.5 cm/s >=9.5 Aorta Name Value Normal Ascending Aorta Ao Root Diameter (MM) 4.2 cm Ao Root Diam Index (MM) 1.9 cm/m2 Aortic Valve Name Value Normal AV Doppler AV Peak Velocity 210 cm/s AV Peak Gradient 18 mmHg AV Mean Gradient 11 mmHg AV VTI 41 cm AV Area (Cont Eq VTI) 1.7 cm2 >=3.0 AV Area (Cont Eq Rg) 1.6 cm2 AV DI (Rg) 0.45 AV Regurgitation 2D LVOT Area 3.7 cm2 Ventricles Name Value Normal LV Dimensions 2D/MM IVS Diastolic Thickness (2D) 1.7 cm 0.6-1.0 LVID Diastole (2D) 3.9 cm 4.2-5.8 LVIW Diastolic Thickness (2D) 1.4 cm 0.6-1.0 LVID Systole (2D) 2.6 cm 2.5-4.0 LVOT Diameter 2.2 cm LV Mass (2D Cubed) 238.50 g 88.00-224.00 LV Mass Index (2D Cubed) 106 g/m2 49-115 Relative Wall Thickness (2D) 0.71 <=0.42 LV Fractional Shortening/Ejection Fraction 2D/MM LV Fractional Shortening (2D) 35 % 25-43 LV EF (2D Teichholz) 64 % LV Diastolic Volume (4C MOD) 88 ml LV EF (4C MOD) 77 % LV Diastolic Volume (2C MOD) 105 ml LV EF (2C MOD) 54 % LV Diastolic Volume (BP MOD) 99 ml 62-150 LV Diastolic Volume Index (BP MOD) 44 ml/m2 34-74 LV Systolic Volume (BP MOD) 31 ml 21-61 LV Systolic Volume Index (BP MOD) 14 ml/m2 11-31 LV EF (BP MOD) 68 % 52-72 LV Diastolic Length (4C) 8.6 cm LV Systolic Length (4C) 6.8 cm LV Stroke Volume (4C MOD) 68 ml Atria Name Value Normal LA Dimensions LA Dimension (MM) 3.9 cm 3.0-4.0 LA Volume (4C A-L) 49 ml LA Volume (BP A-L) 60 ml RA Dimensions RA Systolic Major [place] Length (4C) 4.9 cm 2.1-2.7 RA Area (4C) 14.9 cm2 <=18.0 Report Signatures
--- OUTSIDE RECORDS SUMMARY | 2024-12-31 14:50 | XMS_ITS | Clinical Summary ---
Author Organization [facility] Address [facility] [place] [address] Care Team Providers Care Recooperer Name Role Phone Jillian Tena NP Primary Care Provider [phone] Allergies No known active allergies Medications CPAP DEVICE, DME, 1 Device by Does not apply route. Active cranberry 500 MG CapIndications:Pure hypercholesterolemia,E ssential hypertension,Type 2 diabetes mellitus with complication, without long-term current use of insulin ([facility]),Allergic rhinitis,Erectile dysfunction of nonorganic origin,Gastroesophagea l reflux disease without esophagitis,Joint pain,Generalized edema Take 1 tablet (500 mg total) by mouth daily. 90 tablet 3 024 Active Glucose Blood (FREESTYLE LITE) test stripIndications:Essen tial hypertension,Type 2 diabetes mellitus with complication, without long-term current use of insulin ([facility]CC),Allergic rhinitis,Erectile dysfunction of nonorganic origin,Gastroesophagea l reflux disease without esophagitis FreeStyle Lite Test In Vitro StripUSE ONE TO TWO TIMES EVERYDAY directed 200 strip 3 024 Active Lancets (FREESTYLE) lancetsIndications:Ess ential hypertension,Type 2 diabetes mellitus with complication, without long-term current use of insulin ([facility]),Allergic rhinitis,Erectile dysfunction of nonorganic origin,Gastroesophagea l reflux disease without esophagitis 1 each by Other route 2 (two) times daily. 90 each 3 024 Active aspirin 81 MG chewable tabletIndications:Type 2 diabetes mellitus with other circulatory complication, without long-term current use of insulin ([facility]) Chew 1 tablet (81 mg total) by mouth daily. 90 tablet 1 Active fish oil (OMEGA-3 FATTY ACID) 1000 MG Cap capsuleIndications:All ergic rhinitis due to other allergic trigger, unspecified seasonality,Essential hypertension,Type 2 diabetes mellitus with complication, without long-term current use of insulin ([facility]),Erectile dysfunction of nonorganic origin,Gastroesophagea l reflux disease without esophagitis Take 1 capsule (1,000 mg total) by mouth 2 (two) times daily. 180 capsule 3 Active Glucosamine-Chondroit- Vit C-Mn (GLUCOSAMINE CHONDR 1500 COMPLX) CapIndications:Arthral kalyani, unspecified joint Take 1 capsule by mouth daily. 90 capsule 1 024 Active metroNIDAZOLE (METROCREAM) 0.75 % creamIndications:Gener alized edema APPLY TO FACE TWICE A DAY 45 g 6 024 Active Multiple Vitamin (MULTIVITAMIN ADULT) TabIndications:Allergi c rhinitis due to other allergic trigger, unspecified seasonality,Essential hypertension,Type 2 diabetes mellitus with complication, without long-term current use of insulin ([facility]),Erectile dysfunction of nonorganic origin,Gastroesophagea l reflux disease without esophagitis,Arthralgia , unspecified joint,Generalized edema,Pure hypercholesterolemia Take 1 tablet by mouth daily. 90 tablet 3 024 Active vitamin B-12 (CYANOCOBALAMIN) (CYANOCOBALAMIN) 1000 mcg tabletIndications:Reggie rgic rhinitis due to other allergic trigger, unspecified seasonality,Essential hypertension,Type 2 diabetes mellitus with complication, without long-term current use of insulin ([facility]),Erectile dysfunction of nonorganic origin,Gastroesophagea l reflux disease without esophagitis Take 1 tablet (1,000 mcg total) by mouth daily. 90 tablet 1 024 Active vitamin C (ASCORBIC ACID) 500 MG tabletIndications:Reggie rgic rhinitis due to other allergic trigger, unspecified seasonality,Essential hypertension,Type 2 diabetes mellitus with complication, without long-term current use of insulin ([facility]),Erectile dysfunction of nonorganic origin,Gastroesophagea l reflux disease without esophagitis Take 1 tablet (500 mg total) by mouth daily. 90 tablet 1 024 Active Coenzyme Q10 (COQ10) 200 MG CapIndications:Allergi c rhinitis due to other allergic trigger, unspecified seasonality,Essential hypertension,Type 2 diabetes mellitus with complication, without long-term current use of insulin ([facility]),Erectile dysfunction of nonorganic origin,Gastroesophagea l reflux disease without esophagitis Take 1 capsule by mouth daily. 90 capsule 3 025 Active lisinopril (PRINIVIL) 40 MG tabletIndications:Esse ntial hypertension Take 0.5 tablets (20 mg total) by mouth daily. 90 tablet 1 025 Active metFORMIN ER (GLUCOPHAGE-XR) 500 MG 24 hr tabletIndications:Type 2 diabetes mellitus with other circulatory complication, without long-term current use of insulin ([facility]) Take 1 tablet (500 mg total) by mouth daily with breakfast. 90 tablet 1 025 Active azelastine (ASTELIN) 0.1 % nasal sprayIndications:Aller gic rhinitis due to other allergic trigger, unspecified seasonality 2 sprays by Nasal route 2 (two) times daily. 90 mL 3 025 Active SITagliptin (JANUVIA) 50 MG tabletIndications:Type 2 diabetes mellitus with other circulatory complication, without long-term current use of insulin ([facility]) Take 1 tablet (50 mg total) by mouth daily. 60 tablet 1 025 Active pantoprazole EC (PROTONIX) 40 MG tabletIndications:Don roesophageal reflux disease without esophagitis Take 1 tablet (40 mg total) by mouth daily. 90 tablet 1 025 Active sildenafil (VIAGRA) 50 MG tabletIndications:Erec tile dysfunction of nonorganic origin Take 1 tablet (50 mg total) by mouth daily as needed. 10 tablet 1 025 Active simvastatin (ZOCOR) 40 MG tabletIndications:Pure hypercholesterolemia Take 1 tablet (40 mg total) by mouth nightly at bedtime. 90 tablet 1 025 Active tamsulosin (FLOMAX) 0.4 MG CapIndications:Erectil e dysfunction of nonorganic origin Take 1 capsule (0.4 mg total) by mouth daily. 90 capsule 1 09/04/2 025 Active vibegron (GEMTESA) 75 MG tablet Take 1 tablet (75 mg total) by mouth daily. 024 2024 Discontinued azelastine (ASTELIN) 0.1 % nasal sprayIndications:Aller gic rhinitis due to other allergic trigger, unspecified seasonality 2 sprays by Nasal route 2 (two) times daily. 90 mL 3 024 2024 Discontinued( Reorder) lisinopril (PRINIVIL) 40 MG tabletIndications:Esse ntial hypertension Take 1 tablet (40 mg total) by mouth daily. 90 tablet 1 2024 Discontinued metFORMIN ER (GLUCOPHAGE-XR) 500 MG 24 hr tabletIndications:Type 2 diabetes mellitus with other circulatory complication, without long-term current use of insulin ([facility]) Take 1 tablet (500 mg total) by mouth daily with breakfast. 90 tablet 1 2024 Discontinued( Reorder) pantoprazole EC (PROTONIX) 40 MG tabletIndications:Don roesophageal reflux disease without esophagitis Take 1 tablet (40 mg total) by mouth daily. 90 tablet 1 2024 Discontinued( Reorder) sildenafil (VIAGRA) 50 MG tabletIndications:Erec tile dysfunction of nonorganic origin Take 1 tablet (50 mg total) by mouth daily as needed. 10 tablet 1 2024 Discontinued( Reorder) simvastatin (ZOCOR) 40 MG tabletIndications:Pure hypercholesterolemia Take 1 tablet (40 mg total) by mouth nightly at bedtime. 90 tablet 1 025 2024 Discontinued( Reorder) SITagliptin (JANUVIA) 50 MG tabletIndications:Type 2 diabetes mellitus with other circulatory complication, without long-term current use of insulin ([facility]) Take 1 tablet (50 mg total) by mouth daily. 90 tablet 1 025 2024 Discontinued tamsulosin (FLOMAX) 0.4 MG CapIndications:Erectil e dysfunction of nonorganic origin Take 1 capsule (0.4 mg total) by mouth daily. 90 capsule 1 025 2024 Discontinued( Reorder) testosterone (ANDROGEL) 20.25 MG/ACT (1.62%) GelIndications:Hypogon adism, testicular Place 20.25 mg onto the skin daily. 75 g 1 025 2024 Discontinued dapagliflozin (FARXIGA) 10 MG tabletIndications:Stag e 3b chronic kidney disease ([facility]) Take 1 tablet (10 mg total) by mouth daily. 90 tablet 1 025 2024 Discontinued SITagliptin (JANUVIA) 50 MG tabletIndications:Type 2 diabetes mellitus with other circulatory complication, without long-term current use of insulin ([facility]) Take 1 tablet (50 mg total) by mouth daily. 025 2024 Discontinued( Reorder) lisinopril (PRINIVIL) 40 MG tabletIndications:Esse ntial hypertension Take 0.5 tablets (20 mg total) by mouth daily. 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 Skin lesions 10/02/2024 Rosacea 10/02/2024 Stage 3b chronic kidney disease 07/26/2023 Aortic root dilation 10/03/2022 Persistent proteinuria 07/28/2022 Obstructive sleep apnea syndrome, severe 022 Hypercalcemia 10/16/2016 Abdominal hernia 09/21/2016 Parathyroid disease ([facility]) 09/21/2016 Primary hyperparathyroidism ([facility]) 09/21/2016 Umbilical hernia 01/19/2016 Type 2 diabetes mellitus ([facility]) 06/17 Allergic rhinitis 07/10/2013 Benign essential hypertension 02/05/2012 Esophageal reflux 02/05/2012 Hyperlipidemia 02/05/2012 Hypogonadism, testicular 01/25/2012 Erectile dysfunction of nonorganic origin 2011 Encounters Date Type Department Care Team Description 12/29/2024 Telephone [facility] Care - [address] [place] [address] Jillian Tena, MEDICAL LAB TECHNICIAN Forms 12/29/2024 Telephone [facility] Multispecialty [facility] [place] [address] [address] [address] [place] [address] Jillian Tena, MEDICAL LAB TECHNICIAN Forms 12/26/2024 [facility] - [address] [facility] [address] [place] [address] Jillian Tena, MEDICAL LAB TECHNICIAN Information 12/25/2024 [facility] [address] [place] [address] [address] [place] [address] Jillian Tena, MEDICAL LAB TECHNICIAN Referral 12/19/2024 [facility]phone [facility] [address] [place] [address] [address] [place] [address] Jillian Tena, MEDICAL LAB TECHNICIAN Forms 12/18/2024 9:20 AM CDT Office Visit [place] [address] [place] [address] Jillian Tena, MEDICAL LAB TECHNICIAN Follow Up 12/18/2024 Travel 12/12/2024 [facility] [place] [address] [place] [address] Jillian Tena, MEDICAL LAB TECHNICIAN Information 12/05/2024 Results Follow-Up [place] [address] [address] [place] [address] Jillian Tena, MEDICAL LAB TECHNICIAN URINE BACTERIA CULTURE, URINALYSIS, COMPREHENSIVE METABOLIC PANEL, CBC W/DIFF AUTOMATED 12/04/2024 9:00 AM CDT [facility] [place] [address] [address] [place] [address] Jillian Tena, MEDICAL LAB TECHNICIAN Follow Up (Patient presents today for an ER f/u) 12/04/2024 - 12/04/2024 11:59 PM CDT [facility] [address] Jillian Tena, MEDICAL LAB TECHNICIAN Discharge Disposition: Home or Self Care (Routine Discharge) 12/04/2024 Travel 11/30/2024 Scan [facility] Scanned, [facility] 11/28/2024 Scan [facility] Scanned, [facility] Ultrasound (SCAN) 11/25/2024 Scan [facility] Scanned, [facility] Lab (SCAN); CT (SCAN); Image (SCAN); ECG (SCAN) 11/12/2024 Scan [facility] Scanned, [facility] 11/11/2024 Telephone [place] [address] [address] [facility] [address] [place] [address] Jillian Tena, AMERICO Request (Information) 11/06/2024 Scan [facility] Scanned, [facility] 10/31/2024 Telephone [place] [address] [address] [facility] [address] [place] [address] Jillian Tena, MEDICAL LAB TECHNICIAN Referral 10/14/2024 Telephone [place] [address] [address] [facility] [address] [place] [address] Jillian Tena, MEDICAL LAB TECHNICIAN Medication Request 10/03/2024 Results Follow-Up [place] [address] [address] [address] [place] [address] Jillian Tena, AMERICO COMPREHENSIVE METABOLIC PANEL, HEPATITIS C ANTIBODY, VITAMIN D 25 OH, PROSTATE SPECIFIC ANTIGEN,SCREENING 10/03/2024 Telephone [place] [address] [address] [facility] [address] [place] [address] Jillian Tena, MEDICAL LAB TECHNICIAN Medication Problem 10/02/2024 9:00 AM CDT Office Visit [place] [address] [facility] [address] [place] [address] Jillian Tena, MEDICAL LAB TECHNICIAN Physical 10/02/2024 - 10/02/2024 11:59 PM CDT Hospital [facility] [address] [place] [address] Jillian Tena, MEDICAL LAB TECHNICIAN Discharge Disposition: Home or Self Care (Routine Discharge) 10/02/2024 Telephone [facility] Multispecialty Care - [place] [address] [place] [address] Jillian Tena, MEDICAL LAB TECHNICIAN Record Request 10/02/2024 Travel from Last 3 Months Immunizations Immunization Administration [...] Date Recorded Patient Health Questionnaire-2 Score 0 12/04/2024 Sex and Gender Information Value Date Recorded Sex Assigned at Male 04/11/2018 3:37 PM MANAGER TALENT Legal Sex Male 5:13 PM CDT Gender Identity Male 04/11/2018 3:37 PM MANAGER TALENT Sexual Orientation Straight 04/11/2018 3: 37 PM MANAGER TALENT Last Filed Vital Signs Vital Sign Reading Time Taken Comments Blood Pressure 118/58 12/18/2024 9:32 AM CDT Pulse 99 12/18/2024 9:00 AM CDT Temperature 36.4 C (97.5 F) 12/04/2024 8:54 AM CDT Respiratory Rate 18 12/18/2024 9:00 AM CDT Oxygen Saturation 96% 12/18/2024 9:00 AM CDT Inhaled Oxygen Concentration - - Weight 98.2 kg (216 lb 6.4 oz) 12/18/2024 9:00 A M CDT Height 177.8 cm (5' 10) 12/18/2024 9:00 AM CDT Body Mass Index 31.05 12/18/2024 9:00 AM CDT Plan of Treatment Upcoming Encounters Date Type Department Care Team (Late st Contact Info) Description 01/15/2025 9:00 AM CDT [facility] [place] [address] [facility] [address] [place] [address] Jillian Tena, MEDICAL LAB TECHNICIAN [address] [facility] [address] [place] [address] 04/13/2025 2:20 PM MANAGER TALENT [facility] [address] [facility], [address] [place] [address] Cleve Montoya MD [address] [facility], [address] [place] [address] 04/14/2025 11:00 AM MANAGER TALENT [facility] [place] [address] [place] [address] Jillian Tena, MEDICAL LAB TECHNICIAN [address] [facility] [address] [place] [address] Health Maintenance Due Date Last Done Comments Annual Medicare Wellness Visit 2013 Diabetes: Retinopathy Eye Exam 07/12/2023 07/11/2021 COVID-19 Vaccine ( season) 2024 01/05/2022, 06/30/2020, 06/02/2020 Hemoglobin A1C 03/28/2025 09/26/2024, 03/24, 07/26/2023, Additional [...] Years Completed 04/18/2023 Hepatitis C Completed 10/02/2024 PHQ-2 (Physician Calvin) Completed 12/04/2024 Meningococcal B Vaccine Aged Out No l onger eligible based on patient's age to complete this topic Meningococcal Vaccine Aged Out No dariusz yanet eligible based on patient's age to complete this topic RSV Immunizations Under 20 Months Aged Out No longer eligible based on patient's age to complete this topic Procedures Procedure Name Priority Date/Time Associated Diagnosis Comments URINE BACTERIA CULTURE Routine 10:00 AM CDT Acute prostatitis CBC W/DIFF AUTOMATED Routine 12/04/2024 10:00 AM CDT Stage 3b chronic kidney disease (CMS/HCC) COMPREHENSIVE METABOLIC PANEL Routine 12/04/2024 10:00 AM CDT Stage 3b chronic kidney disease (CMS/HCC) HARINI (acute kidney injury) URINALYSIS, AUTO, COMPLETE Routine 12/04/2024 10:00 AM CDT Acute prostatitis ULTRASOUND GENERIC (SCAN ORDER) 11/28/2024 ULTRASOUND GENERIC (SCAN ORDER) 11/28/2024 CT GENERIC 11/25/2024 CT GENERIC 11/25/2024 ECG GENERIC (SCAN ORDER) 11/25/2024 ECG GENERIC (SCAN ORDER) 11/25/2024 OUTSIDE LAB (SCAN ORDER) 11/25/2024 OUTSIDE LAB (SCAN ORDER) 11/25/2024 OUTSIDE LAB (SCAN ORDER) 11/25/2024 OUTSIDE LAB (SCAN ORDER) 11/25/2024 OUTSIDE LAB (SCAN ORDER) 11/25/2024 OUTSIDE LAB (SCAN ORDER) 11/25/2024 OUTSIDE LAB (SCAN ORDER) 11/25/2024 OUTSIDE LAB (SCAN ORDER) 11/25/2024 OUTSIDE LAB (SCAN ORDER) 11/25/2024 OUTSIDE LAB (SCAN ORDER) 11/25/2024 OUTSIDE LAB (SCAN ORDER) 11/25/2024 IMAGE GENERIC 11/25/2024 IMAGE GENERIC 11/25/2024 PROSTATE SPECIFIC ANTIGEN,SCREENING Routine 10/02/2024 9:49 AM [...] AM CDT Impacted cerumen of left ear LIPID PANEL Routine 09/26/2024 8:06 AM CDT Type 2 diabetes mellitus with other circulatory complication, without long-term current use of insulin (CMS/[facility]) HEMOGLOBIN, GLYCOSYLATED Routine 09/26/2024 Type 2 diabetes mellitus with other circulatory complication, without long-term current use of insulin ([facility]) DIABETIC RETINOPATHY EXAM (NEGATIVE)(SCAN ORDER) Routine 07/11/2021 COLONOSCOPY GENERIC (SCAN ORDER) 01/04/2021 from Last 3 Months or Most Recently Relevant to Health Maintenance Results * (ABNORMAL) URINALYSIS (12/04/2024 10:00 AM CDT) COLOR (U) YELLOW 12/04/2024 5:[address] [facility] TRANSPARENCY HAZY(A) CLEAR 12/04/2024 5:[address] [facility] SPECIFIC GRAVITY (U) 1.010 1.003 - 1.040 12/04/2024 5:[address] [facility] U PH 5.5 5.0 - 9.0 12/04/2024 5:[address] [facility] PROTEIN RANDOM (U) TRACE(A) NEGATIVE 12/04/2024 5:[address] [facility] GLUCOSE (U) 3+(A) NEGATIVE 12/04/2024 5:[address] [facility] KETONES MG/DL (U) NEGATIVE NEGATIVE 12/04/2024 5:[address] [facility] BILIRUBIN (U) NEGATIVE NEGATIVE 12/04/2024 5:[address] [facility] BLOOD (U) 1+(A) NEGATIVE 12/04/2024 5:[address] [facility] UROBILINOGEN 0.2 0.0 - 2.0 EU/DL 12/04/2024 5:[address] [facility] NITRITES NEGATIVE NEGATIVE 12/04/2024 5:[address] [facility] LEUKOCYTES (U) 2+(A) NEGATIVE 12/04/2024 5:[address] [facility] RBC/HPF 10-15(A) 0 - 3 /HPF 12/04/2024 5:[address] [facility] WBC/HPF PACKED(A) 0 - 3 /HPF 12/04/2024 5:[address] [facility] EPI/HPF 0-3 /HPF 12/04/2024 5:[address] [facility] BACTERIA (U) NONE SEEN NONE SEEN 12/04/2024 5:[address] [facility] COMMENT (U) WBC CLUMPS PRESENT 12/04/2024 5:[address] [facility] URINE SPECIMEN OBTAINED BY CLEAN CATCH PROCEDURE / Unknown 12/04/2024 10:00 AM CDT Jillian Tena NP URINE ORDERABLES Final Resu lt Performing Organization Address City/[facility] Co de Phone Number [facility] [address] [place] [address], [place] [phone] * URINE BACTERIA CULTURE (12/04/2024 10:00 AM CDT) SPEC DESCRIPTION URINE CLEAN CATCH 12/04/2024 10:01 AM CDT [facility] SPECIAL REQUESTS NO SPECIAL REQUEST 12/04/2024 10:01 AM CDT [facility] CULTURE RESULT NO GROWTH (< OR = 1,000 CFU/ML) 12/06/2024 11:28 AM CDT [facility] URINE SPECIMEN OBTAINED BY CLEAN CATCH PROCEDURE / Unknown 12/04/2024 10:00 AM CDT 12/04/2024 5:20 PM CDT Jillian Tena NP MICROBIOLOGY - GENERAL ORDE RABLES Final Result Performing Organization Address City/[facility] Co de Phone Number [facility] [address] [place] [address], [phone] * (ABNORMAL) COMPREHENSIVE METABOLIC PANEL (12/04/2024 10:00 AM CDT) Only the most recent of2 resultswithin the time period is included. SODIUM S/P/B 135(L) 136 - 145 MMOL/L 12/04/2024 4:40 PM CDT [facility] POTASSIUM S/P/B 4.3 3.5 - 5.1 MMOL/L 12/04/2024 4:40 PM CDT [facility] CHLORIDE S/P/B 99 98 - 107 MMOL/L 12/04/2024 4:40 PM T [facility] CO2 26.5 21 - 32 MMOL/L 12/04/2024 4:40 PM CDT [facility] GLUCOSE 215(H) 70 - 99 MG/DL 12/04/2024 4:40 PM CDT [facility] BUN 35(H) 7 - 18 MG/DL 12/04/2024 4:40 PM T [facility] CREATININE S/P/B 1.99(H) 0.70 - 1.30 MG/DL 12/04/2024 4:40 PM CDT [facility] CALCIUM S/P/B 10.2 8.4 - 10.5 MG/DL 12/04/2024 4:40 PM CDT [facility] BILIRUBIN TOTAL S/P/B 0.3 0.2 - 1.0 MG/DL 12/04/2024 4:40 PM CDT [facility] ALKALINE PHOSPHATASE S/P/B 92 45 - 115 U/L 12/04/2024 4:40 PM CDT [facility] AST 17 15 - 37 U/L 12/04/2024 4:40 PM CDT [facility] ALT 43 16 - 63 U/L 12/04/2024 4:[address] [facility] TOTAL PROTEIN S/P/B 7.4 6.4 - 8.2 G/DL 12/04/2024 4:[address] [facility] ALBUMIN S/P/B 3.6 3.4 - 5.0 G/DL 12/04/2024 4:[address] [facility] ANION GAP 9.5 5 - 15 MMOL/L 12/04/2024 4:[address] [facility] Comment:REFERENCE RANGE NOT ESTABLISHED OSMOLALITY (CALC) 294 MOSM/KG 025 4:[address] [facility] Comment:REFERENCE RANGE NOT ESTABLISHED GFR ESTIMATE 34(L) >90 ML/MIN/1. 73 M2 12/04/2024 4:[address] [facility] GFR NOTES GFR REFERENCE S: 12/04/2024 4:[address] [facility] Comment: THE ESTIMATED GFR IS CALCULATED [...] ml/min/1.73 m2 G5,KIDNEY FAILURE: <15 ml/min/1.73 m2 12/04/2024 10:0 0 AM CDT us Jillian Tena NP LABORATORY Final Resul t [facility] [place] [address] [place] [address], * (ABNORMAL) CBC W/DIFF AUTOMATED (12/04/2024 10:00 AM CDT) [facility] WBC 10.13 4.00 - 10.80 x10'3/uL 12/04/2024 4:[address] [facility] RBC 4.91 4.50 - 6.10 x10'6/uL 12/04/2024 4:[address] [facility] HGB 14.2 13.0 - 18.0 G/DL 12/04/2024 4:[address] [facility] HCT 44.6 37.0 - 52.0 % 12/04/2024 4:[address] [facility] MCV 90.8 78.0 - 100.0 FL 12/04/2024 4:[address] [facility] MCH 28.9 27.0 - 31.0 PG 12/04/2024 4:[address] [facility] MCHC 31.8(L) 33.0 - 36.0 G/DL 12/04/2024 4:[address] [facility] RDW 13.5 11.5 - 14.5 % 12/04/2024 4:[address] [facility] PLT 343 150 - 350 x10'3/uL 12/04/2024 4:[address] [facility] MPV 10.4 7.4 - 10.4 FL 12/04/2024 4:[address] [facility] DIFFERENTIAL TYPE AUTOMATED DIFFERENTIAL 12/04/2024 4:[address] [facility] NEUTROPHILS % 72.6 % 12/04/2024 4:[address] [facility] LYMPHOCYTES % 12.1 % 12/04/2024 4:[address] [facility] MONOCYTES % 10.4 % 12/04/2024 4:[address] [facility] EOSINOPHILS % 3.9 % 12/04/2024 4:[address] [facility] BASOPHILS % 0.7 % 12/04/2024 4:[address] [facility] IMMATURE GRANS % 0.3 % 12/04/2024 4:[address] [facility] ABS. NEUTROPHILS 7.35 1.60 - 8.30 x10'3/uL 12/04/2024 4:[address] [facility] ABS. LYMPHOCYTES 1.23 0.80 - 4.70 x10'3/uL 12/04/2024 4:[address] [facility] ABS. MONOCYTES 1.05 0.00 - 1.50 x10'3/uL 12/04/2024 4:[address] [facility] ABS. EOSINOPHILS 0.40 0.00 - 0.40 x10'3/uL 12/04/2024 4:[address] [facility] ABS. BASOPHILS 0.07 0.00 - 0.20 x10'3/uL 12/04/2024 4:[address] [facility] ABS. IMMATURE GRANULOCYTES 0.03 0.00 - 0.03 x10'3/uL 12/04/2024 4:[address] [facility] 12/04/2024 10:0 0 AM CDT Jillian Tean NP LABORATORY Final Resul t [facility] [address] [place] [address], * ULTRASOUND GENERIC (SCAN ORDER) (11/28/2024) Only the most recent of2 resultswithin the time period is included. Anatomical Region Laterality Modality Other 11/28/2024 [facility] Scanned SCANNING Final Resu lt * CT GENERIC (11/25/2024) Only the most recent of2 resultswithin the time period is included. Anatomical Region Laterality Modality Other 11/25/[address] [facility] Scanned SCANNING Final Resu lt * ECG GENERIC (SCAN ORDER) (11/25/2024) Only the most recent of2 resultswithin the time period is included. 11/25/[address] [facility] Scanned SCANNING Final Resu lt * OUTSIDE LAB (SCAN ORDER) (11/25/2024) Only the most recent of11 resultswithin the time period is included. 11/25/2024 Result [facility] Scanned SCANNING Final Resu lt * IMAGE GENERIC (11/25/2024) Only the most recent of2 resultswithin the time period is included. Anatomical Region Laterality Modality Other 11/25/2024 Result [facility] Scanned SCANNING Final Resu lt * PROSTATE SPECIFIC ANTIGEN,SCREENING (10/02/2024 9:49 AM CDT) PSA 3.21 <4.00 NG/ML 10/02/2024 3:[address] [facility] Comment: ASSAY PERFORMED BY ENZYME IMMUNOASSAY METHODOLOGY USING SIEMENS DIMENSION REAGENT. PATIENT RESULTS DETERMINED BY ASSAYS FROM DIFFERENT MANUFACTURERS AND/OR BY DIFFERENT METHODS MAY NOT BE COMPARABLE. 10/02/2024 9:49 AM CDT Result [facility] Jillian Tena MEDICAL LAB TECHNICIAN LABORATORY Final Resul t [facility] [address] [place] [address], * HEPATITIS C ANTIBODY (10/02/2024 9:49 AM CDT) [facility] HEPATITIS C AB NON-REACTI VE NON-REACT ILENE 10/02/2024 7:15 PM CDT [facility] Comment: ANTIBODIES TO HCV NOT DETECTED. DOES NOT EXCLUDE THE POSSIBILITY OF EXPOSURE TO HCV. 10/02/2024 9:49 AM CDT Jillian Tena NP LABORATORY Final Resul t [facility] [address] [place] [address], [place] [phone] [id number] * (ABNORMAL) VITAMIN D 25 OH (10/02/2024 9:49 AM CDT) [facility] VITAMIN D 25 HYDROXY TOTAL S/P/B 141.1(H) 30 - 100 NG/ML 10/02/2024 5:[address] [facility] Comment: DEFICIENT <20 INSUFFICIENT 20-30 SUFFICIENT 30-100 10/02/2024 9:49 AM CDT Jillian Tena NP LABORATORY Final Resul t [facility] [address] [place] [address], * REMOVAL IMPACTED CERUMEN IRRIGATION/LAVAGE UNILAT (10/02/2024 9:00 AM CDT) Jillian Kennedy NP - 10/02/2024 9:00 AM CDT Jillian Tena NP 10/02/2024 9:54 AM *Ear Cerumen Removal Date/Time: 10/02/2024 9:00 AM Performed by: Jillian Tena NP Authorized by: Jillian Tena NP Location details: left ear Procedure type: irrigation Jillian Tena NP PROCEDURE/MINOR SURGICAL OR DERABLES Final Result * (ABNORMAL) LIPID PANEL (09/26/2024 8:06 AM CDT) CHOLESTEROL 139 <200 MG/DL 09/26/2024 2:[address] [facility] TRIGLYCERIDES 137 <150 MG/DL 09/26/2024 2:[address] [facility] HDL 35(L) >40 MG/DL 09/26/2024 2:[address] [facility] LDL-C 77 <100 MG/DL 09/26/2024 2:[address] [facility] VLDL CALCULATION 27 5 - 28 MG/DL 09/26/2024 2:[address] [facility] CHOL/HDL RATIO 4.0 0.0 - 4.0 09/26/2024 2:[address] [facility] LDL/HDL 2.2(H) 0.41 - 2.13 09/26/2024 2:[address] [facility] NON HDL CHOLESTEROL 104 <140 MG/DL 09/26/2024 2:[address] [facility] 09/26/2024 8:06 AM CDT Jillian Tena MEDICAL LAB TECHNICIAN LABORATORY Final Resul t [facility] [address] [place] [address], [place] [phone] * HEMOGLOBIN, GLYCOSYLATED (09/26/2024) HGB A1C 6.7 % [address], [place] 09/26/2024 Jillian N Mallika MEDICAL LAB TECHNICIAN LABORATORY Final Resul t [address], [place] [address] [place] [address], * DIABETIC RETINOPATHY EXAM (NEGATIVE)(SCAN) (07/11/2021) us Documents Scanned SCANNING Final Result Performing Organization Address City/[facility]/ZIP Co de Phone Number [facility] ONBASE * COLONOSCOPY GENERIC (01/04/2021) 01/04/2021 Narrative 01/04/2021 Ordered by an unspecified provider. us Documents Scanned SCANNING Final Result from Last 3 Months or Most Recently Relevant to Health Maintenance Insurance [facility] [employer] [facility] Care Teams Recooperer Relationship Specialty Start Date End Date Jillian Tena NP [address] [facility] [address] [place] [address] PCP - General NURSE PRACTITIONER 02/14/24
--- OUTSIDE RECORDS SUMMARY | 2024-12-31 14:50 | XMS_ITS | Encounter Summary ---
Author Organization [facility] Address [facility] [place] [address] Care Team Providers Care Hotel Dining Room Cashier Name Role Phone Jillian Tena NP Primary Care Provider [phone] Reason for Visit * Reason Onset Date Comments Forms 12/19/2024 Encounter Details Date Type Department Care Team (Late st Contact Info) Description 12/19/2024 Telephone [facility] [place] [address] [place] [address] Jillian Tena NP [address] [place] [address] Forms Social History Tobacco Use Types Packs/Day Years [...] Sex Assigned at Male 04/11/2018 3:37 PM DIRECTOR OF ANALYTICS Legal Sex Male 5:13 PM CDT Gender Identity Male 04/11/2018 3:37 PM DIRECTOR OF ANALYTICS Sexual Orientation Straight 04/11/2018 3: 37 PM DIRECTOR OF ANALYTICS documented as of this encounter Progress Notes * Vanessa Tan LPN - 12/31/2024 9:27 AM CDT Mark called and he only needs one page of the form resent. [facility] is faxing it. [facility] forms withall corrected dates are being scanned to chart as well. Patient is aware and we updated phone numbers as well. Patient says calling his wifes phone is best. * Vanessa Tan LPN - 12/29/2024 11:22 AM CDT I still can't reach him, but I have the paper work filled out for a 6 month time frame, if he callsback I just need to know where to send it. Also the final two pages of it, he did not give me a newcopy, if he needs that updated, I will need a new copy to put in correct dates. I have asked [facility] to scan it in his chart so that when he calls back whoever he talks to can send it. * Vanessa aTn LPN - 12/24/2024 10:32 AM CDT I still can not get a hold of Mark. Voicemail is full. I have mailed him a letter asking him to call. I have his paperwork with me, whichever office I am at so please just transfer if he calls. * Vanessa Tan LPN - 12/23/2024 10:38 AM CDT I attempted to call patient again, but he does not have voicemail set up. * Vanessa Tan LPN - 12/19/2024 12:17 PM CDT I have tried to call patient back to clarify what he needs. I have a blank copy of his FMLA form that I am glad to fill out for him, just want to confirm what he specifically needs it to say. I was not able to leave a message. If he calls back just transfer to me. Thank you! * Emerald Worrell - 12/19/2024 11:51 AM CDT The patient is calling about the FMLA paperwork he left with the office on December 18, 2024. He said after speaking with his employer the leave will need to be for 3 months beginning on eitherNovember 25 or December 01 2024. documented in this encounter Plan of Treatment Upcoming Encounters Date Type Department Care Team (Late st Contact Info) Description 01/15/2025 9:00 AM CDT Office Visit [facility] [place] [address] [place] [address] Jillian Tena, AMERICO [address] [place] [address] 04/13/2025 2:20 PM DIRECTOR OF ANALYTICS [facility] [address] [facility], [facility] [address] [place] [address] Cleve Montoya MD [address] [facility], [facility] [address] [place] [address] 04/14/2025 11:00 AM DIRECTOR OF ANALYTICS [facility] [place] [address] [place] [address] Jillian Tena NP [address] [place] [address] documented as of this encounter Visit Diagnoses Not on filedocumented in this encounter Care Teams Hotel Dining Room Cashier Relationship Specialty Start Date End Date Jillian Tena, BONDACTOR MACHINE OPERATOR [address] [place] [address] PCP - General NURSE PRACTITIONER 02/14/24 documented as of this encounter
--- OUTSIDE RECORDS SUMMARY | 2024-12-31 14:50 | XMS_ITS | Patient Health Record ---
Author Organization [facility] Address [address] [place], [place] [id number] Care Team Providers Care Fisher Eel Name Role Phone SATURNINO WARE Unavailable [phone] Saturnino Tena Unavailable Unavailable Reason For Referral No Information Medications Medication SIG (Take, Route, Fr equency, Duration) Notes Start Date End Date Status Clotrimazole 1 % 1 application Acquisition Advisor ally Once a day; Duration: 30 days 12/11/2024 12/06/2025 Active Vital Signs Weight-kg 99.79 kg 12/11/2024 Weight 220 lbs 12/11/2024 Encounters Encounter Location Date Provider Diagnosis [facility] [place] [address] [place], [place] [id number] 12/11/2024 SATURNINO WARE Tinea unguium B35.1 ; [...] foot (ICD-10 - M79.672) Plan Of Treatment Next Appt Details Provider Name:SATURNINO Omalley ALEENA PRADO, 02/11/2025 07:50:00 AM, [address] [facility] [address], [place], [place], [id number], Insurance Providers Payer Name Payer Address Payer Phone Subscriber Number Group Number Insured Name Patient Relationship to Insured Coverage Start Date Coverage End Date Medicare Part B [place] [address] [place] [address] [id number] MARI GREY Self - patient is the insured [facility] ([facility]) ATTN CLAIMS [address] [place] [address] [id number] MARI GREY Self - patient is the insured Medical (General) History Medical History History ICD Code kidney stones Skin Disorder Arthritis Bladder infections Sleep apnea Diabetic high blood pressure
== END 2024-12-31 14:14 | disposition home or self-care (01) ==
PROVIDERS: PCP Nurse Practitioner; Visit Provider Nurse Practitioner
DX: I50.32 Chronic diastolic (congestive) heart failure (principal); I35.0 Nonrheumatic aortic (valve) stenosis; R01.1 Cardiac murmur, unspecified; I51.7 Cardiomegaly
CPT/HCPCS: 93306

== ENCOUNTER 2025-03-04 10:44 | Outpatient (CLI) | payer BC, MEDICARE, OTHER, SELFPAY ==
--- OUTSIDE RECORDS SUMMARY | 2024-12-11 02:00 | XMS_ITS ---
Author Organization [facility] Address [address] [place], [place] [id number] Care Team Providers Care Document Processor Name Role Phone SATURNINO WARE Unavailable [phone] Saturnino Tena Unavailable Unavailable REASON FOR VISIT *General care Medications Medication SIG (Take, Route, Frequency, Duration) Notes Start Date End Date Status Clotrimazole 1 % Cream 1 application Ext ernally Once a day; Duration: 30 days 12/11/2024 12/06/2025 Active Vital Signs Weight 220 lbs 12/11/2024 Weight-kg 99.79 kg 12/11/2024 Encounters Encounter Location Date Provider Diagnosis [facility] [address] [place], [place] [id number] 12/11/2024 SATURNINO WARE Tinea unguium B35.1 ; Ingrowing nail L60.0 ; Type 2 diabetes mellitus with other circulatory complications E11.59 ; Pain in right foot M79.671 and Pain in left foot M79.672 Assessments Encounter Date Diagnosis (ICD Code) Assessment Notes Treatment Notes Treatment Clinical Notes Section Notes 12/11/2024 Tinea unguium (ICD-10 - B35.1) NAIL DEBRIDEMENT: Nails 1-5 Bilateral were debrided extensively with nail nippers and emery board, reducing length and girth to pink healthy tissue with any subungual debris and necrotic tissue removed 12/11/2024 Ingrowing nail (ICD-10 - L60.0) 12/11/2024 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 The patient was instructed to check his feet daily to report any problems or signs of infection immediately. The patient was provided written information on Diabetic Foot Care as well as the Amputation Prevention Guide. 12/11/2024 Pain in right foot (ICD-10 - M79.671) 12/11/2024 Pain in left foot (ICD-10 - M79.672) Plan Of Treatment Medication Medication Name Sig Start Date Stop Date Notes Clotrimazole 1 % Cream 1 application Ext ernally Once a day; Duration: 30 days 12/11/2024 12/06/2025 Treatment Notes Assessment Notes Tinea unguium NAIL DEBRIDEMENT: Na ils 1-5 Bilateral were debrided extensively with nail nippers and emery board, reducing length and girth to pink healthy tissue with any subungual debris and necrotic tissue removed Type 2 diabetes mellitus wit h other circulatory complications Diabetic Foot Care: The patient was educated on diabetes and the lower extremity. The patient was instructed to check his feet daily to report any problems or signs of infection immediately. The patient was provided written information on Diabetic Foot Care as well as the Amputation Prevention Guide. Next Appt Details Follow Up: 3 Months,Cecil TEJADA on: History and Physical Notes * HPI (History of Present Illness) Category Sub-Category Detail Notes Category Not es HPI General care Patient presents to the office for diabetic foot care. Patient states that their nails are thickened, elongated and painful. Patient states that it is aggravated by shoe gear. Onset is gradual., Patient is taking prescription blood thinners., Date last seen by Dr. Tena was Nov 2024. MA , Initials ch Examination Category Sub-Category Detail Notes Category Not es Constitutional Constitutional The patient is a wake, alert, well developed, well groomed and well nourished. Dermatologic Skin findings: bilateral, Skin is thin, atrophic and lacking pedal hair. Nail pathology: Nails 1-5 bilateral are elongated, thick, discolored, and dystrophic with subungual debris. They are painful to palpation Musculoskeletal Muscle Strength Muscle strength is 5/5 in regards to dorsiflexion, plantarflexion, inversion, and eversion in bilateral lower extremities. Neurologic Mulders sign: bilateral, negative Sharp sensation: bilaterally, normal, sharp/dull except right 1st toe Gross sensation Gross sensation is i ntact to light touch. Vascular Dorsalis pedis pulse: bilateral, 1/4 Posterior tibial pulse: bilaterally, 2/4 Progress Notes * MARI GREYDOB:[birth year] (74 yo M)Acc No.[id number]:12/11/2024 Progress Notes Patient: MARI SÁNCHEZ Provider: Nichole WARE :1950 A ge:74 Y S ex:Male Date:12/11/2024 Address:[address] [place], [place] [id number] Subjective: * Chief Complaints: * * General care * HPI: H PI: General care P atient presents to the office for diabetic foot care. Patient states that their nails are thickened, elongated and painful. Patient states that it is aggravated by shoe gear. Onset is gradual., Patient is taking prescription blood thinners., Date last seen by Dr. Tena was Nov 2024. MA , Initials ch. * ROS: G eneral / Constitutional: Patient denies f atigue, fever, chills. M usculoskeletal: Patient denies m uscle cramps. P eripheral Vascular: Patient complains of e mariola comes and goes. ? S kin: Patient denies a thletes foot. P atient complains of?fungal nails, discoloration. N eurologic: Patient complains of n umbness. * Medical History: Kidney stones Skin Disorder Arthritis Bladder infections Sleep apnea Diabetic High blood pressure Medical History Verified * Surgical History: No Surgical History documented. Surgical History verified. * Hospitalization/Major Diagno stic Procedure: No Hospitalization Documented. Hospitalization Verified. * Family History: N o Family History documented.. F amily History Verified.. * Social History: Social History Verified. No Social History documented. * Medications: N one * Allergies: y esAllergies Verified. Objective: * Vitals: W t: 220 lbs, Wt-k.79 kg. * Examination: C onstitutional: Constitutional T he patient is awake, alert, well developed, well groomed and well nourished.. D ermatologic: Skin findings: b ilateral, Skin is thin, atrophic and lacking pedal hair.. Nail pathology: N ails 1-5 bilateral are elongated, thick, discolored, and dystrophic with subungual debris. They are painful to palpation. ? M usculoskeletal: Muscle Strength M uscle strength is 5/5 in regards to dorsiflexion, plantarflexion, inversion, and eversion in bilateral lower extremities.. ? N eurologic: Mulders sign: b ilateral, negative. Sharp sensation: b ilaterally, normal, sharp/dull except right 1st toe. Gross sensation G ross sensation is intact to light touch..? V ascular: Dorsalis pedis pulse: b ilateral, 1/4. Posterior tibial pulse: b ilaterally, 2/4. Assessment: * Assessment: 1. T inea unguium - B35.1 (Primary) 2 . I ngrowing nail - L60.0 ?3. T ype 2 diabetes mellitus with other circulatory complications - E11.59 ?4. P ain in right foot - M79.671 5 . P ain in left foot - M79.672 ? Plan: * Treatment: 2. T ype 2 diabetes mellitus with other circulatory complications Notes: Diabetic Foot Care: The patient was educated on diabetes and the lower extremity. The patient was instructed to check his feet daily to report any problems or signs of infection immediately. The patient was provided written information on Diabetic Foot Care as well as the Amputation Prevention Guide. * Follow Up: 3 Months, Billing Information: * Visit Code: 74864 Office Visit, New Pt., Level 3. * Electronic signature of SUMANTH WARE DPM on 03/04/2025 at 12:21 PM ENGINEERING SCIENTIST Sign off status: Pending * Provider: Nichole WARE Date: 0 12/11/2024 Generated for Monica jain/Elba/Michael on: 05/04/2024 12:21 PM ENGINEERING SCIENTIST
--- OUTSIDE RECORDS SUMMARY | 2025-02-11 01:50 | XMS_ITS ---
Author Organization [facility] Address [address] [place], [place] [id number] Care Team Providers Care Cloth Seconds Sorter Name Role Phone SATURNINO WARE Unavailable [phone] Saturnino eTna Unavailable Unavailable REASON FOR VISIT *General care Encounters Encounter Location Date Provider Diagnosis [facility] [place] [address] [place], [place] [id number] 02/11/2025 SATURNINO WARE Plan Of Treatment No Information Progress Notes * MARI GREYDOB:[birth year] (74 yo M)Acc No.[id number]:02/11/2025 Patient: Desire MARI JONES Provider: Nichole WARE :1950 A ge:74 Y S ex:Male Date:02/11/2025 Address:[address], [facility] Subjective: * Chief Complaints: * * General care Billing Information: * Procedure Codes: * Electronic signature of SUMANTH WARE DPM on 03/04/2025 at 12:21 PM COMPENSATION SUPERVISOR Sign off status: Pending * Provider: Nichole WARE Date: Generated for Printi ng/Faxing/eTransmitting on: 05/04/2024 12:21 PM COMPENSATION SUPERVISOR
[2025-03-04 12:18] LABS: Albumin Level 4.6 g/dL (3.5-5.1); Anion Gap 10 mmol/L (4-12); Blood Urea Nitrogen 30 mg/dL (9-20); Calcium 10.5 mg/dL (8.4-10.2); Carbon Dioxide 22 mmol/L (22-30); Chloride 104 mmol/L (98-107); Estimated Glomerular Filt Rate 43; Glucose 173 mg/dL (65-110); Potassium 4.9 mmol/L (3.4-5.0); Sodium 136 mmol/L (137-145)
[2025-03-04 12:21] LABS: Total Protein Urine Random 109 mg/dL; Ur Ttl Prot Creatinine Ratio 1.47 mg/mg (0-0.20)
--- OUTSIDE RECORDS SUMMARY | 2025-03-04 12:21 | XMS_ITS | Patient Health Record ---
Author Organization [facility] Address [address] [place], [place] [address] Care Team Providers Care Boat Hoist Operator Helper Name Role Phone SATURNINO WARE Unavailable [phone] Saturnino Tena Unavailable Unavailable Allergies No Known Allergies Reason For Referral No Information Medications Medication SIG (Take, Route, Frequency, Duration) Notes Start Date End Date Status Clotrimazole 1 % Cream 1 application Ext ernally Once a day; Duration: 30 days 12/11/2024 12/06/2025 Active Vital Signs Weight-kg 99.79 kg 12/11/2024 Weight 220 lbs 12/11/2024 Encounters Encounter Location Date Provider Diagnosis [facility] [place] [address] [place], [place] [id number] 12/11/2024 SATURNINO WARE Tinea unguium B35.1 ; [...] foot (ICD-10 - M79.672) Plan Of Treatment No Information Insurance Providers Payer Name Payer Address Payer Phone Subscriber Number Group Number Insured Name Patient Relationship to Insured Coverage Start Date Coverage End Date [facility] ([facility]) ATTN CLAIMS [address] [place] [address] [id number] MARI GREY Self - patient is the insured Medicare Part B [place] [address] [place] [address] [id number] MARI GREY Self - patient is the insured Medical (General) History Medical History History ICD Code kidney stones Skin Disorder Arthritis Bladder infections Sleep apnea Diabetic high blood pressure
--- OUTSIDE RECORDS SUMMARY | 2025-03-04 12:21 | XMS_ITS | Patient Health Record ---
Author Organization [facility] Address [address] [place], [place] [address] Care Team Providers Care Cattle And Wheat Farmer Name Role Phone DALE Armendariz Unavailable [phone] Reason For Referral No Information Plan Of Treatment No Information Insurance Providers Payer Name Payer Address Payer Phone Subscriber Number Group Number Insured Name Patient Relationship to Insured Coverage Start Date Coverage End Date Medicare of [place] J10 [address] [place] [address] [id number] Mark Mays Self - patient is the insured [employer] [facility] [address] [place] [address] [phone] [id number] Mark Mays Self - patient is the insured
[2025-03-05 14:08] LABS: Albumin 3.9 g/dL (2.9-4.4); Alpha-1-Globulin 0.2 g/dL (0.0-0.4); Alpha-2-Globulin 0.8 g/dL (0.4-1.0); Gamma Globulin 1.4 g/dL (0.4-1.8)
[2025-03-05 20:07] LABS: Anti-GBM Antibodies <0.2 units (0.0-0.9)
[2025-03-06 10:09] LABS: ANA by IFA Rfx Titer/Pattern Negative (.)
[2025-03-06 15:09] LABS: Immunoglobulin A, Qn 344 mg/dL (61-437); Immunoglobulin G, Qn 1529 mg/dL (603-1613); Immunoglobulin M, Qn 148 mg/dL (15-143)
[2025-03-06 15:09] LABS: Albumin, U 41.1 % (.); Alpha-1-Globulin, U 2.8 % (.); Alpha-2-Globulin, U 14.4 % (.); Beta Globulin, U 16.7 % (.); Gamma Globulin, U 25.1 % (.); Immunofixation (IFE), Urine Comment: (.)
== END 2025-03-04 10:45 | disposition home or self-care (01) ==
PROVIDERS: PCP Nurse Practitioner; Visit Provider Internal Medicine Nephrology
DX: E11.22 Type 2 diabetes mellitus with diabetic chronic kidney disease (principal); I12.9 Hypertensive chronic kidney disease with stage 1 through stage 4 chronic kidney disease, or unspecified chronic kidney disease; N18.32 Chronic kidney disease, stage 3b
CPT/HCPCS: 36415; 80069; 82570; 82784; 84155; 84156; 84165; 84166; 86037; 86038; 86160; 86225; 86334; 86335; 86364